=== PATIENT | male | born 1950 | race Caucasian/White ===

== ENCOUNTER 2016-11-26 15:20 | Emergency (ER) | payer MEDICARE, OTHER | END 2016-11-26 16:08 | disposition home or self-care (01) | DX: R59.0 Localized enlarged lymph nodes (principal); S29.011A Strain of muscle and tendon of front wall of thorax, initial encounter; X50.9XXA Other and unspecified overexertion or strenuous movements or postures, initial encounter; I10 Essential (primary) hypertension; I25.10 Atherosclerotic heart disease of native coronary artery without angina pectoris; I25.2 Old myocardial infarction; E11.9 Type 2 diabetes mellitus without complications; Z79.4 Long term (current) use of insulin; E78.00 Pure hypercholesterolemia, unspecified; G47.30 Sleep apnea, unspecified; K21.9 Gastro-esophageal reflux disease without esophagitis; N40.0 Benign prostatic hyperplasia without lower urinary tract symptoms; F17.200 Nicotine dependence, unspecified, uncomplicated ==

== ENCOUNTER 2016-12-23 08:33 | Day surgery (SDC) | payer MEDICARE, OTHER ==
[2016-12-23] MEDS ORDERED: LACTATED RINGERS 1,000 ML IV ONE ×2 (09:28→11:16)
[2016-12-23] MEDS ORDERED: fentaNYL 100 MCG/2 ML VIAL IVP ONE (10:37)
[2016-12-23] MEDS ORDERED: MIDAZOLAM 2 MG/2 ML VIAL IVP ONE (10:37)
== END 2016-12-23 08:34 | disposition home or self-care (01) ==
PROC: 0DJD8ZZ Inspection of Lower Intestinal Tract, Via Natural or Artificial Opening Endoscopic (ICD-10-PCS; principal; 2016-12-23 10:00)
DX: Z12.11 Encounter for screening for malignant neoplasm of colon (principal); Z86.010 Personal history of colon polyps; Z79.82 Long term (current) use of aspirin; E78.00 Pure hypercholesterolemia, unspecified; E11.9 Type 2 diabetes mellitus without complications; Z79.84 Long term (current) use of oral hypoglycemic drugs; I25.2 Old myocardial infarction; J45.909 Unspecified asthma, uncomplicated; G47.30 Sleep apnea, unspecified
CPT/HCPCS: G0105; J7120

== ENCOUNTER 2017-04-17 08:41 | Outpatient (CLI) | payer MEDICARE, OTHER ==
--- NOTE | 2017-04-17 19:55 | CT Report ---
EXAM CT LUNG SCREEN EXAM DATE: 04/17/2017 09:10 AM. HISTORY: 66-year-old patient with [id number] smoking history . Currently smoking: Yes. . COMPARISON: None. TECHNIQUE: CT examination of the entire thorax without contrast was performed using low-dose techniqu e. Thin section coronal, axial, sagittal and MIP axial images were obtained. In accordance with CT protocol optimization, one or more of the following dose reduction techniques w ere utilized for this exam: automated exposure control, adjustment of mA and/or KV based on patient s ize, or use of iterative reconstructive technique. FINDINGS: Nodules: Right upper lobe: None. Right middle lobe: None. Right lower lobe: None. Left upper lobe: None. Left lower lobe: None. Emphysema: None. Pleura: Unremarkable. Aorta: Mild atherosclerotic calcifications. Mediastinum: Unremarkable. Coronary Calcifications: Mild Other Findings: None. IMPRESSION: Negative Lung-RADS ASSESSMENT CATEGORY: 1 - negative RECOMMENDATION: Continue with annual screening with low-dose CT in 12 months. [facility] Referring Provider Line: [phone] SITE ID: [id number]
== END 2017-04-17 08:42 | disposition home or self-care (01) ==
LOC: DI 08:41
PROVIDERS: ATTEND Physician Assistant
DX: Z12.2 Encounter for screening for malignant neoplasm of respiratory organs (principal); F17.210 Nicotine dependence, cigarettes, uncomplicated

== ENCOUNTER 2017-05-25 10:40 | Outpatient (CLI) | payer MEDICARE, OTHER | END 2017-05-25 10:41 | disposition home or self-care (01) | LOC: SC 10:40 | PROVIDERS: ATTEND Nurse Practitioner Family | DX: G47.33 Obstructive sleep apnea (adult) (pediatric) (principal) | CPT/HCPCS: 99214; G0463; 99212 ==

== ENCOUNTER 2017-06-18 14:16 | Outpatient (CLI) | payer MEDICARE, OTHER ==
[2017-06-18 14:38] LABS: CALCIUM 9.4 mg/dL (8.5-10.3); POTASSIUM 4.2 mmol/L (3.5-5.0)
== END 2017-06-18 14:17 | disposition home or self-care (01) ==
LOC: LAB 14:16
PROVIDERS: ATTEND Physician Assistant
DX: I50.9 Heart failure, unspecified (principal)
CPT/HCPCS: 36415; 80048

== ENCOUNTER 2017-07-03 09:00 | Emergency (ER) | payer MEDICARE, OTHER ==
[2017-07-03 09:27] VITALS: BP 111/62
--- NOTE | 2017-07-03 10:20 | ED Physician Documentation ---
PD HPI URI - Stated complaint Stated Complaint: THROAT PX/CONGESTION - Chief complaint Chief Complaint: Resp - History obtained from History obtained from: Patient - History of Present Illness Timing - onset: How many days ago (3-4) Timing duration: Days Timing details: Gradual onset, Still present Associated symptoms: Fever, Chills, Productive cough, Dyspnea. No: Hemoptysis, Chest pain, NVD Contributing factors: COPD / asthma. No: Sick contact, Travel Similar symptoms before: Diagnosis (bronchitis and asthma exac.) Recently seen: Not recently seen Review of Systems Constitutional: reports: Fever, Chills, Myalgias Nose: reports: Congestion Throat: reports: Sore throat Cardiac: denies: Chest pain / pressure, Palpitations Respiratory: reports: Dyspnea, Cough, Wheezing GI: denies: Abdominal Pain, Nausea, Vomiting, Diarrhea PD PAST MEDICAL HISTORY - Past Medical History Past Medical History: Yes Cardiovascular: Hypertension, High cholesterol, Coronary artery disease, [place] Respiratory: Sleep apnea, CPAP use, Other Endocrine/Autoimmune: Type 2 diabetes GI: GERD : Benign prostate hypertrophy HEENT: Glaucoma Psych: Depression Musculoskeletal: Chronic back pain Derm: Other - Past Surgical History Past Surgical History: Yes General: Cholecystectomy, Appendectomy, Colonoscopy - Present Medications Home Medications: Ambulatory Orders Medication Instructions Recorded Confirmed Dorzolamide/Timolol/Pf [Cosopt Pf 1 each OP DAILY 02/01/14 12/23/16 Eye Drops] Fluticasone/Salmeterol [Advair 250 mcg INH BID 02/01/14 12/23/16 250-50 Diskus] Furosemide [Lasix] 40 mg PO DAILY PRN 02/01/14 12/23/16 Insulin Regular, Human [Humulin R] 16 unit SQ DAILY PM 02/01/14 12/23/16 Insulin Regular, Human [Humulin R] 26 unit SQ QDBREAKFAST 02/01/14 12/22/16 Ipratropium/Albuterol [Combivent 4 gm IH QID PRN 02/01/14 12/23/16 Respimat] Lisinopril 10 mg PO DAILY 02/01/14 12/23/16 Metformin HCl [Glucophage Xr] 1,000 mg PO QPM 02/01/14 12/23/16 Metoprolol Tartrate 100 mg PO DAILY 02/01/14 12/23/16 Terazosin [Hytrin] 10 mg PO DAILY 02/01/14 12/23/16 Insulin NPH Human Isophane 0 units SQ TID PRN 02/02/14 12/23/16 [Novolin N] Aspirin 325 mg PO DAILY 12/22/16 12/22/16 Empagliflozin/Metformin HCl 1,000 mg PO BID 12/22/16 12/23/16 [Synjardy 5-1,000 mg Tablet] Ibuprofen [Motrin] 800 mg PO DAILY 12/22/16 12/22/16 Rosuvastatin Calcium [Crestor] 20 mg PO DAILY 12/22/16 12/23/16 Azithromycin [Zithromax] 250 mg PO DAILY #6 tablet 07/03/17 Benzonatate [Tessalon] 100 mg PO TID PRN #25 capsule 07/03/17 guaiFENesin/CODEINE [Robitussin AC] 10 ml PO Q6H PRN #240 ml 07/03/17 - Allergies Allergies/Adverse Reactions: Allergies Allergy/AdvReac Type Severity Reaction Status Date / Time prednisone AdvReac Rash Verified 07/03/17 09:27 - Social History Does the pt smoke?: Yes Smoking Status: Current every day smoker Does the pt drink ETOH?: Yes ETOH Use: Wine, Beer, Liquor Does the pt have substance abuse?: No - Immunizations Immunizations are current?: Yes - POLST Patient has POLST: No PD ED PE NORMAL - Vitals Vital signs reviewed: Yes - General General: Alert and oriented X 3, No acute distress, Well developed/nourished - HEENT HEENT: Moist mucous membranes, Pharynx benign - Neck Neck: Supple, no meningeal sign, No adenopathy - Cardiac Cardiac: RRR, No murmur - Respiratory Respiratory: Clear bilaterally, Other - Abdomen Abdomen: Soft, Non tender - Derm Derm: Normal color, Warm and dry, No rash Results - Vitals Vitals: Vital Signs - 24 hr 07/03/17 09:22 Temperature 36.5 C Heart Rate 66 Respiratory 18 Rate Blood Pressure 111/62 O2 Saturation 98 Oxygen O2 Source Room air PD MEDICAL DECISION MAKING - ED course Complexity details: considered differential, d/w patient (he is quite convinced that antibiotics will be important to recovery. Will treat with Zpack and also / cough med. He does not like to take steroids of any sort. ) Departure - Departure Disposition: Home, Self Care Clinical Impression: Upper respiratory infection Qualifiers: URI type: unspecified URI Qualified Code(s): J06.9 - Acute upper respiratory infection, unspecified Condition: Stable Record reviewed to determine appropriate education?: Yes Instructions: ED Upper Resp Infec Abx Tx Follow-Up: Uriel Crystal MD [Primary Care Provider] - Prescriptions: Azithromycin [Zithromax] 250 mg PO DAILY #6 tablet Benzonatate [Tessalon] 100 mg PO TID PRN #25 capsule PRN Reason: Cough guaiFENesin/CODEINE [Robitussin AC] 10 ml PO Q6H PRN #240 ml PRN Reason: Cough Comments: Drink lots of fluids. Continue the guaifenesin for congestion. Tylenol or ibuprofen if needed for fevers and pains. This is most likely a viral illness though there is potential for bacterial sometimes. The Zithromax as you have taken in the past as directed for 5 days. Use Tessalon and cough medicine if needed for cough and congestion. Recheck if not improving over the next 3-5 days. Discharge Date/Time: 07/03/17 10:36
== END 2017-07-03 10:36 | disposition home or self-care (01) ==
LOC: ED 09:00
DX: J06.9 Acute upper respiratory infection, unspecified (principal); I10 Essential (primary) hypertension; I25.10 Atherosclerotic heart disease of native coronary artery without angina pectoris; I25.2 Old myocardial infarction; E11.9 Type 2 diabetes mellitus without complications; Z79.4 Long term (current) use of insulin; E78.00 Pure hypercholesterolemia, unspecified; K21.9 Gastro-esophageal reflux disease without esophagitis; N40.0 Benign prostatic hyperplasia without lower urinary tract symptoms; G47.30 Sleep apnea, unspecified; F17.200 Nicotine dependence, unspecified, uncomplicated
CPT/HCPCS: 99283

== ENCOUNTER 2017-07-06 09:39 | Outpatient (CLI) | payer MEDICARE, OTHER | END 2017-07-06 09:40 | disposition home or self-care (01) | LOC: SC 09:39 | PROVIDERS: ATTEND Nurse Practitioner Family | DX: G47.33 Obstructive sleep apnea (adult) (pediatric) (principal) | CPT/HCPCS: 99214; G0463; 99212 ==

== ENCOUNTER 2018-01-04 11:53 | Outpatient (CLI) | payer MEDICARE, OTHER ==
[2018-01-04 12:52] LABS: BASOPHILS # (AUTO) 0.1 10^3/uL (0.0-0.1); BASOPHILS % (AUTO) 0.6 %; EOSINOPHILS # (AUTO) 0.3 10^3/uL (0.0-0.7); EOSINOPHILS % (AUTO) 2.9 %; LYMPHOCYTES # (AUTO) 1.6 10^3/uL (1.5-3.5); LYMPHOCYTES % (AUTO) 14.6 %; MEAN CORPUSCULAR HEMOGLOBIN 28.9 pg (27.0-31.0); MEAN CORPUSCULAR HGB CONC 33.5 g/dL (32.0-36.0); MEAN CORPUSCULAR VOLUME 86.2 fL (80.0-94.0); MONOCYTES # (AUTO) 0.6 10^3/uL (0.0-1.0); MONOCYTES % (AUTO) 5.5 %; NEUTROPHILS # (AUTO) 8.5 10^3/uL (1.5-6.6); NEUTROPHILS % (AUTO) 76.4 %; PLT - PLATELET COUNT 163 10^3/uL (130-450); RED BLOOD COUNT 4.49 10^6/uL (4.70-6.10); RED CELL DISTRIBUTION WIDTH 15.3 % (12.0-15.0); WHITE BLOOD COUNT 11.1 x10^3/uL (4.8-10.8)
[2018-01-04 12:57] LABS: PT - PROTHROMBIN TIME 11.3 secs (9.9-12.6)
--- NOTE | 2018-01-04 13:03 | Ultrasound Report ---
COMPLETE ABDOMINAL ULTRASOUND: 01/04/2018 CLINICAL INDICATION: Right-sided pain. TECHNIQUE: Real-time scanning was performed with title insurance sales representative static images obtained. FINDINGS: The liver measures 18.6 cm. Hepatic echogenicity is diffusely increased, compatible with fatty infiltration. No focal parenchymal lesion or intrahepatic biliary dilatation is seen. The common bile duct measures 5 mm. The gallbladder is surgically absent. The pancreas is obscured by bowel gas. The spleen measures 10.8 cm, and appears unremarkable. The right kidney measures 12.4 cm, and the left kidney measures 13.6 cm. Incidental cysts are present. No hydronephrosis or solid renal mass is seen. The visualized abdominal aorta is normal in caliber. The inferior vena cava is unremarkable. No free fluid is present. IMPRESSION: FATTY INFILTRATION OF THE LIVER. CHANGES OF CHOLECYSTECTOMY. TD: 01/04/2018 12:44
[2018-01-04 13:32] LABS: ALBUMIN 4.3 g/dL (3.2-5.5); ALBUMIN/GLOBULIN RATIO 1.3 (1.0-2.2); ALKALINE PHOSPHATASE 74 IU/L (42-121); ALT ALANINE AMINOTRANSFERASE 29 IU/L (10-60); AMYLASE 175 U/L (28-100); AST ASPARTATE AMINOTRANSFERASE 22 IU/L (10-42); BILIRUBIN,TOTAL 0.6 mg/dL (0.2-1.0); BUN - BLOOD UREA NITROGEN 27 mg/dL (6-20); CALCIUM 9.6 mg/dL (8.5-10.3); CARBON DIOXIDE - CO2 27 mmol/L (21-32); CHLORIDE 103 mmol/L (101-111); CHOL/HDL RATIO 3.7 (<5.0); CHOLESTEROL 143 mg/dL; CREATININE 1.1 mg/dL (0.6-1.2); GFR - MDRD 66 (>89); GLUCOSE 119 mg/dL (70-100); HDL CHOLESTEROL 39 mg/dL; LDL CHOLESTEROL,CALCULATED 71 mg/dL; LDL/HDL RATIO 1.8 (<3.6); LIPASE 301 U/L (22-51); SODIUM 139 mmol/L (135-145); TOTAL PROTEIN 7.6 g/dL (6.7-8.2); VLDL CHOLESTEROL 33 mg/dL
== END 2018-01-04 11:54 | disposition home or self-care (01) ==
LOC: DI 11:53
PROVIDERS: ATTEND Specialist
DX: R10.11 Right upper quadrant pain (principal); E11.9 Type 2 diabetes mellitus without complications; C61 Malignant neoplasm of prostate; K76.0 Fatty (change of) liver, not elsewhere classified
CPT/HCPCS: 36415; 76700; 80053; 80061; 82150; 83690; 83721; 84153; 85025; 85610; 85730

== ENCOUNTER 2018-01-07 06:47 | Outpatient (CLI) | payer MEDICARE, OTHER ==
[2018-01-07] MEDS ORDERED: IOPAMIDOL-300 100 ML VIAL ONE (07:51)
[2018-01-07] MEDS ORDERED: IOPAMIDOL-300 100 ML VIAL IVP ONE (08:14)
--- NOTE | 2018-01-07 12:46 | CT Report ---
CT ABDOMEN WITH AND WITHOUT CONTRAST: 01/07/2018 INDICATION: Pancreatitis. COMPARISON: Ultrasound 01/04/2018. TECHNIQUE: Axial CT images of the abdomen were obtained prior to and following 100 mL Isovue 300 intravenously, with early arterial and portal venous phase images obtained. FINDINGS: Limited evaluation of the lung bases is unremarkable. The patient is status post cholecystectomy. The liver, spleen, and adrenal glands are unremarkable. The kidneys demonstrate cortical cysts bilaterally. The pancreas demonstrates homogeneous attenuation and enhancement. There is no evidence of pancreatic mass or inflammation. No bowel dilatation, free gas, or free fluid is present. No abdominal adenopathy is seen. Osseous structures demonstrate degenerative changes. IMPRESSION: NO EVIDENT COMPLICATIONS OF PANCREATITIS. CHANGES OF CHOLECYSTECTOMY. CT DOSE REDUCTION STATEMENT In accordance with CT protocol optimization, one or more of the following dose reduction techniques were utilized for this exam: automated exposure control, adjustment of mA and/or KV based on patient size, or use of iterative reconstructive technique. TD: 01/07/2018 10:54
== END 2018-01-07 06:48 | disposition home or self-care (01) ==
LOC: DI 06:47
PROVIDERS: ATTEND Specialist
DX: R74.8 Abnormal levels of other serum enzymes (principal); K85.90 Acute pancreatitis without necrosis or infection, unspecified
CPT/HCPCS: 74170; Q9967

== ENCOUNTER 2018-03-07 14:42 | Outpatient (CLI) | payer MEDICARE, OTHER ==
--- NOTE | 2018-03-07 16:58 | XRAY Report ---
Procedure Date: 03/07/2018 Accession Number: [id number] / [id number] Procedure: XR - Wrist 4 View RT CPT Code: FULL RESULT: EXAM: RIGHT WRIST RADIOGRAPHY EXAM DATE: 03/07/2018 02:53 PM. CLINICAL HISTORY: Right dorsal wrist pain for one month, no known trauma. COMPARISON: None. TECHNIQUE: 4 views. FINDINGS: Bones: 2 x 3 mm well-corticated calcification dorsal to the distal carpal row, close to the base of central metacarpal on the lateral view. The rest of the trabecular and cortical patterns are unremarkable. Joints: Normal. No subluxations. Soft Tissues: Normal. No soft tissue swelling. IMPRESSION: Fragmentation of a small osteophyte dorsal aspect of a central metacarpal in the area of the carpal-metacarpal joint, of indeterminant age. Is this the area of clinical concern? [facility]
== END 2018-03-07 14:43 | disposition home or self-care (01) ==
LOC: DI 14:42
PROVIDERS: ATTEND Internal Medicine
DX: M25.731 Osteophyte, right wrist (principal); M24.031 Loose body in right wrist

== ENCOUNTER 2018-03-16 15:42 | Outpatient (CLI) | payer MEDICARE, OTHER | END 2018-03-16 15:43 | disposition home or self-care (01) | LOC: SC 15:42 | PROVIDERS: ATTEND Nurse Practitioner Family | DX: G47.33 Obstructive sleep apnea (adult) (pediatric) (principal) | CPT/HCPCS: 99214; G0463; 99212 ==

== ENCOUNTER 2019-03-21 14:46 | Outpatient (CLI) | payer MEDICARE, OTHER ==
[2019-03-21 16:04] VITALS: BP 132/60
--- NOTE | 2019-03-21 16:04 | SLEEP CARE CONSULTATION ---
Information from patient questionnaire entered by Tiffanie Nguyen. I have reviewed and concur with the information entered by Tiffanie Nguyen. This document represents the service I personally performed and the decisions made by me, Anny Merritt, RN, MSN, STRAIGHT EDGER. - History of Present Illness HPI: RUDY BENSON was diagnosed to have very severe, AHI 81.3, obstructive sleep apnea-hypopnea syndrome and returned today for BIPAP therapy annual follow-up. He has been having difficulty getting his mask style, the Fit for Life despite promises from [facility] staff. He has tried other mask styles but either leak or have a magnet that cannot be used since getting his pacemaker. His nasal congestion is better with starting Flonase. Changes in medical history is an aortic valve replacement and pacemaker resulting in much more energy especially since cardiac rehab. Equipment obtained from: [facility] Mask style: Full face Mask brand: Respironics (Fit for Life) Backup mask available: Yes Last cushion change: 3 months - Compliance Data Reviewed with Patient Average duration of nightly device use: 9.8 Compliance rate % (4+hrs/night over past 30 nights): 97.8 Current pressure setting (cmH2O): 23/ BiPAP Humidity settin Heated hose settin Average residual AHI: 5.4 Central apnea: 0.0 Obstructive apnea: 1.0 Hypopnea: 4.4 - Subjective Missed days of use due to: reports: illness Patient concerns: reports: mask leak noise, dry mouth, nose, throat. denies: aerophagia, mask discomfort, air blowing in eyes, condensation in mask/hose, nasal congestion, epistaxis, other Observed to snore while using device: No (single and lives alone) Current pressure setting perceived as: comfortable On therapy, patient reports: sleeping better, awakening more refreshed, being more awake and alert during the day, other (denies drowsy driving) Initial [place] Sleepiness Scale score: 12 Current [place] Sleepiness Scale score: 3 - Review of Systems Cardiovascular: reports: high blood pressure (controlled with medication), irregular heart rate or pulse (atrial fibrillation / flutter October 2018 with cardioversion with success), other (Patient had a replacement aortic valve and a pacemaker for bradycardia in October 2018.). denies: palpitations, chest pain, leg or foot swelling, have to sleep sitting up Respiratory: denies: shortness of breath, wheeze, sputum production, chronic cough, other Gastrointestinal: denies: heartburn, difficulty swallowing, nausea, vomitting, diarrhea, abdominal pain, other Urinary: denies: incontinence, frequency, urgency, impotence, other Neurological: denies: headaches, seizure, head trauma, disorientation, speech dysfunction, gait or balance problems, fainting or unconsciousness, other Psychiatric: denies: Attention Deficit Hyperactivity, anxiety, depression, mood disorder, claustrophobia, other Ear/Nose/Throat: reports: nasal congestion (better with Flonase), dry mouth/throat. denies: sinus problems, nose bleeds, hoarseness, injury to nose, tonsillectomy, wisdom teeth removed, other Endocrine: denies: thyroid disease, history of goiter, sluggishness, too hot or cold, excessive thirst, increased appetite, increased urination, unexplained weakness, other Musculoskeletal: reports: joint pain (Past injuries). denies: neck pain, back pain, joint swelling, muscle pain or cramping, mobility problems, other Immunologic: denies: sneezing, rash, itching, allergies to food or environment, other - Allergies/Medications Medication Name (generic/name brand) Strength & Dosage xeralto 20mg HS aspirin 81mg daily Humulin R 500units/ml Inject 0.26ml in the am 0.16ml in the pm Lasix (Furosemide) 40mg tab one-two daily Novolog 100units/ml Use as directed for sliding scale Combivent Respimat 100mcg-20mcg/inh One puff four times a day as needed Lisinopril 10mg tab one daily Fluticasone Propionate 50mcg/inh nasal One spray per nostril daily Crestor (Rosuvastatin Calcium) 20mg tab one daily Metoprolol Succinate ER 100g tab one daily Albuterol Sulfate 2.5mg/3ml 0.083% Inhale one vial q4-6hrs prn Advair Diskus 250-50mcg/dose powder One puff twice daily Synjardy (Empagliflozin-Metformin HCI) 5-100mg tab one twice daily Allergies and home medications reviewed: Yes - Physical Examination Blood Pressure: 132/60 Cuff size: long Heart Rate: 71 (regular rhythm) O2 Saturation: 98 Height: 5 ft 8 in Weight (kg): 124.829 kg Body Mass Index: 41.8 BMI Classification: Class 3 - Impression 1. Obstructive Sleep Apnea-Hypopnea Syndrome, very severe, with good treatment compliance and slightly elevated residual AHI that is probably due to increase in mask leaks. He is due for new mask but has been having difficulty obtaining from [facility]. Thus I wrote a mask specific prescription. He is advised to contact this office if still no mask in a week. His mask only can be replaced every 3 months and is best mask so far for fit with such a high BIPAP pressure. On BiPAP therapy, there is improved sleep quality and continues to feel more rested overall. He has been having increased energy and activity with recent heart surgery and pacemaker in addition to cardiac rehab. For dry mouth, he is a dvised to lower heated hose and raise humidity if needed. If no resolution with increase of humidity to maximum, he can try xylimelts. Since he has started to lose weight with the goal of losing 25 pounds more by end of year, I discussed how weight change affects his BiPAP pressure. Patient advised of symptoms to report for future pressure adjustment. Patient's apnea severity and rationale for treatment to reduce apnea, improve sleep quality and reduce cardiovascular and cerebrovascular events was reviewed. I also reviewed the benefit of consistent device use of BIPAP for hypertension, cardiac disease, arrhythmia, diabetes. - Plan Plan: Continue BiPAP pressure at 23/19 cm H2O. Prescription for specific mask Adjust heated hose and humidity Continue to lose weight. Notify me if snoring with the mask or feeling that the pressure is too much or too little. Return for follow-up in one year, or sooner if concerns arise. I spent 100% of this 40 minute visit face to face with the patient with greater than 50% of this was spent time counseling the patient and coordination of care.
== END 2019-03-21 14:47 | disposition home or self-care (01) ==
LOC: SC 14:46
PROVIDERS: ATTEND Nurse Practitioner Family
DX: G47.33 Obstructive sleep apnea (adult) (pediatric) (principal)
CPT/HCPCS: 99215; G0463; 99212

== ENCOUNTER 2019-09-23 11:31 | Outpatient (CLI) | payer MEDICARE, OTHER ==
[2019-09-23 12:05] LABS: ALBUMIN 4.6 g/dL (3.2-5.5); ALBUMIN/GLOBULIN RATIO 1.6 (1.0-2.2); ALKALINE PHOSPHATASE 82 IU/L (42-121); ALT ALANINE AMINOTRANSFERASE 29 IU/L (10-60); AST ASPARTATE AMINOTRANSFERASE 25 IU/L (10-42); BILIRUBIN,TOTAL 0.8 mg/dL (0.2-1.0); BUN - BLOOD UREA NITROGEN 31 mg/dL (6-20); CALCIUM 9.2 mg/dL (8.5-10.3); CARBON DIOXIDE - CO2 26 mmol/L (21-32); CHLORIDE 102 mmol/L (101-111); CHOL/HDL RATIO 3.9 (<5.0); CHOLESTEROL 131 mg/dL; CREATININE 1.1 mg/dL (0.6-1.2); GFR - MDRD 66 (>89); GLUCOSE 165 mg/dL (70-100); HDL CHOLESTEROL 34 mg/dL; LDL CHOLESTEROL,CALCULATED 66 mg/dL; LDL/HDL RATIO 1.9 (<3.6); SODIUM 140 mmol/L (135-145); TOTAL PROTEIN 7.5 g/dL (6.7-8.2); VLDL CHOLESTEROL 31 mg/dL
== END 2019-09-23 11:32 | disposition home or self-care (01) ==
LOC: LAB 11:31
PROVIDERS: ATTEND Internal Medicine Cardiovascular Disease
DX: I10 Essential (primary) hypertension (principal)
CPT/HCPCS: 36415; 80053; 80061; 83721

== ENCOUNTER 2020-05-23 12:59 | Outpatient (CLI) | payer MEDICARE, OTHER | END 2020-05-23 13:00 | disposition home or self-care (01) | LOC: COV 12:59 | PROVIDERS: ATTEND Family Medicine | DX: Z20.828 Contact with and (suspected) exposure to other viral communicable diseases (principal) ==

== ENCOUNTER 2020-06-03 12:58 | Outpatient (CLI) | payer MEDICARE, OTHER ==
--- NOTE | 2020-06-03 18:29 | CT Report ---
PROCEDURE: Abdomen/Pelvis WO INDICATIONS: LEFT SIDED FLANK PAIN-POSSIBLE STONE TECHNIQUE: Noncontrast 5 mm thick sections acquired from the diaphragms to the symphysis. 5 mm coronal and sagi ttal reformats were then performed. For radiation dose reduction, the following was used: automated exposure control, adjustment of mA and/or kV according to patient size. COMPARISON: CT abdomen and pelvis 01/07/2018. FINDINGS: Image quality: Excellent. ABDOMEN: Lung bases: Lung bases are clear. Heart size is normal. TAVR stent is in the expected position. Pac emaker leads. Solid organs: Liver and spleen are normal in size. Gallbladder is absent. Pancreas is normal in co ntours. No adrenal nodules. Kidneys are normal in size, without hydronephrosis or definite nephroli thiasis. Calcifications near the renal hilum are likely vascular in nature, similar the prior CT. Sim ple appearing bilateral renal cysts. Right renal peripelvic cysts. A few cysts are too small to furth er characterize. Peritoneum and bowel: Unenhanced bowel loops demonstrate normal wall thickness and caliber. No free fluid or air. Somewhat prominent stool in the left colon. Nodes and vessels: No retroperitoneal or mesenteric adenopathy by size criteria. Infrarenal abdomina l aortic aneurysm measuring 3.3 cm, (6/39), unchanged since 2018. Miscellaneous: No ventral hernias. Mild subcutaneous stranding in the right ventral abdominal wall. This could be due to injections. PELVIS: Genitourinary: Bladder is unremarkable.. Miscellaneous: Question of fat-containing inguinal hernias. No adenopathy. Bones: No suspicious bony lesions. No vertebral body compression fractures. IMPRESSION: 1. No definite kidney stones. No hydronephrosis. 2. No acute inflammatory process identified. No free fluid. 3. Stable infrarenal AAA measuring 3.3 cm. If symptoms persist and clinically indicated consider follow-up CT abdomen and pelvis with IV contras t. Reviewed by: Joe Aldana MD on 06/03/2020 6:27 PM PDT Approved by: Joe Aldana MD on 06/03/2020 6:27 PM PDT Station ID: [id number]
== END 2020-06-03 12:59 | disposition home or self-care (01) ==
LOC: DI 12:58
PROVIDERS: ATTEND Physician Assistant
DX: I71.4 Abdominal aortic aneurysm, without rupture (principal)
CPT/HCPCS: 74176

== ENCOUNTER 2020-10-30 09:16 | Emergency (ER) | payer MEDICARE, OTHER ==
--- NOTE | 2020-10-30 10:23 | ED Physician Documentation ---
PD HPI MALE - Stated complaint Stated Complaint: MALE - Chief complaint Chief Complaint: Wound - History obtained from History obtained from: Patient - History of Present Illness Timing - onset: How many days ago (few) Timing - duration: Days (few) Timing - details: Gradual onset, Still present Associated symptoms: Other (right inguinal lump that is tender and slightly draining.). No: Dysuria, Urinary frequency PD HPI MALE CONTRIB FACTORS: Not sexually active Similar symptoms before: Has not had sx before Recently seen: Not recently seen Review of Systems Constitutional: denies: Fever, Chills : denies: Dysuria, Frequency, Discharge Musculoskeletal: denies: Back pain PD PAST MEDICAL HISTORY - Past Medical History Cardiovascular: Hypertension, High cholesterol, Coronary artery disease, [place] Respiratory: Sleep apnea, CPAP use, Other Endocrine/Autoimmune: Type 2 diabetes GI: GERD : Benign prostate hypertrophy HEENT: Glaucoma Psych: Depression Musculoskeletal: Chronic back pain Derm: Other - Past Surgical History Past Surgical History: Yes General: Cholecystectomy, Appendectomy, Colonoscopy - Present Medications Home Medications: Ambulatory Orders Medication Instructions Recorded Confirmed Fluticasone/Salmeterol [Advair 250 mcg INH BID 02/01/14 10/30/20 250-50 Diskus] Furosemide [Lasix] 40 mg PO DAILY PRN 02/01/14 10/30/20 Insulin Regular, Human [Humulin R] 16 unit SQ DAILY PM 02/01/14 10/30/20 Insulin Regular, Human [Humulin R] 26 unit SQ QDBREAKFAST 02/01/14 10/30/20 Ipratropium/Albuterol [Combivent 4 gm IH QID PRN 02/01/14 10/30/20 Respimat] Lisinopril 10 mg PO DAILY 02/01/14 10/30/20 Metformin HCl [Glucophage Xr] 1,000 mg PO QPM 02/01/14 10/30/20 Metoprolol Tartrate 100 mg PO DAILY 02/01/14 10/30/20 Terazosin [Hytrin] 10 mg PO DAILY 02/01/14 10/30/20 Empagliflozin/Metformin HCl 1,000 mg PO BID 12/22/16 10/30/20 [Synjardy 5-1,000 mg Tablet] Ibuprofen [Motrin] 800 mg PO DAILY 12/22/16 10/30/20 Rosuvastatin Calcium [Crestor] 20 mg PO DAILY 12/22/16 10/30/20 Aspirin [[place] Aspirin] 1 tab DAILY 10/30/20 10/30/20 Rivaroxaban [Xarelto] 20 mg PO DAILY 10/30/20 10/30/20 Sulfamethox/Trimeth 800/160 1 each PO BID #14 tablet 10/30/20 [Bactrim Ds 800/160] Syringe,Insul U-500,Ndl,0.5ML 60 units QPM 10/30/20 10/30/20 [Insulin Syringe U-500] Syringe,Insul U-500,Ndl,0.5ML 130 units DAILY 10/30/20 10/30/20 [Insulin Syringe U-500] - Allergies Allergies/Adverse Reactions: Allergies Allergy/AdvReac Type Severity Reaction Status Date / Time prednisone AdvReac Rash Verified 10/30/20 09:21 - Social History Does the pt smoke?: Yes Smoking Status: Current every day smoker Does the pt drink ETOH?: Yes Does the pt have substance abuse?: No - Immunizations Immunizations are current?: Yes - POLST Patient has POLST: No PD ED PE NORMAL - Vitals Vital signs reviewed: Yes - General General: Alert and oriented X 3, No acute distress, Well developed/nourished - Male Male : Other (right inguinal 2 cm lump that is tender and red. Minimal pimple like lesion at apex. Bedside U/S showed fluid in the center and no connection to inguinal vessels (deeper and medial to the abscess). ) - Derm Derm: Normal color, Warm and dry - Neuro Neuro: Alert and oriented X 3, No motor deficit, No sensory deficit, Normal speech Results - Vitals Vitals: Vital Signs - 24 hr 10/30/20 10/30/20 09:18 12:08 Temperature 36.0 C L 37.1 C Heart Rate 75 72 Respiratory 20 17 Rate Blood Pressure 161/65 H 152/76 H O2 Saturation 95 100 Oxygen O2 Source Room air - Labs Labs: Microbiology 10/30/20 11:56 Wound Culture - Preliminary Abdomen Procedures - Abscess I&D (location) right inguinal Preparation: Confirmed with ultrasound, Lidocaine 2 %, With epi Incision: Incised with scalpel, Purulent drainage, Irrigated, Culture obtained. No: Packed Other: Pt tolerated well, Dressing applied, Antibiotic prescribed Departure - Departure Disposition: Home, Self Care Clinical Impression: Inguinal abscess Condition: Stable Record reviewed to determine appropriate education?: Yes Instructions: ED Abscess IandD Follow-Up: Matias Winston MD [Primary Care Provider] - Prescriptions: Sulfamethox/Trimeth 800/160 [Bactrim Ds 800/160] 1 each PO BID #14 tablet Comments: This should improve fairly readily with the incision and drainage in the removal of the pus pocket. However there is still some infection surrounding in the soft tissue so take Bactrim antibiotic twice daily for 5 days. Warm compresses or soaks for the area to promote drainage. Clean with soap and water. No ointment or such for the first couple of days to allow better drainage then routine wound care following that. Recheck if not improving well over the next several days and resolving. Tylenol if needed for pains. Discharge Date/Time: 10/30/20 12:13
[2020-10-30] MEDS ORDERED: LIDOCAINE MPF 1%-EPI 1:200000 10 ML VIAL SUBQ STA (10:39)
[2020-10-30] MEDS ORDERED: SULFAMETH/TRIMETH DS 800/160 MG TABLET PO STA (10:39)
[2020-10-30] MEDS ORDERED: LIDOCAINE 2%-EPI 1:100000 20 ML MDV SUBQ STA (11:30)
[2020-10-30 12:08] VITALS: BP 152/76
== END 2020-10-30 12:13 | disposition home or self-care (01) ==
LOC: ED 09:16
DX: L02.214 Cutaneous abscess of groin (principal); I10 Essential (primary) hypertension; E11.9 Type 2 diabetes mellitus without complications; Z79.4 Long term (current) use of insulin; Z79.82 Long term (current) use of aspirin; F17.200 Nicotine dependence, unspecified, uncomplicated
CPT/HCPCS: 10060; 87070; 87077; 87181; 87205; 99283; A9270

== ENCOUNTER 2020-12-31 14:37 | Outpatient (CLI) | payer MEDICARE, OTHER ==
[2020-12-31] MEDS ORDERED: IOPAMIDOL-300 100 ML VIAL ONE (14:48)
--- NOTE | 2020-12-31 17:16 | CT Report ---
PROCEDURE: IVP INDICATIONS: HEMATURIA CONTRAST: IV CONTRAST: Isovue 300 ml: 140 PO CONTRAST: *NO PO CONTRAST TECHNIQUE: After the administration of intravenous contrast, 5 mm thick sections acquired from the diaphragms to the symphysis. 5 mm thick coronal and sagittal reformats were acquired. For radiation dose reducti on, the following was used: automated exposure control, adjustment of mA and/or kV according to rashmi ent size. COMPARISON: CT abdomen and pelvis 08/03/2020 FINDINGS: Image quality: Excellent. Lung bases: Lung bases are clear. Heart size is normal. Urinary system: Kidneys demonstrate mild atrophy. Right parapelvic cyst is present. Exophytic cysts a re present bilaterally the largest on the left measuring 5.8 cm. Contrast-filled renal calyces are no rmal in morphology. Contrast filled portions of both ureters are normal in caliber. Bladder wall th ickness is normal. Solid organs: Liver and spleen are normal in size and enhancement. Gallbladder has been Biliary sy stem is non dilated. Pancreas enhances normally. No adrenal nodules. Peritoneum and bowel: Bowel loops demonstrate normal wall thickness and caliber. No free fluid or a ir. Nodes and vessels: No retroperitoneal or mesenteric adenopathy by size criteria. Aorta demonstrates mild prominence in the infrarenal portion measuring approximately 3.3 cm. Abdominal wall: No ventral hernias. Pelvis: No pathologic free pelvic fluid. Fat-containing hernias are present. Bones: No suspicious bony lesions. No vertebral body compression fractures. IMPRESSION: 1. No visualized cause of hematuria. 2. Bilateral renal cysts. Reviewed by: Kennedi Hackett MD on 12/31/2020 5:15 PM PDT Approved by: Kennedi Hackett MD on 12/31/2020 5:15 PM PDT Station ID: [id number]
[2020-12-31] MEDS ORDERED: IOPAMIDOL-300 100 ML VIAL IVP ONE (17:48)
== END 2020-12-31 14:38 | disposition home or self-care (01) ==
LOC: DI 14:37
PROVIDERS: ATTEND Internal Medicine
DX: N28.1 Cyst of kidney, acquired (principal)
CPT/HCPCS: 74178; Q9967

== ENCOUNTER 2021-03-21 09:29 | Outpatient (CLI) | payer MEDICARE, OTHER ==
--- NOTE | 2021-03-21 10:02 | SLEEP CARE CONSULTATION ---
Information from patient questionnaire entered by Mary Mckeon. I have reviewed and concur with the information entered by Mary Mckeon. This document represents the service I personally performed and the decisions made by , Evette Cutler ARNP. History of Present Illness Service Date and Time: 03/21/2021 09 Previous diagnosis: Very Severe, Obstructive Sleep Apnea-Hypopnea Syndrome AHI: 81.3 (in 2011) Reason for follow up: annual (last seen 02/2020) Equipment type: BiPAP Equipment obtained from: [employer] (getting supplies as needed) Mask style: Full face Mask brand: Respironics (extra large Fit for Life) Backup mask available: Yes (old mask) Prior sleep studies: Yes Year and Where: 2011 - [facility] Type of Sleep Study: Polysomnography HPI additional information: RUDY BENSON was diagnosed to have very severe, AHI 81.3, obstructive sleep apnea-hypopnea syndrome and returned today for BIPAP therapy annual follow-up. CPAP Compliance Data - Data Reviewed with Patient Average duration of nightly device use: 9 hr 20 min Compliance rate %: 99.4 (180 days) Current pressure setting (cmH2O): 23/23 Humidity settin Heated hose settin Average residual AHI: 5.8 Average large leak: 2 hrs 21 min Subjective Patient concerns: denies: aerophagia, mask discomfort, air blowing in eyes, mask leak noise, condensation in mask/hose, nasal congestion, dry mouth, nose, throat, epistaxis, other Observed to snore while using device: No Current pressure setting perceived as: comfortable On therapy, patient: reports: sleeping better, awakening more refreshed, being more awake and alert during the day, more rested overall. denies: drowsiness while driving Initial Heartwell Sleepiness Scale score: 14 (in 2012) Current Heartwell Sleepiness Scale score: 3 Allergies and Home Medications Home medication list reviewed: Yes (no changes) Review of Systems Review of systems same as previous: Yes (no changes) Physical Exam Heart Rate: 67 O2 Saturation: 96 Height: 5 ft 8 in Weight: 275 lb Body Mass Index: 41.8 BMI Classification: Morbidly Obese Impression and Plan 1. Obstructive Sleep Apnea-Hypopnea Syndrome, very severe, with excellent treatment compliance and fair apnea control with minimal elevation of residual AHI. On BIPAP therapy, the patient has better sleep quality and is more rested overall. His machine is showing the setting of 23/23 cmH2O in the last 6 months and patient has not had this adjusted since last year. He would like it to be put back to 23/19 cmH2O. I also discussed with patient that [employer] has a recall on several devices like the patients machine. Patient was encouraged to register their device online with [employer] for the recall to see if their device is affected. If their device is affected they should start a claim. Patient denies any black particles seen in machine or hoses, any unusual odors coming from device. Patient has not experienced any physical symptoms such as upper airway irritation, headache, skin or eye irritation, asthma, nausea/vomiting, difficulty breathing or chest pain. Patient informed that they may use an inline CPAP filter that they can obtain online to reduce chance of any particles being inhaled or ingested. We discussed thoroughly the health risks of not using the CPAP versus continuing use with the filter in place. If patient is not able to sleep due to waking up choking, gasping for air or other respiratory distress that they may decide to continue using it until it is either replaced or repaired. Since the patients current machine is at least 5 years old the patient is opting to update their device with a device that is not on the recall. The patients CPAP is over 5 years old and of reasonable use. A DWO prescription will be made. Compliance guidelines for new device and follow up discussed. Patient voiced understanding and agreement with plan. Patient's apnea severity and rationale for treatment to reduce apnea, improve sleep quality and reduce cardiovascular and cerebrovascular events was reviewed. I also reviewed the benefit of consistent device use of BIPAP for hypertension and cardiac disease. * Update auto BIPAP * Change auto BIPAP pressure back to 23/19 cmH2O * Notify me if snoring with mask or feeling that the pressure is too much or too little * Attempt to lose weight * Call this office if any problems using BIPAP * Return for follow up one month after obtaining new device, or sooner if concerns arise Counseling Topics: Spare mask, Weight loss health impact Visit Type: In Office Time Spent with Patient (minutes): 21 Provider Statement: I spent 100% of the Face to Face Visit with the patient with greater than 50% spent counseling the patient and coordination of care.
== END 2021-03-21 09:30 | disposition home or self-care (01) ==
LOC: SC 09:29
PROVIDERS: ATTEND Nurse Practitioner Family
DX: G47.33 Obstructive sleep apnea (adult) (pediatric) (principal); E66.01 Morbid (severe) obesity due to excess calories; Z68.41 Body mass index [BMI] 40.0-44.9, adult
CPT/HCPCS: 99213; G0463; 99212

== ENCOUNTER 2021-09-07 13:23 | Emergency (ER) | payer MEDICARE, OTHER ==
[2021-09-07 14:11] VITALS: BP 128/57
== END 2021-09-07 15:00 | disposition left against medical advice (07) ==
LOC: ED 13:23
DX: Z53.21 Procedure and treatment not carried out due to patient leaving prior to being seen by health care provider (principal)

== ENCOUNTER 2021-10-11 09:39 | Outpatient (CLI) | payer MEDICARE, OTHER ==
--- NOTE | 2021-10-11 13:32 | CT Report ---
PROCEDURE: Low Dose Lung Cancer Screen INDICATIONS: CURRENT SMOKER TECHNIQUE: Noncontrast low-dose images were acquired from the pulmonary apices to the posterior costophrenic ang les. Multiplanar MIP reformats were then acquired. For radiation dose reduction, the following was used: automated exposure control, adjustment of mA and/or kV according to patient size. COMPARISON: 04/17/2017 FINDINGS: Image quality: Within normal limits for low dose technique. Lungs and pleura: Along the right oblique fissure, there is focal thickening seen, as on series 4 im age 142 that measures 6 mm. This is unchanged in retrospect compared to 2017. There is a calcified granuloma seen within the left upper lobe, as on series 4 image 129. Mediastinum: Heart size is normal. A percutaneously placed aortic valve prosthesis can be seen. At least moderate coronary artery calcification is seen. No pericardial effusion. No mediastinal adenop athy by size criteria. Thoracic aorta and central pulmonary arteries are normal in size. Esophagus is normal in caliber. No hiatal hernia. Bones and chest wall: No suspicious bony lesions. No vertebral body compression fractures. Age-appr opriate degenerative changes are seen. No axillary or supraclavicular adenopathy by size criteria. The thyroid is normal in size and there are no incidental findings. A left-sided pacer device is see n. Abdomen: Cholecystectomy clips are seen. Visualized upper abdomen solid organs and bowel loops derik ear normal in the absence of contrast. IMPRESSION: No suspicious pulmonary nodules are seen. There is a 6 mm focus of narrowing along the left oblique fissure, which is unchanged compared to 201 7 and regarded to be benign. Lung RADS category: 2 Recommend annual low-dose CT chest screening examinations, as long as the patient meets the published screening criteria. Incidental note is made of: At least moderate coronary artery calcification Prior granulomatous exposure. Pacer device Aortic valve prosthesis Cholecystectomy Reviewed by: Poncho Andrews MD on 10/11/2021 12:30 PM [place] Approved by: Poncho Andrews MD on 10/11/2021 12:30 PM [place] Station ID: [id number]
== END 2021-10-11 09:40 | disposition home or self-care (01) ==
LOC: DI 09:39
PROVIDERS: ATTEND Physician Assistant
DX: Z12.2 Encounter for screening for malignant neoplasm of respiratory organs (principal); F17.210 Nicotine dependence, cigarettes, uncomplicated

== ENCOUNTER 2022-09-06 12:36 | Emergency (ER) | payer MEDICARE, OTHER ==
[2022-09-06 12:43] VITALS: BP 146/61
[2022-09-06] MEDS ORDERED: cephALEXin 250 MG CAPSULE PO STA (12:50)
--- NOTE | 2022-09-06 12:52 | ED Physician Documentation ---
PD HPI LOWER EXT INJURY - Stated complaint Stated Complaint: ANKLE SWELLING/HOT - Chief complaint Chief Complaint: Ext Problem - History obtained from History obtained from: Patient - Additional information Additional information: 3 days of right worse than left ankle pain swelling and redness. No increasing shortness of breath or fevers. He is chronically short of breath. He is a diabetic. He does have a scrape on the right medial ankle from using a shoehorn to get off his compression stockings. Review of Systems Constitutional: denies: Fever, Chills Eyes: reports: Reviewed and negative Ears: reports: Reviewed and negative PD PAST MEDICAL HISTORY - Past Medical History Cardiovascular: Hypertension, High cholesterol, Coronary artery disease, [place] Respiratory: Sleep apnea, CPAP use, Other Endocrine/Autoimmune: Type 2 diabetes GI: GERD : Benign prostate hypertrophy HEENT: Glaucoma Psych: Depression Musculoskeletal: Chronic back pain Derm: Other - Past Surgical History Past Surgical History: Yes General: Cholecystectomy, Appendectomy, Colonoscopy - Present Medications Home Medications: Ambulatory Orders Medication Instructions Recorded Confirmed Fluticasone/Salmeterol [Advair 250 mcg INH BID 02/01/14 10/30/20 250-50 Diskus] Furosemide [Lasix] 40 mg PO DAILY PRN 02/01/14 10/30/20 Insulin Regular, Human [Humulin R] 16 unit SQ DAILY PM 02/01/14 10/30/20 Insulin Regular, Human [Humulin R] 26 unit SQ QDBREAKFAST 02/01/14 10/30/20 Ipratropium/Albuterol [Combivent 4 gm IH QID PRN 02/01/14 10/30/20 Respimat] Lisinopril 10 mg PO DAILY 02/01/14 10/30/20 Metformin HCl [Glucophage Xr] 1,000 mg PO QPM 02/01/14 10/30/20 Metoprolol Tartrate 100 mg PO DAILY 02/01/14 10/30/20 Terazosin [Hytrin] 10 mg PO DAILY 02/01/14 10/30/20 Empagliflozin/Metformin HCl 1,000 mg PO BID 12/22/16 10/30/20 [Synjardy 5-1,000 mg Tablet] Ibuprofen [Motrin] 800 mg PO DAILY 12/22/16 10/30/20 Rosuvastatin Calcium [Crestor] 20 mg PO DAILY 12/22/16 10/30/20 Aspirin [Kinney Aspirin] 1 tab DAILY 10/30/20 10/30/20 Rivaroxaban [Xarelto] 20 mg PO DAILY 10/30/20 10/30/20 Sulfamethox/Trimeth 800/160 1 each PO BID #14 tablet 10/30/20 [Bactrim Ds 800/160] Syringe,Insul U-500,Ndl,0.5ML 60 units QPM 10/30/20 10/30/20 [Insulin Syringe U-500] Syringe,Insul U-500,Ndl,0.5ML 130 units DAILY 10/30/20 10/30/20 [Insulin Syringe U-500] cephALEXin [Keflex] 500 mg PO Q6H #28 cap 09/06/22 - Allergies Allergies/Adverse Reactions: Allergies Allergy/AdvReac Type Severity Reaction Status Date / Time prednisone AdvReac Rash Verified 09/06/22 12:40 - Social History Does the pt smoke?: Yes Smoking Status: Current every day smoker Does the pt drink ETOH?: Yes Does the pt have substance abuse?: No - Immunizations Immunizations are current?: Yes - POLST Patient has POLST: No PD ED PE NORMAL - Vitals Vital signs reviewed: Yes - General General: Alert and oriented X 3, No acute distress - Extremities Extremities: Other (He has venous stasis changes with good perfusion in both feet. There is some cellulitis surrounding a abrasion on the right medial ankle.) - Neuro Neuro: Alert and oriented X 3, Normal speech Results - Vitals Vitals: Vital Signs - 24 hr 09/06/22 12:40 Temperature 36.4 C L Heart Rate 77 Respiratory 18 Rate Blood Pressure 146/61 H O2 Saturation 95 Oxygen O2 Source Room air PD Medical Decision Making - ED course ED course: 72-year-old gentleman with cellulitis superimposed on probably some venous stasis changes. Follow-up and return precautions discussed. Departure - Departure Disposition: 01 Home, Self Care Clinical Impression: Cellulitis Qualifiers: Site of cellulitis: extremity Site of cellulitis of extremity: lower extremity Laterality: unspecified laterality Qualified Code(s): L03.119 - Cellulitis of unspecified part of limb Condition: Good Record reviewed to determine appropriate education?: Yes Instructions: ED Infec Skin Cellulitis Prescriptions: cephALEXin [Keflex] 500 mg PO Q6H #28 cap Comments: Follow-up with your primary care physician in about 3 days for recheck, return for new or worsening symptoms. Part of the issue may be venous stasis, your primary care physician may want to start treatment for that as well.
--- OUTSIDE RECORDS SUMMARY | 2022-09-06 12:59 | EXTERNAL MEDICAL SUMMARY RPT | Continuity of Care Document ---
:1950 Author Organization [facility] Address [address] [place] [address] Phone Allergies No information. Encounters No information. Functional Status No information. Immunizations No information. Medications No information. Problems date description facility 2022-07-10 11:21 Iron deficiency anemia, unspecified Is [facility] 2022-07-10 11:56 Iron deficiency anemia, unspecified Is [facility] Procedures No information. Results/Labs test date author facility value unit interpret ation Result panel 1 (unknown) (no (unknown) (unknown) (no value) (units (unk nown) date) unknown) (unknown) (no (unknown) (unknown) [id number] (units (unkn own) date) unknown) (unknown) (no (unknown) (unknown) 1. Markedly (units (un known) date) redundant colon unknown) with large fecal load. (unknown) (no (unknown) (unknown) 07/10/22 (units (unkno wn) date) unknown) (unknown) (no (unknown) (unknown) 11:11. (units (unkno wn) date) unknown) (unknown) (no (unknown) (unknown) [address] [place] [address] (units (unknown) date) unknown) (unknown) (no (unknown) (unknown) 2. Question (units (un known) date) cirrhotic change unknown) in the liver. This is not definite. (unknown) (no (unknown) (unknown) 3. No evidence of (units (unknown) date) metastatic disease unknown) in the abdomen and pelvis. (unknown) (no (unknown) (unknown) 4. No evidence of (units (unknown) date) acute abdominal unknown) process. (unknown) (no (unknown) (unknown) ABDOMEN: (units (unkno wn) date) unknown) (unknown) (no (unknown) (unknown) Abdominal Nodes: (units (unknown) date) No retroperitoneal unknown) or mesenteric adenopathy by size criteria. (unknown) (no (unknown) (unknown) Accession Number: (units (unknown) date) [id number] unknown) (unknown) (no (unknown) (unknown) Adrenal Glands: (units (unknown) date) Unremarkable. unknown) (unknown) (no (unknown) (unknown) After the (units (unkn own) date) administration of unknown) intravenous contrast, axial sections acquired from (unknown) (no (unknown) (unknown) Age/Sex: 71 / M (units (unknown) date) Date of Service: unknown) (unknown) (no (unknown) (unknown) [place], [place] (units ( unknown) date) [id number] unknown) (unknown) (no (unknown) (unknown) Approved by: (units (u nknown) date) sal Morales) Shaheen on 07/10/2022 at 18:26 (unknown) (no (unknown) (unknown) Biliary ducts: (units (unknown) date) Unremarkable. unknown) (unknown) (no (unknown) (unknown) Bladder: (units (unkno wn) date) Unremarkable. unknown) (unknown) (no (unknown) (unknown) Bones: Lumbar (units ( unknown) date) degenerative unknown) change. No lytic or blastic bony lesions. No (unknown) (no (unknown) (unknown) COMPARISON: (units (un known) date) [facility], unknown) CT, ABDOMEN/PELVIS WITH CONTRAST, 06/16/2017, (unknown) (no (unknown) (unknown) CT Scan Report (units (unknown) date) unknown) (unknown) (no (unknown) (unknown) : 1950 (units (unknown) date) Acct:[id number] unknown) (unknown) (no (unknown) (unknown) Dictated by: (units (u nknown) date) triston Morales M.D. on 07/10/2022 at 18:21 (unknown) (no (unknown) (unknown) FINDINGS: (units (unkn own) date) unknown) (unknown) (no (unknown) (unknown) For (units (unkno wn) date) unknown) (unknown) (no (unknown) (unknown) Gallbladder: (units (u nknown) date) Surgically absent unknown) (unknown) (no (unknown) (unknown) Heart: Pacemaker. (units (unknown) date) unknown) (unknown) (no (unknown) (unknown) IMPRESSION: (units (un known) date) unknown) (unknown) (no (unknown) (unknown) INDICATIONS: Iron (units (unknown) date) deficiency anemia, unknown) unspecified (unknown) (no (unknown) (unknown) Image quality: (units (unknown) date) Excellent. unknown) (unknown) (no (unknown) (unknown) [facility] (units (unknown) date) unknown) (unknown) (no (unknown) (unknown) Kidneys and (units (un known) date) ureters: Multiple unknown) renal cysts. No masses. No hydronephrosis. (unknown) (no (unknown) (unknown) Liver: (units (unkno wn) date) Hypertrophied left unknown) lobe in relatively small right lobe. Possible (unknown) (no (unknown) (unknown) Loc: CT (units (unkno wn) date) unknown) (unknown) (no (unknown) (unknown) Lung bases: (units (un known) date) Unremarkable. unknown) (unknown) (no (unknown) (unknown) Miscellaneous: (units (unknown) date) Bilateral fat unknown) containing inguinal hernias. (unknown) (no (unknown) (unknown) Ordering (units (unkno wn) date) Provider: unknown) Marion Hatfield D.O. (unknown) (no (unknown) (unknown) PELVIS: (units (unkno wn) date) unknown) (unknown) (no (unknown) (unknown) PROCEDURE: CT (units ( unknown) date) ABDOMEN PELVIS W unknown) CON (unknown) (no (unknown) (unknown) Pancreas: (units (unkn own) date) Unremarkable. unknown) (unknown) (no (unknown) (unknown) Patient: (units (unkno wn) date) Aristides Carlsonyl F unknown) MR#: [id number] (unknown) (no (unknown) (unknown) Pelvic Nodes: No (units (unknown) date) enlarged lymph unknown) nodes. (unknown) (no (unknown) (unknown) Pelvic Organs: (units (unknown) date) Unremarkable. unknown) (unknown) (no (unknown) (unknown) Peritoneum: No (units (unknown) date) abnormal unknown) intraperitoneal fluid. No free air. (unknown) (no (unknown) (unknown) Procedure: CT (units ( unknown) date) abdomen pelvis w unknown) con (unknown) (no (unknown) (unknown) Signed (units (unkno wn) date) unknown) (unknown) (no (unknown) (unknown) Spleen: (units (unkno wn) date) Unremarkable. unknown) (unknown) (no (unknown) (unknown) Stomach and (units (un known) date) Bowel: Markedly unknown) redundant colon. Large fecal load. No abnormal (unknown) (no (unknown) (unknown) TECHNIQUE: (units (unk nown) date) unknown) (unknown) (no (unknown) (unknown) Ventral Wall: No (units (unknown) date) hernias. unknown) (unknown) (no (unknown) (unknown) Vessels: Aorta (units (unknown) date) and inferior vena unknown) cava are normal in size. (unknown) (no (unknown) (unknown) adjustment (units (unk nown) date) unknown) (unknown) (no (unknown) (unknown) bases to the (units (u nknown) date) pubic symphysis. unknown) Coronal and sagittal reformats were performed. (unknown) (no (unknown) (unknown) change. This is (units (unknown) date) not definite.. unknown) (unknown) (no (unknown) (unknown) cirrhotic (units (unkn own) date) unknown) (unknown) (no (unknown) (unknown) compression (units (un known) date) unknown) (unknown) (no (unknown) (unknown) fractures. (units (unk nown) date) unknown) (unknown) (no (unknown) (unknown) identified. (units (un known) date) unknown) (unknown) (no (unknown) (unknown) loops (units (unkno wn) date) unknown) (unknown) (no (unknown) (unknown) of mA and/or kV (units (unknown) date) according to unknown) patient size. (unknown) (no (unknown) (unknown) radiation dose (units (unknown) date) reduction, the unknown) following was used: automated exposure control, (unknown) (no (unknown) (unknown) the lung (units (unkno wn) date) unknown) Result panel 2 (unknown) (no date) (unknown) (unknown) > 60 ml/min (unkn own) (unknown) (no date) (unknown) (unknown) > 60 ml/min (unkn own) (unknown) (no date) (unknown) (unknown) 1.04 mg/dl (unkn own) (unknown) (no date) (unknown) (unknown) 23.1 (units unknown) (unknown) (unknown) (no date) (unknown) (unknown) 24 mg/dl (unkn own) Social History No information. Vital Signs No information.
== END 2022-09-06 12:57 | disposition home or self-care (01) ==
LOC: ED 12:36
DX: L03.115 Cellulitis of right lower limb (principal); I10 Essential (primary) hypertension; E11.9 Type 2 diabetes mellitus without complications; Z79.4 Long term (current) use of insulin; F17.200 Nicotine dependence, unspecified, uncomplicated
CPT/HCPCS: 99282; 99283; A9270

== ENCOUNTER 2022-09-12 08:32 | Emergency (ER) | payer MEDICARE, OTHER ==
[2022-09-12 09:04] VITALS: BP 142/67
--- OUTSIDE RECORDS SUMMARY | 2022-09-12 09:18 | EXTERNAL MEDICAL SUMMARY RPT | Continuity of Care Document ---
:1950 Author Organization [facility] Address [address] [place] [address] Phone Allergies No information. Encounters No information. Functional Status No information. Immunizations No information. Medications No information. Problems date description facility 2022-07-10 11:21 Iron deficiency anemia, unspecified Is [facility] 2022-07-10 11:56 Iron deficiency anemia, unspecified Is [facility] Procedures No information. Results/Labs test date author facility value unit interpret ation Result panel 1 (unknown) (no (unknown) (unknown) (no value) (units (unk nown) date) unknown) (unknown) (no (unknown) (unknown) [id number] (units (unkn own) date) unknown) (unknown) (no (unknown) (unknown) 1. Markedly (units (un known) date) redundant colon unknown) with large fecal load. (unknown) (no (unknown) (unknown) 07/10/22 (units (unkno wn) date) unknown) (unknown) (no (unknown) (unknown) 11:11. (units (unkno wn) date) unknown) (unknown) (no (unknown) (unknown) [address] [place] [address] (units (unknown) date) unknown) (unknown) (no (unknown) [...] (unknown) (unknown) Accession Number: (units (unknown) date) [id number] unknown) (unknown) (no (unknown) (unknown) Adrenal Glands: (units (unknown) date) Unremarkable. unknown) (unknown) (no (unknown) (unknown) After the (units (unkn own) date) administration of unknown) intravenous contrast, axial sections acquired from (unknown) (no (unknown) (unknown) Age/Sex: 71 / M (units (unknown) date) Date of Service: unknown) (unknown) (no (unknown) (unknown) [place], [place] (units ( unknown) date) [id number] unknown) (unknown) (no (unknown) (unknown) Approved by: [...] (unknown) (unknown) COMPARISON: (units (un known) date) [facility], unknown) CT, ABDOMEN/PELVIS WITH CONTRAST, 06/16/2017, (unknown) (no (unknown) (unknown) CT Scan Report (units (unknown) date) unknown) (unknown) (no (unknown) (unknown) : 1950 (units (unknown) date) Acct:[id number] unknown) (unknown) (no (unknown) (unknown) Dictated by: [...] date) Excellent. unknown) (unknown) (no (unknown) (unknown) [facility] (units (unknown) date) unknown) (unknown) (no (unknown) [...]
--- NOTE | 2022-09-12 10:23 | ED Physician Documentation ---
History of Present Illness - Stated complaint Stated Complaint: B ANKLE PX - Chief complaint Chief Complaint: Ext Problem - History obtained from History obtained from: Patient - Additonal information Additional information: Patient is a 72-year-old with a history of diabetes and lower extremity swelling presenting for evaluation of redness and swelling to bilateral lower extremities. He was seen 1 week ago for this and started on Keflex. He reports that his redness has not improved and feels that it is slightly increased in area on the left leg. He is not able to get into his PCP until next week. He does have a wound to the right ankle from it using a shoehorn to get compression stockings on. He has not been using compression stockings since This redness has started.He denies chest pain. Reports chronic shortness of breath which is unchanged.Denies fevers. Review of Systems Constitutional: denies: Fever Cardiac: denies: Chest pain / pressure Respiratory: denies: Cough GI: denies: Abdominal Pain Skin: reports: Rash Musculoskeletal: reports: Extremity swelling Neurologic: denies: Headache PD PAST MEDICAL HISTORY - Past Medical History Cardiovascular: Hypertension, High cholesterol, Coronary artery disease, [place] Respiratory: Sleep apnea, CPAP use, Other Endocrine/Autoimmune: Type 2 diabetes GI: GERD : Benign prostate hypertrophy HEENT: Glaucoma Psych: Depression Musculoskeletal: Chronic back pain Derm: Other - Past Surgical History Past Surgical History: Yes General: Cholecystectomy, Appendectomy, Colonoscopy - Present Medications Home Medications: Ambulatory Orders Medication Instructions Recorded Confirmed Fluticasone/Salmeterol [Advair 250 mcg INH BID 02/01/14 10/30/20 250-50 Diskus] Furosemide [Lasix] 40 mg PO DAILY PRN 02/01/14 10/30/20 Insulin Regular, Human [Humulin R] 16 unit SQ DAILY PM 02/01/14 10/30/20 Insulin Regular, Human [Humulin R] 26 unit SQ QDBREAKFAST 02/01/14 10/30/20 Ipratropium/Albuterol [Combivent 4 gm IH QID PRN 02/01/14 10/30/20 Respimat] Lisinopril 10 mg PO DAILY 02/01/14 10/30/20 Metformin HCl [Glucophage Xr] 1,000 mg PO QPM 02/01/14 10/30/20 Metoprolol Tartrate 100 mg PO DAILY 02/01/14 10/30/20 Terazosin [Hytrin] 10 mg PO DAILY 02/01/14 10/30/20 Empagliflozin/Metformin HCl 1,000 mg PO BID 12/22/16 10/30/20 [Synjardy 5-1,000 mg Tablet] Ibuprofen [Motrin] 800 mg PO DAILY 12/22/16 10/30/20 Rosuvastatin Calcium [Crestor] 20 mg PO DAILY 12/22/16 10/30/20 Aspirin [[place] Aspirin] 1 tab DAILY 10/30/20 10/30/20 Rivaroxaban [Xarelto] 20 mg PO DAILY 10/30/20 10/30/20 Sulfamethox/Trimeth 800/160 1 each PO BID #14 tablet 10/30/20 [Bactrim Ds 800/160] Syringe,Insul U-500,Ndl,0.5ML 60 units QPM 10/30/20 10/30/20 [Insulin Syringe U-500] Syringe,Insul U-500,Ndl,0.5ML 130 units DAILY 10/30/20 10/30/20 [Insulin Syringe U-500] cephALEXin [Keflex] 500 mg PO Q6H #28 cap 09/06/22 Doxycycline Hyclate 100 mg PO BID #14 tab 09/12/22 - Allergies Allergies/Adverse Reactions: Allergies Allergy/AdvReac Type Severity Reaction Status Date / Time prednisone AdvReac Rash Verified 09/12/22 09:04 - Social History Does the pt smoke?: Yes Smoking Status: Current every day smoker Does the pt drink ETOH?: Yes Does the pt have substance abuse?: No - Immunizations Immunizations are current?: Yes - POLST Patient has POLST: No PD ED PE NORMAL - General General: Alert and oriented X 3, No acute distress, Well developed/nourished - HEENT HEENT: Atraumatic - Cardiac Cardiac: RRR - Respiratory Respiratory: No respiratory distress, Clear bilaterally - Derm Derm: Other (Venous stasis changes to bilateral lower extremities, Superficial wound to right medial ankle, mild surrounding erythema, there is also a patch of erythema to left anterior ankle,Able to plantar and dorsiflex at bilateral ankles.) - Extremities Extremities: No calf tenderness / cord, Other (Mild bilateral lower extremity pitting edema, distal pulses intact,) Results - Vitals Vitals: Vital Signs - 24 hr 09/12/22 09:00 Temperature 36 C L Heart Rate 77 Respiratory 16 Rate Blood Pressure 142/67 H O2 Saturation 96 Oxygen O2 Source Room air PD Medical Decision Making - ED course ED course: 72-year-old male with exam findings consistent with venous stasis changes and areas of cellulitis. I was able to express a small amount of serous fluid from right medial ankle wound, no signs of abscess. I sent the fluid off for culture. I will start the patient on doxycycline. Patient counseled on concerning symptoms to return for. Departure - Departure Disposition: Home, Self Care Clinical Impression: Bilateral lower leg cellulitis Condition: Stable Instructions: ED Infec Skin Cellulitis Prescriptions: Doxycycline Hyclate 100 mg PO BID #14 tab Comments: Your cellulitis has not significantly changed since last week so I will start you on a new antibiotic called doxycycline. I have Printed this prescription and given it to you per your request. Please start this today. I also taken a wound culture which may help us determine what antibiotic may be most helpful for you. I would keep your follow-up with your primary care provider. If you have any worsening symptoms such as fevers please return to the emergency department. Please also try and keep your legs elevated to help with any swelling. Discharge Date/Time: 09/12/22 10:34
== END 2022-09-12 10:34 | disposition home or self-care (01) ==
LOC: ED 08:32
DX: L03.116 Cellulitis of left lower limb (principal); L03.115 Cellulitis of right lower limb; F17.200 Nicotine dependence, unspecified, uncomplicated
CPT/HCPCS: 87070; 87205; 99283; 99284

== ENCOUNTER 2022-09-29 14:31 | Outpatient (CLI) | payer MEDICARE, OTHER ==
[2022-09-29 10:33] VITALS: BP 132/64
--- NOTE | 2022-09-29 10:33 | SLEEP CARE CONSULTATION ---
Information from patient questionnaire entered by Ирина Carbajal. I have reviewed and concur with the information entered by Ирина Carbajal. This document represents the service I personally performed and the decisions made by me, Evette Cutler ARNP. History of Present Illness Service Date and Time: 09/29/2022 1000 Previous diagnosis: Very Severe, Obstructive Sleep Apnea-Hypopnea Syndrome AHI: 81.3 (in 2011) Reason for follow up: first compliance after device update (SET UP 08/20/22) Equipment type: BiPAP (RESMED Aircurve 10 V/auto s/u 07/2022) Equipment obtained from: [facility] (getting supplies as needed) Mask style: Full face ([employer]life) Mask brand: Respironics Backup mask available: Yes (old mask) Last cushion change: 1.5 ago Prior sleep studies: Yes Year and Where: 2011 - [facility] Type of Sleep Study: Polysomnography HPI additional information: RUDY BENSON was diagnosed to have very severe, AHI 81.3, obstructive sleep apnea-hypopnea syndrome and returns via video telehealth visit today for BIPAP therapy first compliance after updating device follow-up. Sleep Study - Results Type of Sleep Study: Polysomnography Prior sleep studies: Yes Year and Where: 2011 - [facility] CPAP Compliance Data - Data Reviewed with Patient Average duration of nightly device use: 8 HRS 58 MIN Compliance rate %: 97 (08/29/22-09/27/22; 30/30 days used) Current pressure setting (cmH2O): Average residual AHI: 1.0 Central apnea: 0.0 Obstructive apnea: 0.1 Average large leak: 27.6 l/min Subjective Patient concerns: reports: mask leak noise, dry mouth, nose, throat (oral venting, not too bad; turned humidity up). denies: aerophagia, mask discomfort, air blowing in eyes, condensation in mask/hose, nasal congestion, epistaxis Observed to snore while using device: No Current pressure setting perceived as: comfortable On therapy, patient: reports: sleeping better, awakening more refreshed, being more awake and alert during the day, more rested overall. denies: drowsiness while driving Initial [place] Sleepiness Scale score: 14 (in 2011) Current [place] Sleepiness Scale score: 3 (09/29/22) Allergies and Home Medications Drug allergies reviewed: Yes (prednisone) Home medication list reviewed: Yes (Xarelto 2 mg) Review of Systems Review of systems same as previous: Yes (no changes) Physical Exam Vital signs obtained and entered by: VIA PHONE ИРИНА Brunson MA Blood Pressure: 132/64 (PER PT) Height: 5 ft 8 in (PER PT) Weight: 265 lb (PER T) Body Mass Index: 40.3 BMI Classification: Morbidly Obese Impression and Plan 1. Obstructive Sleep Apnea-Hypopnea Syndrome, very severe, with good treatment compliance and good apnea control. On BIPAP therapy, the patient has better sleep quality and is more rested overall. Patient has significant improvement of their sleep apnea and are satisfied with current CPAP therapy.Patient is happy with new BiPAP. He has no significant issues today. Patient's apnea severity and rationale for treatment to reduce apnea, improve sleep quality and reduce cardiovascular and cerebrovascular events was reviewed. I also reviewed the benefit of consistent device use of BIPAP for hypertension and cardiac disease. 2. Obesity, unspecified. Currently patients BMI is 40.3. Obesity increases the risk of apnea, BIPAP pressure requirements and overall health risks especially cardiovascular and diabetes. Thus patient is advised to lose weight. * Continue BIPAP pressure at 23/19 cmH2O * Notify me if snoring with mask or feeling that the pressure is too much or too little * Attempt to lose weight * Call this office if any problems using BIPAP * Return for follow up in 1 year, or sooner if concerns arise Counseling Topics: Spare mask, Weight loss health impact Visit Type: Telehealth Video Video Type: [facility] Patient Location: Home Location of Provider: Office Patient agrees and consents to this telehealth visit type: Yes Patient agrees to have their insurance billed: Yes Time Spent with Patient (minutes): 12 Provider Statement: I spent 100% of the Telehealth Video Call with the patient with greater than 50% spent counseling the patient and coordination of care.
== END 2022-09-29 14:32 | disposition home or self-care (01) ==
LOC: SC 14:31
PROVIDERS: ATTEND Nurse Practitioner Family
DX: G47.33 Obstructive sleep apnea (adult) (pediatric) (principal); E66.01 Morbid (severe) obesity due to excess calories; Z68.41 Body mass index [BMI] 40.0-44.9, adult

== ENCOUNTER 2023-01-04 12:24 | Outpatient (CLI) | payer MEDICARE, OTHER ==
--- NOTE | 2023-01-04 14:09 | XRAY Report ---
PROCEDURE: Hip w/Pelvis 2-3V LT INDICATIONS: Left hip pain Patient states chronic pain with loss of range of motion. TECHNIQUE: AP pelvis with lateral view(s) of the left hip(s). COMPARISON: None. FINDINGS: Bones: No fractures or dislocations. No suspicious bony lesions. Definite osteophytes and possibl e narrowing of joint space. Soft tissues: No suspicious soft tissue calcifications or masses. IMPRESSION: No acute bony abnormality. Kellgren-Ismael scale of osteoarthritis: Grade 2: mild osteoarthritis. Reviewed by: Alex Ortega on 01/04/2023 2:08 PM PDT Approved by: Alex Ortega on 01/04/2023 2:08 PM PDT Station ID: [id number]
== END 2023-01-04 12:25 | disposition home or self-care (01) ==
LOC: DI 12:24
PROVIDERS: ATTEND Student in an Organized Health Care Education/Training Program
DX: M16.11 Unilateral primary osteoarthritis, right hip (principal)

== ENCOUNTER 2023-03-30 09:22 | Emergency (ER) | payer MEDICARE, OTHER ==
--- NOTE | 2023-03-30 09:43 | ED Physician Documentation ---
History of Present Illness - Stated complaint Stated Complaint: DIZZY - Chief complaint Chief Complaint: Neuro - Additonal information Additional information: Patient is 72-year-old male with past medical significant for diabetes, atrial fibrillation on Eliquis, TAVR, pacer placement presenting to the emergency department with chief complaint dizziness. Reports 5 days ago became acutely dizzy to the point where he felt he was near to passing out. Since that time has had persistent episodes of dizziness and balance problems. Describes the dizziness as a lightheaded sensation. He denies any vertiginous sensation, chest pain, heart palpitations, shortness of breath associated with his symptoms. Denies any fever but does report recent hospitalization at [facility] for positive blood cultures. He denies any changes in medications and reports that he discontinued his prescribed Lasix 2 days ago due to his persistent dizziness. Denies any facial droop, speech difficulties, weakness, numbness or tingling lateralizing to one side of the body more than another. Review of Systems Constitutional: denies: Fever Eyes: denies: Loss of vision Ears: denies: Loss of hearing Nose: denies: Rhinorrhea / runny nose Throat: denies: Dental pain / toothache Cardiac: denies: Chest pain / pressure Respiratory: denies: Dyspnea GI: denies: Abdominal Pain : denies: Dysuria Skin: denies: Rash Musculoskeletal: denies: Neck pain Neurologic: reports: Near syncope, Other (Dizziness and balance problems.). denies: Generalized weakness, Focal weakness, Numbness, Difficulty speaking, Syncope, Seizure, Confused, Altered mental status, Unresponsive, Headache, Head injury Psychiatric: denies: Depressed Endocrine: denies: Polydypsia Immunocompromised: denies: Immunocompromised PD PAST MEDICAL HISTORY - Past Medical History Cardiovascular: Hypertension, High cholesterol, Coronary artery disease, [place] Respiratory: Sleep apnea, CPAP use, Other Endocrine/Autoimmune: Type 2 diabetes GI: GERD : Benign prostate hypertrophy HEENT: Glaucoma Psych: Depression Musculoskeletal: Chronic back pain Derm: Other - Past Surgical History Past Surgical History: Yes General: Cholecystectomy, Appendectomy, Colonoscopy - Present Medications Home Medications: Ambulatory Orders Medication Instructions Recorded Confirmed Fluticasone/Salmeterol [Advair 250 mcg INH BID 02/01/14 09/29/22 250-50 Diskus] Furosemide [Lasix] 40 mg PO DAILY PRN 02/01/14 09/29/22 Insulin Regular, Human [Humulin R] 16 unit SQ DAILY PM 02/01/14 09/29/22 Insulin Regular, Human [Humulin R] 26 unit SQ QDBREAKFAST 02/01/14 09/29/22 Ipratropium/Albuterol [Combivent 4 gm IH QID PRN 02/01/14 09/29/22 Respimat] Lisinopril 10 mg PO DAILY 02/01/14 09/29/22 Metformin HCl [Glucophage Xr] 1,000 mg PO QPM 02/01/14 09/29/22 Metoprolol Tartrate 100 mg PO DAILY 02/01/14 09/29/22 Terazosin [Hytrin] 10 mg PO DAILY 02/01/14 09/29/22 Empagliflozin/Metformin HCl 1,000 mg PO BID 12/22/16 09/29/22 [Synjardy 5-1,000 mg Tablet] Ibuprofen [Motrin] 800 mg PO DAILY 12/22/16 09/29/22 Rosuvastatin Calcium [Crestor] 20 mg PO DAILY 12/22/16 09/29/22 Aspirin [[place] Aspirin] 1 tab DAILY 10/30/20 09/29/22 Rivaroxaban [Xarelto] 20 mg PO DAILY 10/30/20 09/29/22 Sulfamethox/Trimeth 800/160 1 each PO BID #14 tablet 10/30/20 09/29/22 [Bactrim Ds 800/160] Syringe,Insul U-500,Ndl,0.5ML 60 units QPM 10/30/20 09/29/22 [Insulin Syringe U-500] Syringe,Insul U-500,Ndl,0.5ML 130 units DAILY 10/30/20 09/29/22 [Insulin Syringe U-500] cephALEXin [Keflex] 500 mg PO Q6H #28 cap 09/06/22 09/29/22 Doxycycline Hyclate 100 mg PO BID #14 tab 09/12/22 09/29/22 Rivaroxaban [Xarelto] See Rx Instructions .ROUTE .COMPLEX 09/29/22 09/29/22 - Allergies Allergies/Adverse Reactions: Allergies Allergy/AdvReac Type Severity Reaction Status Date / Time prednisone AdvReac Rash Verified 03/30/23 09:32 - Social History Does the pt smoke?: Yes Smoking Status: Current every day smoker Does the pt drink ETOH?: Yes Does the pt have substance abuse?: No - Immunizations Immunizations are current?: Yes - POLST Patient has POLST: No PD ED PE NORMAL - Vitals Vital signs reviewed: Yes - General General: Alert and oriented X 3, No acute distress, Well developed/nourished - HEENT HEENT: Atraumatic, PERRL, EOMI, Ears normal, Moist mucous membranes, Pharynx benign - Neck Neck: Supple, no meningeal sign, No bony TTP, No adenopathy, Thyroid normal, No JVD - Cardiac Cardiac: RRR, No murmur, No gallop, No rub, Strong equal pulses - Abdomen Abdomen: Normal bowel sounds - Male Male : Deferred - Rectal Rectal: Deferred - Back Back: No CVA TTP - Derm Derm: Normal color - Extremities Extremities: No deformity - Neuro Neuro: Alert and oriented X 3, solar tech 2-12 intact, No motor deficit, No sensory deficit, Normal speech, Other (Patient subjectively dizzy with standing.) Results - Vitals Vitals: Vital Signs - 24 hr 03/30/23 03/30/23 03/30/23 09:28 11:32 12:04 Temperature 36.7 C Heart Rate 70 70 Heart Rate [ 70 Sitting] Heart Rate [ 70 Standing] Heart Rate [ 70 Supine] Respiratory 14 21 Rate Blood Pressure 124/59 L 118/58 L Blood Pressure 118/55 L [Sitting] Blood Pressure 119/50 L [Standing] Blood Pressure 114/62 [Supine] O2 Saturation 98 100 03/30/23 03/30/23 13:32 16:35 Temperature Heart Rate 70 75 Heart Rate [ Sitting] Heart Rate [ Standing] Heart Rate [ Supine] Respiratory 15 16 Rate Blood Pressure 143/67 H 140/65 H Blood Pressure [Sitting] Blood Pressure [Standing] Blood Pressure [Supine] O2 Saturation 100 98 Oxygen O2 Source Room air - EKG (time done) 0970 EKG releavant findings:: EKG personally interpreted by author of this note. Relevant findings are: Paced rhythm with rate 70 bpm. Left axis deviation. Left bundle branch block morphology. No concordant ST segment elevations, concordant ST segment depressions or excessive discordance in any lead. No previous EKG available for comparison. - Labs Labs: Laboratory Tests 03/30/23 03/30/23 03/30/23 10:15 10:15 10:15 WBC 11.5 H RBC 4.57 L Hgb 9.9 L Hct 34.0 L MCV 74.4 L MCH 21.7 L MCHC 29.1 L RDW 18.1 H Plt Count 241 MPV 9.1 Neut # (Auto) 9.7 H Lymph # (Auto) 1.1 L [place] # (Auto) 0.5 Eos # (Auto) 0.1 Baso # (Auto) 0.1 Absolute Nucleated RBC 0.00 Nucleated RBC % 0.0 PT 18.3 H INR 1.7 H Sodium 137 Potassium 3.8 Chloride 105 Carbon Dioxide 28 Anion Gap 4.0 L BUN 12 Creatinine 0.8 Estimated GFR (MDRD) 94 Glucose 86 Calcium 9.6 Magnesium 1.7 Total Bilirubin 0.5 AST 26 ALT 33 Alkaline Phosphatase 129 H Total Creatine Kinase 26 L Total Protein 6.9 Albumin 3.9 Globulin 3.0 Albumin/Globulin Ratio 1.3 Lipase 16 Urine Color Urine Clarity Urine pH Ur Specific [place] Urine Protein Urine Glucose (UA) Urine Ketones Urine Occult Blood Urine Nitrite Urine Bilirubin Urine Urobilinogen Ur Leukocyte Esterase Ur Microscopic Review Urine Culture Comments Urine Opiates Screen Ur Oxycodone Screen Urine Methadone Screen Ur Propoxyphene Screen Ur Barbiturates Screen Ur Tricyclics Screen Ur Phencyclidine Scrn Ur Amphetamine Screen U Methamphetamines Scrn U Benzodiazepines Scrn Urine Cocaine Screen U Cannabinoids Screen Ethyl Alcohol < 10.0 03/30/23 11:10 WBC RBC Hgb Hct MCV MCH MCHC RDW Plt Count MPV Neut # (Auto) Lymph # (Auto) [place] # (Auto) Eos # (Auto) Baso # (Auto) Absolute Nucleated RBC Nucleated RBC % PT INR Sodium Potassium Chloride Carbon Dioxide Anion Gap BUN Creatinine Estimated GFR (MDRD) Glucose Calcium Magnesium Total Bilirubin AST ALT Alkaline Phosphatase Total Creatine Kinase Total Protein Albumin Globulin Albumin/Globulin Ratio Lipase Urine Color YELLOW Urine Clarity CLEAR Urine pH 6.0 Ur Specific [place] <=1.005 Urine Protein NEGATIVE Urine Glucose (UA) >=1000 H Urine Ketones NEGATIVE Urine Occult Blood NEGATIVE Urine Nitrite NEGATIVE Urine Bilirubin NEGATIVE Urine Urobilinogen 0.2 (NORMAL) Ur Leukocyte Esterase NEGATIVE Ur Microscopic Review NOT INDICATED Urine Culture Comments NOT INDICATED Urine Opiates Screen NEGATIVE Ur Oxycodone Screen NEGATIVE Urine Methadone Screen NEGATIVE Ur Propoxyphene Screen NEGATIVE Ur Barbiturates Screen NEGATIVE Ur Tricyclics Screen NEGATIVE Ur Phencyclidine Scrn NEGATIVE Ur Amphetamine Screen NEGATIVE U Methamphetamines Scrn NEGATIVE U Benzodiazepines Scrn NEGATIVE Urine Cocaine Screen NEGATIVE U Cannabinoids Screen NEGATIVE Ethyl Alcohol PD Medical Decision Making - ED course Complexity details: reviewed old records, reviewed results, re-evaluated patient, considered differential, d/w patient, d/w family, d/w property consultant ED course: Patient 72-year-old male presenting to the emergency department with 5-day history of dizziness. Afebrile, hemodynamically stable on arrival to the emergency department. Known history TAVR, pacer placement in 2019, recent hospitalization at [facility] for bacteremia of uncertain etiology. On arrival to the emergency department he demonstrates some subjective difficulties with dizziness but no other focal or lateralizing neurologic deficits. EKG shows paced rhythm. Labs generally within normal limits or nonactionable. He does have a mild anemia with hemoglobin 9.9 down from 13 from greater than 10 years ago. No history of melanotic or bloody stools or other indications of acute GI blood loss. CT head and CTA are performed. 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 Pacer was interrogated here in the emergency departmentWith infrequent episodes of nonsustained ventricular tachycardia noted. Consulted with the hospitalist service who graciously evaluated the patient's medical record and pointed out the pertinent CT findings and reviewed his pacer results. Recommendation was for transfer to a facility where he would be able to receive MRI compatible with his pacer. All results were discussed directly with the patient. He reported that he was not interested in hospital stay at this time. We discussed the risks and benefits of this including the risk for recurrent stroke, ventricular tachycardia or other life-threatening cardiac dysrhythmia, permanent disability and . He verbalized understanding of these things. He did elect to leave the emergency department AGAINST MEDICAL ADVICE. He was strongly encouraged to return or follow-up with his primary care doctor at the soonest opportunity. Departure - Departure Disposition: 07 Against Medical Advice Clinical Impression: Dizziness, Cerebellar infarct, Nonsustained ventricular tachycardia Comments: Thank you for allowing us the opportunity to care for you today at [facility]. You have decided to leave the emergency department AGAINST MEDICAL ADVICE. In the emergency department today you were diagnosed as having findings consistent with a old cerebellar infarct or cerebellar stroke which could explain the dizziness that you been having. Your pacemaker interrogation also showed nonsustained episodes of ventricular tachycardia which is dangerous and should be followed up promptly with a medical reception. I do understand your decision to leave the emergency department and your decision will be respected by our staff however I do need you to understand that these are both life-threatening and quite dangerous medical conditions. I would like to strongly encourage you to follow-up with your primary care doctor or return to a emergency room as soon as possible. If it anytime you have new or worsening symptoms please return. You are always welcome to return to the emergency department at any time. Forms: PCP List Discharge Date/Time: 03/30/23 16:36
--- OUTSIDE RECORDS SUMMARY | 2023-03-30 10:08 | EXTERNAL MEDICAL SUMMARY RPT | Continuity of Care Document ---
Author Name Unknown Address [address] [place] [address] Phone Organization [facility] Address [address] [place] [address] Phone Problems date description facility 2023-02-25 14:55 [facility] 2023-03-04 16:49 [facility] Results/Labs test date facility value unit notes
[2023-03-30 10:25] LABS: BASOPHILS # (AUTO) 0.1 10^3/uL (0.0-0.1); BASOPHILS % (AUTO) 0.6 %; EOSINOPHILS # (AUTO) 0.1 10^3/uL (0.0-0.7); HGB - HEMOGLOBIN 9.9 g/dL (14.0-18.0); LYMPHOCYTES # (AUTO) 1.1 10^3/uL (1.5-3.5); LYMPHOCYTES % (AUTO) 9.2 %; MEAN CORPUSCULAR HEMOGLOBIN 21.7 pg (27.0-31.0); MEAN CORPUSCULAR HGB CONC 29.1 g/dL (32.0-36.0); MEAN CORPUSCULAR VOLUME 74.4 fL (80.0-94.0); MEAN PLATELET VOLUME 9.1 fL (7.4-11.4); MONOCYTES # (AUTO) 0.5 10^3/uL (0.0-1.0); MONOCYTES % (AUTO) 4.4 %; NEUTROPHILS # (AUTO) 9.7 10^3/uL (1.5-6.6); NEUTROPHILS % (AUTO) 84.5 %; PLT - PLATELET COUNT 241 10^3/uL (130-450); RED BLOOD COUNT 4.57 10^6/uL (4.70-6.10); RED CELL DISTRIBUTION WIDTH 18.1 % (12.0-15.0); WHITE BLOOD COUNT 11.5 x10^3/uL (4.8-10.8)
[2023-03-30 10:32] LABS: INR 1.7 (0.8-1.2); PT - PROTHROMBIN TIME 18.3 secs (9.9-12.6)
[2023-03-30 10:40] LABS: ALBUMIN 3.9 g/dL (3.2-5.5); ALBUMIN/GLOBULIN RATIO 1.3 (1.0-2.2); ALKALINE PHOSPHATASE 129 IU/L (42-121); ALT ALANINE AMINOTRANSFERASE 33 IU/L (10-60); AST ASPARTATE AMINOTRANSFERASE 26 IU/L (10-42); BILIRUBIN,TOTAL 0.5 mg/dL (0.2-1.0); BUN - BLOOD UREA NITROGEN 12 mg/dL (6-20); CALCIUM 9.6 mg/dL (8.5-10.3); CARBON DIOXIDE - CO2 28 mmol/L (21-32); CHLORIDE 105 mmol/L (101-111); CK- CREATINE KINASE 26 IU/L (30-223); CREATININE 0.8 mg/dL (0.6-1.3); ETOH - ETHANOL < 10.0 mg/dL; GFR - MDRD 94 (>89); GLUCOSE 86 mg/dL (74-104); LIPASE 16 U/L (11-82); MAGNESIUM 1.7 mg/dL (1.7-2.3); POTASSIUM 3.8 mmol/L (3.5-4.5); SODIUM 137 mmol/L (135-145); TOTAL PROTEIN 6.9 g/dL (6.4-8.9)
[2023-03-30 11:18] LABS: MUDS CUTOFF CONCENTRATIONS CUTOFF CONC BELOW:
[2023-03-30 11:21] LABS: BILIRUBIN,URINE NEGATIVE (NEGATIVE); GLUCOSE, URINE (UA) >=1000 mg/dL (NEGATIVE); KETONES,URINE (UA) NEGATIVE (NEGATIVE); LEUKOCYTE ESTERASE, URINE NEGATIVE (NEGATIVE); NITRITE,URINE NEGATIVE (NEGATIVE); OCCULT BLOOD,URINE NEGATIVE (NEGATIVE); PROTEIN,URINE NEGATIVE (NEGATIVE); UROBILINOGEN,URINE 0.2 (NORMAL) E.U./dL (NORMAL)
[2023-03-30 11:22] LABS: CLARITY,URINE CLEAR (CLEAR)
[2023-03-30 11:31] LABS: AMPHETAMINE SCREEN,URINE NEGATIVE (NEGATIVE); BARBITURATE SCREEN,UR NEGATIVE (NEGATIVE); BENZODIAZEPINES SCREEN, URINE NEGATIVE (NEGATIVE); COCAINE SCREEN URINE NEGATIVE (NEGATIVE); METHADONE SCREEN, URINE NEGATIVE (NEGATIVE); METHAMPHETAMINES SCREEN, URINE NEGATIVE (NEGATIVE); OPIATE SCREEN, URINE NEGATIVE (NEGATIVE); OXYCODONE SCREEN, URINE NEGATIVE (NEGATIVE); PROPOXYPHENE SCREEN, URINE NEGATIVE (NEGATIVE); THC CANNABINOID SCREEN, URINE NEGATIVE (NEGATIVE); TRICYCLIC ANTIDEPRESSANT,URINE NEGATIVE (NEGATIVE)
[2023-03-30] MEDS: iohexoL-300 100 ML VIAL IVP ONE (12:03)
--- NOTE | 2023-03-30 12:23 | CT Report ---
PROCEDURE: HEAD WO INDICATIONS: Left side facial droop TECHNIQUE: Noncontrast 4.5 mm thick angled axial sections acquired from the foramen magnum to the vertex. For r adiation dose reduction, the following was used: automated exposure control, adjustment of mA and/or kV according to patient size. COMPARISON: None. FINDINGS: Image quality: Excellent. CSF spaces: Basal cisterns are patent. No extra-axial fluid collections. Ventricles are normal in size and shape. Brain: No midline shift. No intracranial masses or hemorrhage. Nevarez-white matter interface is norm al. Age-related global volume loss. Areas of hypoattenuation within the deep and periventricular whi te matter, nonspecific and likely representing chronic microvascular ischemic change. Old right cereb ellar hemisphere small infarct. Calcification within the right frontal lobe, nonspecific. Atheroscler otic vascular calcifications. Skull and face: Calvarium and visualized facial bones are intact, without suspicious lesions. Sinuses: Scattered paranasal sinus mucosal disease. Small mucous retention cyst within the right maxi llary sinus. Small fluid within the right mastoid air cells. The left mastoid air cells are clear. IMPRESSION: No acute intracranial pathology. Reviewed by: Jeronimo Yap MD on 03/30/2023 12:22 PM PDT Approved by: Jeronimo Yap MD on 03/30/2023 12:22 PM PDT Station ID: [id number]
--- NOTE | 2023-03-30 12:37 | CT Report ---
PROCEDURE: CT Angio Head/Neck INDICATIONS: L sided facial droop TECHNIQUE: After the administration of intravenous contrast, 1 mm thick sections acquired from the aortic arch t hrough the [place]. Post-contrast 4.5 mm thick sections then re-acquired from the foramen m agnum to the vertex. 3-dimensional xdwavay-tftvuxyru-refrhhjodi (MIP) and/or volume rendering reform ats were acquired of the central intracranial vasculature and neck separately. For radiation dose re duction, the following was used: automated exposure control, adjustment of mA and/or kV according to patient size. CONTRAST: 70 cc [id number] COMPARISON: None FINDINGS: Image quality: Poor opacification of the vasculature, limiting evaluation. HEAD CT ANGIOGRAPHY: Anterior circulation: Coarse atherosclerotic vascular calcifications of the bilateral ICAs with at l east moderate stenosis distally. The flow within the paired anterior cerebral arteries is normal and symmetric. The flow within the middle cerebral arteries is normal and symmetric. The anterior commu nicating artery is seen. Posterior circulation: Visualized portions of the vertebral arteries demonstrate normal caliber, and join to form a normal appearing basilar artery. Flow within the posterior cerebral arteries is norm al and symmetric. NECK CT ANGIOGRAPHY: Carotid system: The great vessels demonstrate a conventional anatomy as they arise from the aortic a rch. Mild atherosclerotic vascular calcifications. The origins of the common carotid arteries appear patent. The common carotid arteries demonstrate normal caliber and courses. Atherosclerotic calcifie d plaques at the bilateral carotid bulbs without significant stenosis. The internal carotid arteries demonstrate normal calibers. Posterior circulation: The origins of the vertebral arteries are not well seen secondary to poor con trast opacification and streak artifact from pacemaker. The more superior extracranial portions of brynn th vertebral arteries demonstrate normal courses and calibers. They join to form a normal appearing basilar artery. Soft tissues: Visualized neck soft tissues demonstrate no suspicious abnormalities. Left chest wall pacemaker with partial versus bleeds. Bones: No suspicious bony lesions. Degenerative changes of the cervical spine. Degenerative changes of the cervical spine. Visualized cervical spine appears normally aligned. IMPRESSION: 1.Limited exam secondary to poor contrast opacification. 2.Within these limitations, no large vessel occlusion is seen. 3.Coarse calcifications within the bilateral intracranial ICAs with at least moderate stenosis of the distal ICAs bilaterally. There is normal opacification of the distal arteries. The estimate of stenosis included in the report of the imaging study was calculated using the NASCET method Reviewed by: Jeronimo Yap MD on 03/30/2023 12:36 PM PDT Approved by: Jeronimo Yap MD on 03/30/2023 12:36 PM PDT Station ID: [id number]
[2023-03-30 16:36] VITALS: BP 140/65; O2SAT 98
== END 2023-03-30 16:36 | disposition left against medical advice (07) ==
LOC: ED 09:22
DX: I63.9 Cerebral infarction, unspecified (principal); I47.20 Ventricular tachycardia, unspecified; R42 Dizziness and giddiness; I10 Essential (primary) hypertension; E78.00 Pure hypercholesterolemia, unspecified; I25.10 Atherosclerotic heart disease of native coronary artery without angina pectoris; E11.9 Type 2 diabetes mellitus without complications; I25.2 Old myocardial infarction; F17.200 Nicotine dependence, unspecified, uncomplicated; Z79.51 Long term (current) use of inhaled steroids; Z79.899 Other long term (current) drug therapy; Z79.4 Long term (current) use of insulin; Z79.84 Long term (current) use of oral hypoglycemic drugs; Z79.82 Long term (current) use of aspirin; Z79.01 Long term (current) use of anticoagulants; Z53.29 Procedure and treatment not carried out because of patient's decision for other reasons
CPT/HCPCS: 36415; 80053; 80306; 80320; 81001; 81003; 82550; 83690; 83735; 85025; 85610; 87086; 93005; 99284

== ENCOUNTER 2023-09-29 08:54 | Outpatient (CLI) | payer MEDICARE, OTHER ==
--- NOTE | 2023-09-29 09:23 | Sleep Patient Instructions ---
Sleep Center Visit Summary - Patient Visit Information Reason for Visit: Annual visit - Patient Instructions Additional Instructions: You will continue with BiPAP therapy with pressure set at 23-19 cmH2O. A supply prescription will be updated with your DME. We encourage you to continue to try to lose weight. Please follow up with the sleep care office in 1 year. - Clinic Information Contact: [facility] [address] [place] [address] [email or web address] T: [phone]
--- NOTE | 2023-09-29 09:27 | SLEEP CARE CONSULTATION ---
Information from patient questionnaire entered by Ирина Carbajal. I have reviewed and concur with the information entered by Ирина Carbajal. This document represents the service I personally performed and the decisions made by me, Evette Cutler ARNP. History of Present Illness Service Date and Time: 09/29/2023 0854 Previous diagnosis: Very Severe, Obstructive Sleep Apnea-Hypopnea Syndrome AHI: 81.3 (in 2011) Reason for follow up: annual (LAST SEEN 09/2022) Equipment type: BiPAP (RESMED Aircurve 10 V/auto s/u 07/2022) Equipment obtained from: [facility] (getting supplies as needed) Mask style: Full face ([employer]) Backup mask available: Yes Last cushion change: 1 week Prior sleep studies: Yes Year and Where: 2011 - [facility] Type of Sleep Study: Polysomnography HPI additional information: RUDY BENSON was diagnosed to have very severe, AHI 81.3, obstructive sleep apnea-hypopnea syndrome and returned today for BIPAP therapy annual follow-up. Sleep Study - Results Type of Sleep Study: Polysomnography Prior sleep studies: Yes Year and Where: 2011 - [facility] CPAP Compliance Data - Data Reviewed with Patient Average duration of nightly device use: 10 HRS 25 MINS Compliance rate %: 98 (09/27/22-09/26/23; 361/365 days used) Current pressure setting (cmH2O): Average residual AHI: 0.9 Subjective Missed days of use due to: reports: illness (in hospital) Patient concerns: reports: dry mouth, nose, throat (increased humidity, resolved), epistaxis (increased humidity, resolved). denies: aerophagia, mask discomfort, air blowing in eyes, mask leak noise, condensation in mask/hose, nasal congestion Observed to snore while using device: No Current pressure setting perceived as: comfortable On therapy, patient: reports: sleeping better, awakening more refreshed, being more awake and alert during the day, more rested overall. denies: drowsiness while driving Initial [place] Sleepiness Scale score: 14 (in 2011) Current [place] Sleepiness Scale score: 5 (09/29/23) Allergies and Home Medications Known drug allergies: Yes (as listed) Drug allergies reviewed: Yes Home medication list reviewed: Yes (Ozempic added) Allergy and home medication list: Allergies prednisone Adverse Reaction (Verified 09/27/23 09:43) Rash itching,paranoia,"dark thoughts per pt Home Medications Medication Instructions Recorded Confirmed Last Taken Type Fluticasone/Salmeterol [Advair 250 mcg INH BID 02/01/14 09/29/23 12/23/16 History 250-50 Diskus] Furosemide [Lasix] 40 mg PO DAILY PRN 02/01/14 09/29/23 12/21/16 History Insulin Regular, Human [Humulin R] 16 unit SQ DAILY PM 02/01/14 09/29/23 12/21/16 History Ipratropium/Albuterol [Combivent 4 gm IH QID PRN 02/01/14 09/29/23 12/21/16 History Respimat] Lisinopril 10 mg PO DAILY 02/01/14 09/29/23 12/23/16 History Metformin HCl [Glucophage Xr] 1,000 mg PO QPM 02/01/14 09/29/23 12/21/16 History Metoprolol Tartrate 100 mg PO DAILY 02/01/14 09/29/23 12/23/16 History Terazosin [Hytrin] 10 mg PO DAILY 02/01/14 09/29/23 12/21/16 History Empagliflozin/Metformin HCl 1,000 mg PO BID 12/22/16 09/29/23 12/21/16 History [Synjardy 5-1,000 mg Tablet] Ibuprofen [Motrin] 800 mg PO DAILY 12/22/16 09/29/23 12/20/16 History Aspirin [[place] Aspirin] 1 tab DAILY 10/30/20 09/29/23 Unknown History Sulfamethox/Trimeth 800/160 1 each PO BID #14 tablet 10/30/20 09/29/23 Unknown Rx [Bactrim Ds 800/160] Syringe,Insul U-500,Ndl,0.5ML 130 units DAILY 10/30/20 09/29/23 Unknown History [Insulin Syringe U-500] Doxycycline Hyclate 100 mg PO BID #14 tab 09/12/22 09/29/23 Unknown Rx Rivaroxaban [Xarelto] See Rx Instructions .ROUTE .COMPLEX 09/29/22 09/29/23 Unknown History Review of Systems Review of systems same as previous: No (in hosp: septicemia, CHF exacerbation, stroke) Physical Exam Vital signs obtained and entered by: ИРИНА Brunson MA Blood Pressure: 101/55 (LEFT ARM) Cuff size: regular Heart Rate: 70 O2 Saturation: 99 Height: 5 ft 8 in Weight: 232 lb 6.4 oz Weight change since last visit: 33 lbs loss Body Mass Index: 35.3 BMI Classification: Obese Impression and Plan 1. Obstructive Sleep Apnea-Hypopnea Syndrome, very severe, with good treatment compliance and good apnea control. On BIPAP therapy, the patient has better sleep quality and is more rested overall. Patient has significant improvement of their sleep apnea and is satisfied with current CPAP therapy. Patient was having some increased mouth dryness and a few bloody noses. He states he turned up his humidifier setting on the BiPAP and these resolved. Patient's apnea severity and rationale for treatment to reduce apnea, improve sleep quality and reduce cardiovascular and cerebrovascular events was reviewed. I also reviewed the benefit of consistent device use of BIPAP for hypertension, cerebrovascular disease (stroke) and cardiac disease. 2. Obesity, unspecified. Currently patients BMI is 35.3. Obesity increases the risk of apnea, BIPAP pressure requirements and overall health risks especially cardiovascular and diabetes. Thus patient is advised to continue to try to lose weight. * Continue BiPAP pressure at 23/19 cmH2O * Update supply prescription * Notify me if snoring with mask or feeling that the pressure is too much or too little * Attempt to lose weight * Call this office if any problems using BIPAP * Return for follow up in 12 months, or sooner if concerns arise Counseling Topics: Spare mask, Weight loss health impact Prescriptions: Device supplies Follow up with Sleep Care in: 1 year Visit Type: In Office Time Spent with Patient (minutes): 21 Provider Statement: I spent 100% of the Face to Face Visit with the patient with greater than 50% spent counseling the patient and coordination of care.
[2023-09-29 09:34] VITALS: BP 101/55; O2SAT 99
== END 2023-09-29 08:55 | disposition home or self-care (01) ==
LOC: SC 08:54
PROVIDERS: ATTEND Nurse Practitioner Family
DX: G47.33 Obstructive sleep apnea (adult) (pediatric) (principal); E11.9 Type 2 diabetes mellitus without complications; Z79.84 Long term (current) use of oral hypoglycemic drugs; Z79.4 Long term (current) use of insulin; E66.9 Obesity, unspecified; Z68.35 Body mass index [BMI] 35.0-35.9, adult
CPT/HCPCS: 99213; G0463; 99212

== ENCOUNTER 2023-11-30 10:25 | Outpatient (CLI) | payer MEDICARE, OTHER ==
[2023-11-30 10:38] LABS: BASOPHILS # (AUTO) 0.1 10^3/uL (0.0-0.1); BASOPHILS % (AUTO) 0.5 %; EOSINOPHILS % (AUTO) 0.4 %; HCT - HEMATOCRIT 28.6 % (42.0-52.0); HGB - HEMOGLOBIN 7.8 g/dL (14.0-18.0); LYMPHOCYTES # (AUTO) 0.8 10^3/uL (1.5-3.5); LYMPHOCYTES % (AUTO) 7.1 %; MEAN CORPUSCULAR HEMOGLOBIN 20.6 pg (27.0-31.0); MEAN CORPUSCULAR HGB CONC 27.3 g/dL (32.0-36.0); MEAN CORPUSCULAR VOLUME 75.5 fL (80.0-94.0); MONOCYTES # (AUTO) 0.7 10^3/uL (0.0-1.0); NEUTROPHILS # (AUTO) 9.6 10^3/uL (1.5-6.6); NEUTROPHILS % (AUTO) 85.6 %; PLT - PLATELET COUNT 215 10^3/uL (130-450); RED BLOOD COUNT 3.79 10^6/uL (4.70-6.10); RED CELL DISTRIBUTION WIDTH 21.2 % (12.0-15.0); WHITE BLOOD COUNT 11.3 x10^3/uL (4.8-10.8)
[2023-11-30 10:50] LABS: SLIDE REVIEW? Indicated
[2023-11-30 11:26] LABS: PLATELET ESTIMATE, MANUAL NORMAL (130-450,000) (NORMAL); PLATELET MORPHOLOGY NORMAL APPEARANCE (NORMAL)
== END 2023-11-30 10:26 | disposition home or self-care (01) ==
LOC: LAB 10:25
PROVIDERS: ATTEND Internal Medicine
DX: D62 Acute posthemorrhagic anemia (principal)
CPT/HCPCS: 36415; 85025

== ENCOUNTER 2023-12-07 13:18 | Outpatient (CLI) | payer MEDICARE, OTHER ==
[2023-12-07 13:45] LABS: BASOPHILS # (AUTO) 0.1 10^3/uL (0.0-0.1); BASOPHILS % (AUTO) 0.7 %; EOSINOPHILS # (AUTO) 0.1 10^3/uL (0.0-0.7); EOSINOPHILS % (AUTO) 1.2 %; HCT - HEMATOCRIT 29.8 % (42.0-52.0); LYMPHOCYTES # (AUTO) 1.2 10^3/uL (1.5-3.5); MEAN CORPUSCULAR HEMOGLOBIN 20.4 pg (27.0-31.0); MEAN CORPUSCULAR HGB CONC 26.8 g/dL (32.0-36.0); MEAN PLATELET VOLUME 10.3 fL (7.4-11.4); MONOCYTES # (AUTO) 0.7 10^3/uL (0.0-1.0); MONOCYTES % (AUTO) 6.4 %; NEUTROPHILS # (AUTO) 8.6 10^3/uL (1.5-6.6); NEUTROPHILS % (AUTO) 80.4 %; PLT - PLATELET COUNT 199 10^3/uL (130-450); RED BLOOD COUNT 3.92 10^6/uL (4.70-6.10); RED CELL DISTRIBUTION WIDTH 22.5 % (12.0-15.0); WHITE BLOOD COUNT 10.6 x10^3/uL (4.8-10.8)
== END 2023-12-07 13:19 | disposition home or self-care (01) ==
LOC: LAB 13:18
PROVIDERS: ATTEND Nurse Practitioner Family
DX: D50.9 Iron deficiency anemia, unspecified (principal)
CPT/HCPCS: 36415; 85025

== ENCOUNTER 2023-12-08 09:07 | Emergency (ER) | payer MEDICARE, OTHER ==
--- NOTE | 2023-12-08 10:13 | ED Physician Documentation ---
PD HPI DYSPNEA - Stated complaint Stated Complaint: SOA/FATIGUE - Chief complaint Chief Complaint: Resp - History obtained from History obtained from: Patient - History of Present Illness Timing - onset: How many days ago (has ongoing dyspnea and fatigue. Has anemia and he states several transfusions in past few months for it. He is wondering if blood count is low again to need "a unit of blood and kick me out of here", is his eval/suspicion of it.) Timing - onset during: Light activity Timing - duration: Days (increased over baseline the past few days, but is chronic underlying dyspnea.) Timing - details: Gradual onset, Still present, Waxing and waning Inciting event(s): No: URI Improved by: Rest. No: Sitting up Worsened by: Exertion. No: Laying flat Associated symptoms: Wheezing. No: Fever, Cough, Chest pain / discomfort Similar symptoms before: Diagnosis (COPD, anemia, chronic illness.) Review of Systems Constitutional: denies: Fever, Chills Nose: denies: Rhinorrhea / runny nose, Congestion Throat: denies: Sore throat Respiratory: denies: Cough GI: denies: Vomiting, Diarrhea, Bloody / black stool : denies: Dysuria PD PAST MEDICAL HISTORY - Past Medical History Past Medical History: Yes Cardiovascular: Hypertension, High cholesterol, Coronary artery disease, [place] Respiratory: Sleep apnea, CPAP use, Other Endocrine/Autoimmune: Type 2 diabetes GI: GERD : Benign prostate hypertrophy HEENT: Glaucoma Psych: Depression Musculoskeletal: Chronic back pain Derm: Other - Past Surgical History Past Surgical History: Yes General: Cholecystectomy, Appendectomy, Colonoscopy - Present Medications Home Medications: Ambulatory Orders Medication Instructions Recorded Confirmed Fluticasone/Salmeterol [Advair 250 mcg INH BID 02/01/14 12/08/23 250-50 Diskus] Furosemide [Lasix] 40 mg PO DAILY PRN 02/01/14 12/08/23 Insulin Regular, Human [Humulin R] 16 unit SQ DAILY PM 02/01/14 12/08/23 Ipratropium/Albuterol [Combivent 4 gm IH QID PRN 02/01/14 12/08/23 Respimat] Metformin HCl [Glucophage Xr] 1,000 mg PO QPM 02/01/14 12/08/23 Metoprolol Tartrate 100 mg PO DAILY 02/01/14 12/08/23 Terazosin [Hytrin] 10 mg PO DAILY 02/01/14 12/08/23 Empagliflozin/Metformin HCl 1,000 mg PO BID 12/22/16 12/08/23 [Synjardy 5-1,000 mg Tablet] Ibuprofen [Motrin] 800 mg PO DAILY 12/22/16 12/08/23 Sulfamethox/Trimeth 800/160 1 each PO BID #14 tablet 10/30/20 12/08/23 [Bactrim Ds 800/160] Semaglutide [Ozempic] See Rx Instructions .ROUTE .COMPLEX 09/29/23 12/08/23 Ferrous Gluconate 324 mg PO DAILY #30 tablet 12/08/23 Warfarin [Coumadin] 5 mg PO DAILY 12/08/23 12/08/23 - Allergies Allergies/Adverse Reactions: Allergies Allergy/AdvReac Type Severity Reaction Status Date / Time prednisone AdvReac Rash Verified 12/08/23 09:38 - Social History Does the pt smoke?: Yes Smoking Status: Current every day smoker Does the pt drink ETOH?: Yes Does the pt have substance abuse?: No - Immunizations Immunizations are current?: Yes - POLST Patient has POLST: No PD ED PE NORMAL - Vitals Vital signs reviewed: Yes - General General: Alert and oriented X 3, No acute distress, Well developed/nourished - Neck Neck: Supple, no meningeal sign, No adenopathy - Cardiac Cardiac: RRR, No murmur - Respiratory Respiratory: No respiratory distress, Clear bilaterally - Abdomen Abdomen: Soft, Non tender - Derm Derm: No: Normal color (mild pallor) - Extremities Extremities: No edema, No calf tenderness / cord - Neuro Neuro: Alert and oriented X 3, No motor deficit, Normal speech Eye Opening: Spontaneous Motor: Obeys Commands Verbal: Oriented GCS Score: 15 Results - Vitals Vitals: Vital Signs - 24 hr 12/08/23 12/08/23 11:25 12:32 Temperature 37.0 C Heart Rate 71 70 Respiratory 18 16 Rate Blood Pressure 126/62 O2 Saturation 98 Oxygen O2 Source Room air - Labs Labs: Laboratory Tests 12/08/23 12/08/23 12/08/23 10:25 10:25 10:25 WBC 10.0 RBC 4.05 L Hgb 8.4 L Hct 31.3 L MCV 77.3 L MCH 20.7 L MCHC 26.8 L RDW 22.6 H Plt Count 199 MPV 9.5 Neut # (Auto) 8.4 H Lymph # (Auto) 0.8 L [place] # (Auto) 0.6 Eos # (Auto) 0.2 Baso # (Auto) 0.1 Absolute Nucleated RBC 0.00 Nucleated RBC % 0.0 Sodium 139 Potassium 4.3 Chloride 104 Carbon Dioxide 28 Anion Gap 7.0 BUN 23 H Creatinine 0.9 Estimated GFR (MDRD) 82 L Glucose 129 H Calcium 10.0 Magnesium 2.1 Total Bilirubin 1.1 H AST 31 ALT 33 Alkaline Phosphatase 126 H B-Natriuretic Peptide 378 H Total Protein 6.7 Albumin 3.9 Globulin 2.8 Albumin/Globulin Ratio 1.4 Lipase 25 - Rads (name of study) chest xray Relevant Findings:: Prelim report reviewed, EMP independent interpretation of test (small effusions. No innfiltrates and does not appear as failure. ) PD Medical Decision Making - ED course Complexity details: reviewed old records (prior lab testing from Jun 2023 shows iron deficiency. Current CBC indices are low suggestiong persistent iron deficiency. Can add supplement as he does not believe he has been on one. Eval has been for blood loss, which can be complementary to iron supplement. ), reviewed results (Hgb 8.4, which is around his recent test levels. Not low enough for transfusion. Normal BNP only in 300s. CXR does not show failure nor infiltrates; small bilateral effusions and some atelectasis. He does have MDIs at home and encouraged him to use QID. ), considered differential (his main focus today was to evaluate for severe anemia. He has had transfusions several times recently for low blood count with dyspnea. Has had positive guiac test once but negative EGD/lower scope. Getting "virtual scope" next week. He is not on iron supplements. Otherwise no recent URI symptoms. ), d/w patient Departure - Departure Disposition: 01 Home, Self Care Clinical Impression: Dyspnea, COPD (chronic obstructive pulmonary disease), CHF exacerbation Anemia Qualifiers: Anemia type: iron deficiency Iron deficiency anemia type: unspecified iron deficiency Qualified Code(s): D50.9 - Iron deficiency anemia, unspecified Condition: Stable Record reviewed to determine appropriate education?: Yes Follow-Up: Uriel Crystal MD [Primary Care Provider] - Prescriptions: Ferrous Gluconate 324 mg PO DAILY #30 tablet Comments: You do have the chronic anemia. Your hemoglobin today was 8.4 so not low enough for transfusion. Your chest x-ray and blood test are suggestive of some fluid overload so increasing your diuretic for several days. I would also suggest you doing your inhaler/nebulizer 4 times daily regularly if you do not already for the next several days to week. By your previous blood testing, you do look to be iron deficient. If you are not currently on an iron supplement, that would be a good suggestion. Follow-up with your primary care and combat systems engineer later this week as scheduled. Forms: PCP List Discharge Date/Time: 12/08/23 12:32
[2023-12-08 10:33] LABS: BASOPHILS # (AUTO) 0.1 10^3/uL (0.0-0.1); BASOPHILS % (AUTO) 0.6 %; EOSINOPHILS # (AUTO) 0.2 10^3/uL (0.0-0.7); EOSINOPHILS % (AUTO) 1.5 %; HCT - HEMATOCRIT 31.3 % (42.0-52.0); HGB - HEMOGLOBIN 8.4 g/dL (14.0-18.0); LYMPHOCYTES # (AUTO) 0.8 10^3/uL (1.5-3.5); LYMPHOCYTES % (AUTO) 7.8 %; MEAN CORPUSCULAR HEMOGLOBIN 20.7 pg (27.0-31.0); MEAN CORPUSCULAR HGB CONC 26.8 g/dL (32.0-36.0); MEAN CORPUSCULAR VOLUME 77.3 fL (80.0-94.0); MEAN PLATELET VOLUME 9.5 fL (7.4-11.4); MONOCYTES # (AUTO) 0.6 10^3/uL (0.0-1.0); MONOCYTES % (AUTO) 5.9 %; NEUTROPHILS # (AUTO) 8.4 10^3/uL (1.5-6.6); NEUTROPHILS % (AUTO) 83.9 %; PLT - PLATELET COUNT 199 10^3/uL (130-450); RED BLOOD COUNT 4.05 10^6/uL (4.70-6.10); RED CELL DISTRIBUTION WIDTH 22.6 % (12.0-15.0)
[2023-12-08 10:46] LABS: ALBUMIN 3.9 g/dL (3.2-5.5); ALBUMIN/GLOBULIN RATIO 1.4 (1.0-2.2); BILIRUBIN,TOTAL 1.1 mg/dL (0.2-1.0); CREATININE 0.9 mg/dL (0.6-1.3); MAGNESIUM 2.1 mg/dL (1.7-2.3); POTASSIUM 4.3 mmol/L (3.5-4.5); TOTAL PROTEIN 6.7 g/dL (6.4-8.9)
[2023-12-08] MEDS: IPRATROPIUM/ALBUTEROL 3 ML NEB INH STA (11:24)
--- NOTE | 2023-12-08 11:36 | XRAY Report ---
PROCEDURE: Chest 1V INDICATIONS: SOA TECHNIQUE: One view of the chest was acquired. COMPARISON: None. FINDINGS: Surgical changes and devices: Left chest wall AICD device. Lungs and pleura: No pneumothorax. Bilateral pleural effusions and subadjacent opacities. Mediastinum: Mediastinal contours appear normal. Heart border is obscured. Bones and chest wall: No suspicious bony lesions. Overlying soft tissues appear unremarkable. IMPRESSION: Bilateral pleural effusions with subjacent opacities likely atelectasis. Reviewed by: Kayleen Hill MD, PhD on 12/08/2023 11:35 AM PDT Approved by: Kayleen Hill MD, PhD on 12/08/2023 11:35 AM PDT Station ID: [id number]
[2023-12-08 12:36] VITALS: BP 126/62; O2SAT 98
== END 2023-12-08 12:32 | disposition home or self-care (01) ==
LOC: ED 09:07
DX: I11.0 Hypertensive heart disease with heart failure (principal); I50.9 Heart failure, unspecified; J44.9 Chronic obstructive pulmonary disease, unspecified; D50.9 Iron deficiency anemia, unspecified; E78.00 Pure hypercholesterolemia, unspecified; I25.10 Atherosclerotic heart disease of native coronary artery without angina pectoris; I25.2 Old myocardial infarction; G47.30 Sleep apnea, unspecified; E11.9 Type 2 diabetes mellitus without complications; N40.0 Benign prostatic hyperplasia without lower urinary tract symptoms; Z79.4 Long term (current) use of insulin; Z79.84 Long term (current) use of oral hypoglycemic drugs; Z79.01 Long term (current) use of anticoagulants; Z79.899 Other long term (current) drug therapy; F17.200 Nicotine dependence, unspecified, uncomplicated
CPT/HCPCS: 36415; 80053; 83690; 83735; 83880; 85025; 94640; 99284

== ENCOUNTER 2023-12-13 12:49 | Outpatient (CLI) | payer MEDICARE, OTHER ==
[2023-12-13 13:03] LABS: BASOPHILS # (AUTO) 0.1 10^3/uL (0.0-0.1); BASOPHILS % (AUTO) 0.8 %; EOSINOPHILS # (AUTO) 0.1 10^3/uL (0.0-0.7); EOSINOPHILS % (AUTO) 1.3 %; HGB - HEMOGLOBIN 7.9 g/dL (14.0-18.0); LYMPHOCYTES % (AUTO) 10.7 %; MEAN CORPUSCULAR HEMOGLOBIN 19.8 pg (27.0-31.0); MEAN CORPUSCULAR HGB CONC 26.3 g/dL (32.0-36.0); MEAN CORPUSCULAR VOLUME 75.4 fL (80.0-94.0); MEAN PLATELET VOLUME 9.1 fL (7.4-11.4); MONOCYTES # (AUTO) 0.7 10^3/uL (0.0-1.0); MONOCYTES % (AUTO) 7.1 %; NEUTROPHILS # (AUTO) 7.8 10^3/uL (1.5-6.6); NEUTROPHILS % (AUTO) 79.6 %; NRBC ABSOLUTE COUNT (AUTO) 0.03 x10^3/uL; NUCLEATED RED BLOOD CELLS AUTO 0.3 /100WBC; PLT - PLATELET COUNT 243 10^3/uL (130-450); RED BLOOD COUNT 3.98 10^6/uL (4.70-6.10); RED CELL DISTRIBUTION WIDTH 22.4 % (12.0-15.0); WHITE BLOOD COUNT 9.7 x10^3/uL (4.8-10.8)
[2023-12-13 13:06] LABS: SLIDE REVIEW? Indicated
[2023-12-13 14:01] LABS: PLATELET ESTIMATE, MANUAL NORMAL (130-450,000) (NORMAL); PLATELET MORPHOLOGY NORMAL APPEARANCE (NORMAL)
== END 2023-12-13 12:50 | disposition home or self-care (01) ==
LOC: LAB 12:49
PROVIDERS: ATTEND Internal Medicine
DX: D50.9 Iron deficiency anemia, unspecified (principal)
CPT/HCPCS: 36415; 85025

== ENCOUNTER 2024-01-20 18:35 | Emergency (ER) | payer MEDICARE, OTHER ==
[2024-01-20 19:24] LABS: BASOPHILS # (AUTO) 0.1 10^3/uL (0.0-0.1); BASOPHILS % (AUTO) 0.9 %; EOSINOPHILS # (AUTO) 0.1 10^3/uL (0.0-0.7); EOSINOPHILS % (AUTO) 1.3 %; HCT - HEMATOCRIT 26.6 % (42.0-52.0); LYMPHOCYTES # (AUTO) 1.3 10^3/uL (1.5-3.5); LYMPHOCYTES % (AUTO) 15.6 %; MEAN CORPUSCULAR HEMOGLOBIN 17.2 pg (27.0-31.0); MEAN CORPUSCULAR HGB CONC 24.4 g/dL (32.0-36.0); MEAN CORPUSCULAR VOLUME 70.4 fL (80.0-94.0); MEAN PLATELET VOLUME 10.2 fL (7.4-11.4); MONOCYTES # (AUTO) 0.5 10^3/uL (0.0-1.0); NEUTROPHILS # (AUTO) 6.5 10^3/uL (1.5-6.6); NEUTROPHILS % (AUTO) 75.8 %; NRBC ABSOLUTE COUNT (AUTO) 0.05 x10^3/uL; NUCLEATED RED BLOOD CELLS AUTO 0.6 /100WBC; PLT - PLATELET COUNT 196 10^3/uL (130-450); RED BLOOD COUNT 3.78 10^6/uL (4.70-6.10); RED CELL DISTRIBUTION WIDTH 21.6 % (12.0-15.0); WHITE BLOOD COUNT 8.5 x10^3/uL (4.8-10.8)
[2024-01-20 19:28] LABS: HGB - HEMOGLOBIN 6.5 g/dL (14.0-18.0)
[2024-01-20 19:33] LABS: ALBUMIN 4.2 g/dL (3.2-5.5); BILIRUBIN,TOTAL 1.2 mg/dL (0.2-1.0); CALCIUM 9.7 mg/dL (8.5-10.3); CREATININE 1.2 mg/dL (0.6-1.3); POTASSIUM 3.7 mmol/L (3.5-4.5); SLIDE REVIEW? Indicated; TOTAL PROTEIN 6.3 g/dL (6.4-8.9)
[2024-01-20 19:46] LABS: PLATELET ESTIMATE, MANUAL NORMAL (130-450,000) (NORMAL); PLATELET MORPHOLOGY NORMAL APPEARANCE (NORMAL)
[2024-01-20 20:08] LABS: INR 2.9 (0.8-1.2); PT - PROTHROMBIN TIME 29.4 secs (9.9-12.6)
--- NOTE | 2024-01-20 20:10 | XRAY Report ---
PROCEDURE: Chest 1V INDICATIONS: SOA TECHNIQUE: One view of the chest was acquired. COMPARISON: CXR 12/08/2023. FINDINGS: Surgical changes and devices: Left pacemaker. Lungs and pleura: No pleural effusions or pneumothorax. Somewhat prominent pulmonary markings. No co nsolidation. Mediastinum: Mediastinal contours appear normal. Heart size is prominent. Bones and chest wall: No suspicious bony lesions. Overlying soft tissues appear unremarkable. IMPRESSION: Question pulmonary vasculature engorgement. Reviewed by: Joe Aldana MD on 01/20/2024 8:09 PM PDT Approved by: Joe Aldana MD on 01/20/2024 8:09 PM PDT Station ID: [id number]
--- NOTE | 2024-01-20 20:46 | ED Physician Documentation ---
History of Present Illness - Stated complaint Stated Complaint: SOA,DIZZY - Chief complaint Chief Complaint: Resp - History obtained from History obtained from: Patient - Additonal information Additional information: Patient is a 73-year-old male with a history of A-fib and chronic anemia presenting for evaluation of feeling short of air, lightheaded for the past 4 to 5 days. Patient states he has had these episodes in the past and is usually related to him being anemic and requiring a blood transfusion. Patient had outpatient labs done yesterday which were ordered by his band bias machine operator and this morning he checked his labs and saw that his hemoglobin was 7. He reports he is never seen a pants presser before but does believe that the PA with his band bias machine operator office has sent a referral for him to see 1 here locally. Denies chest pain. Denies abdominal symptoms. Does have chronic lower extremity swelling. Does take warfarin for history of A-fib. Denies black or bloody stools.Reports that he has been evaluated for his anemia in the past and they are unsure as to why he is always so anemic.He does report having had prior endoscopies. Review of Systems Constitutional: denies: Fever Cardiac: denies: Chest pain / pressure Respiratory: reports: Dyspnea GI: denies: Abdominal Pain, Vomiting PD PAST MEDICAL HISTORY - Past Medical History Cardiovascular: Congestive heart failure, Hypertension, High cholesterol, Coronary artery disease, [place] Respiratory: COPD, Sleep apnea, CPAP use, Other Endocrine/Autoimmune: Type 2 diabetes GI: GERD : Benign prostate hypertrophy HEENT: Glaucoma Psych: Depression Musculoskeletal: Chronic back pain Derm: Other - Past Surgical History Past Surgical History: Yes General: Cholecystectomy, Appendectomy, Colonoscopy - Present Medications Home Medications: Ambulatory Orders Medication Instructions Recorded Confirmed Fluticasone/Salmeterol [Advair 250 mcg INH BID 02/01/14 12/08/23 250-50 Diskus] Furosemide [Lasix] 40 mg PO DAILY PRN 02/01/14 12/08/23 Insulin Regular, Human [Humulin R] 16 unit SQ DAILY PM 02/01/14 12/08/23 Ipratropium/Albuterol [Combivent 4 gm IH QID PRN 02/01/14 12/08/23 Respimat] Metformin HCl [Glucophage Xr] 1,000 mg PO QPM 02/01/14 12/08/23 Metoprolol Tartrate 100 mg PO DAILY 02/01/14 12/08/23 Terazosin [Hytrin] 10 mg PO DAILY 02/01/14 12/08/23 Empagliflozin/Metformin HCl 1,000 mg PO BID 12/22/16 12/08/23 [Synjardy 5-1,000 mg Tablet] Ibuprofen [Motrin] 800 mg PO DAILY 12/22/16 12/08/23 Sulfamethox/Trimeth 800/160 1 each PO BID #14 tablet 10/30/20 12/08/23 [Bactrim Ds 800/160] Semaglutide [Ozempic] See Rx Instructions .ROUTE .COMPLEX 09/29/23 12/08/23 Ferrous Gluconate 324 mg PO DAILY #30 tablet 12/08/23 Warfarin [Coumadin] 5 mg PO DAILY 12/08/23 12/08/23 - Allergies Allergies/Adverse Reactions: Allergies Allergy/AdvReac Type Severity Reaction Status Date / Time prednisone AdvReac Anxiety Verified 01/20/24 18:49 - Social History Does the pt smoke?: Yes Smoking Status: Current every day smoker Does the pt drink ETOH?: Yes Does the pt have substance abuse?: No - Immunizations Immunizations are current?: Yes - POLST Patient has POLST: No PD ED PE NORMAL - General General: Alert and oriented X 3, No acute distress, Well developed/nourished - HEENT HEENT: Atraumatic, Moist mucous membranes, Pharynx benign - Neck Neck: Supple, no meningeal sign - Cardiac Cardiac: Strong equal pulses, Other (Irregularly irregular) - Respiratory Respiratory: No respiratory distress, Clear bilaterally - Abdomen Abdomen: Soft, Non tender, Non distended - Derm Derm: Warm and dry - Extremities Extremities: Other (Bilateral lower extremity edema) Results - Vitals Vitals: Vital Signs - 24 hr 01/20/24 01/20/24 01/20/24 18:42 20:00 21:01 Temperature 36.3 C L 98.1 C H Heart Rate 71 70 Heart Rate [ 70 Monitoring electrodes] Respiratory 18 28 H 15 Rate Blood Pressure 123/45 L 123/69 Blood Pressure 108/45 L [Right Brachial artery] O2 Saturation 100 97 99 If not protocol : Oxygen Flow, liters/minute 01/20/24 01/20/24 01/20/24 21:15 21:19 22:00 Temperature 3.6 C L 36.9 C Heart Rate Heart Rate [ 74 70 70 Monitoring electrodes] Respiratory 16 16 17 Rate Blood Pressure Blood Pressure 112/53 L 119/60 117/58 L [Right Brachial artery] O2 Saturation 99 99 96 If not protocol : Oxygen Flow, liters/minute 01/20/24 01/20/24 01/20/24 22:30 23:14 23:34 Temperature 36.8 C 36.9 C Heart Rate Heart Rate [ 72 78 72 Monitoring electrodes] Respiratory 17 18 16 Rate Blood Pressure Blood Pressure 128/63 122/64 122/56 L [Right Brachial artery] O2 Saturation 98 96 94 If not protocol : Oxygen Flow, liters/minute 01/20/24 01/20/24 01/21/24 23:50 23:51 00:00 Temperature 36.8 C 36.8 C Heart Rate 76 Heart Rate [ 79 79 Monitoring electrodes] Respiratory 18 18 22 Rate Blood Pressure 115/54 L Blood Pressure 124/51 L 124/51 L [Right Brachial artery] O2 Saturation 99 99 99 If not protocol : Oxygen Flow, liters/minute 01/21/24 01/21/24 01/21/24 00:20 01:26 01:41 Temperature 37.0 C 37 C 37.1 C Heart Rate Heart Rate [ 75 83 59 L Monitoring electrodes] Respiratory 17 18 18 Rate Blood Pressure Blood Pressure 115/54 L 133/108 H 125/51 L [Right Brachial artery] O2 Saturation 97 96 95 If not protocol 0 : Oxygen Flow, liters/minute 01/21/24 01:42 Temperature 37.1 C Heart Rate 59 L Heart Rate [ Monitoring electrodes] Respiratory 18 Rate Blood Pressure 125/50 L Blood Pressure [Right Brachial artery] O2 Saturation 95 If not protocol : Oxygen Flow, liters/minute Oxygen O2 Source Room air - EKG (time done) 1930 EKG releavant findings:: EKG personally interpreted by author of this note. Relevant findings are: Rate 72, atrial fibrillation, left bundle branch block, no STEMI - Labs Labs: Laboratory Tests 01/20/24 01/20/24 01/20/24 19:12 19:12 19:12 WBC 8.5 RBC 3.78 L Hgb 6.5 L* Hct 26.6 L MCV 70.4 L MCH 17.2 L MCHC 24.4 L RDW 21.6 H Plt Count 196 MPV 10.2 Neut # (Auto) 6.5 Lymph # (Auto) 1.[address] [place] # (Auto) 0.5 Eos # (Auto) 0.1 Baso # (Auto) 0.1 Absolute Nucleated RBC 0.05 Nucleated RBC % 0.6 Manual Slide Review Indicated Platelet Estimate NORMAL (130-450,000) Platelet Morphology NORMAL APPEARANCE RBC Morph Micro Appear 1+ TARGET CELLS PT INR Sodium 139 Potassium 3.7 Chloride 102 Carbon Dioxide 25 Anion Gap 12.0 BUN 29 H Creatinine 1.2 Estimated GFR (MDRD) 59 L Glucose 160 H Calcium 9.7 Total Bilirubin 1.2 H AST 24 ALT 20 Alkaline Phosphatase 103 B-Natriuretic Peptide 413 H Total Protein 6.3 L Albumin 4.2 Globulin 2.1 Albumin/Globulin Ratio 2.0 Lipase 44 Blood Type Antibody Screen Crossmatch IS Only 01/20/24 01/20/24 19:12 19:42 WBC RBC Hgb Hct MCV MCH MCHC RDW Plt Count MPV Neut # (Auto) Lymph # (Auto) [place] # (Auto) Eos # (Auto) Baso # (Auto) Absolute Nucleated RBC Nucleated RBC % Manual Slide Review Platelet Estimate Platelet Morphology RBC Morph Micro Appear PT 29.4 H INR 2.9 H Sodium Potassium Chloride Carbon Dioxide Anion Gap BUN Creatinine Estimated GFR (MDRD) Glucose Calcium Total Bilirubin AST ALT Alkaline Phosphatase B-Natriuretic Peptide Total Protein Albumin Globulin Albumin/Globulin Ratio Lipase Blood Type A POSITIVE Antibody Screen NEGATIVE Crossmatch IS Only See Detail PD Medical Decision Making - ED course Complexity details: reviewed results, re-evaluated patient, d/w patient ED course: Patient is a 73-year-old male presenting for evaluation of weakness, lightheadedness, feeling short of air in the setting of known chronic anemia with recent worsening. Patient had outpatient labs done yesterday showing a hemoglobin of 7. Here vital signs are stable. No chest pain.Chest x-ray without signs of pneumonia. EKG is reviewed. Hemoglobin is 6.5. No signs of acute GI bleed. Patient is on warfarin and INR is therapeutic at 2.9. 2 units of blood were ordered and transfused which patient tolerated well. He was given a dose of Lasix in between. He is feeling better and is awaiting a referral to hematology. He is counseled on concerning symptoms to return for. Departure - Departure Disposition: 01 Home, Self Care Clinical Impression: Acute on chronic anemia Condition: Stable Instructions: ED Anemia Type Not Specified Comments: You were found to have worsening anemia today with hemoglobin of 6.5. You are given 2 units of blood transfused. You do need close follow-up with your primary care provider and likely would benefit from a referral to a pants presser which is a specialist and anemia. Continue with taking her usual medications. Return to the ER if you develop any worsening symptoms. Forms: PCP List Discharge Date/Time: 01/21/24 01:42
[2024-01-20] MEDS: FUROSEMIDE 20 MG/2 ML VIAL IVP STA (23:15)
[2024-01-21 01:43] VITALS: O2SAT 95
[2024-01-21 01:53] VITALS: BP 125/50
== END 2024-01-21 01:42 | disposition home or self-care (01) ==
LOC: ED 18:35
DX: D64.9 Anemia, unspecified (principal); I48.91 Unspecified atrial fibrillation; Z79.01 Long term (current) use of anticoagulants; F17.200 Nicotine dependence, unspecified, uncomplicated
CPT/HCPCS: 36415; 71045; 80053; 83690; 83880; 85025; 85610; 86850; 86900; 86901; 86920; 92977; 93005; 96374; 99284; 99285; P9016

== ENCOUNTER 2024-01-29 02:36 | Emergency (ER) | payer MEDICARE, OTHER ==
--- NOTE | 2024-01-29 03:07 | ED Physician Documentation ---
History of Present Illness - Stated complaint Stated Complaint: SOA, FATIGUE,DIZZINESS - Chief complaint Chief Complaint: Resp - History obtained from History obtained from: Patient - Additonal information Additional information: HPI from patient. Patient c/o dyspnea a rest and worse with exertion, dizziness with exertion, and generalized fatigue. He says these symptoms are all chronic, but worse over past 5-7 days. He says that when these symptoms worsen, it is often due to low h/h and that he then is given transfusion and symptoms improve. He says he has iron deficiency anemia but extensive w/u has not revealed any other etiologies (upper GI, colonoscopies). He was T+R from this ED 01/19 for 6.5 hgb, transfused 2 units PRBC. His medications include warfarin for atrial fibrillation (he also says this is taken for his AVR). He is not sure of his target INR, but thinks 2.5- 3.5. Review of Systems Constitutional: reports: Fatigue. denies: Fever, Chills, Myalgias, Sweats Cardiac: reports: Pedal edema. denies: Chest pain / pressure, Palpitations Respiratory: reports: Dyspnea. denies: Cough, Hemoptysis, Wheezing GI: reports: Reviewed and negative PD PAST MEDICAL HISTORY - Past Medical History Cardiovascular: Hypertension, High cholesterol, Coronary artery disease, [place] Respiratory: Sleep apnea, CPAP use, Other Endocrine/Autoimmune: Type 2 diabetes GI: GERD : Benign prostate hypertrophy HEENT: Glaucoma Psych: Depression Musculoskeletal: Chronic back pain Derm: Other - Past Surgical History Past Surgical History: Yes General: Cholecystectomy, Appendectomy, Colonoscopy - Present Medications Home Medications: Ambulatory Orders Medication Instructions Recorded Confirmed Fluticasone Propion/Salmeterol 250 mcg INH BID 02/01/14 12/08/23 [Advair 250-50 Diskus] Furosemide [Lasix] 40 mg PO DAILY PRN 02/01/14 12/08/23 Insulin Regular, Human [Humulin R] 16 unit SQ DAILY PM 02/01/14 12/08/23 Ipratropium/Albuterol [Combivent 4 gm IH QID PRN 02/01/14 12/08/23 Respimat] Metformin HCl [Glucophage Xr] 1,000 mg PO QPM 02/01/14 12/08/23 Metoprolol Tartrate 100 mg PO DAILY 02/01/14 12/08/23 Terazosin [Hytrin] 10 mg PO DAILY 02/01/14 12/08/23 Empagliflozin/Metformin HCl 1,000 mg PO BID 12/22/16 12/08/23 [Synjardy 5-1,000 mg Tablet] Ibuprofen [Motrin] 800 mg PO DAILY 12/22/16 12/08/23 Sulfamethox/Trimeth 800/160 1 each PO BID #14 tablet 10/30/20 12/08/23 [Bactrim Ds 800/160] Semaglutide [Ozempic] See Rx Instructions .ROUTE .COMPLEX 09/29/23 12/08/23 Ferrous Gluconate 324 mg PO DAILY #30 tablet 12/08/23 Warfarin [Coumadin] 5 mg PO DAILY 12/08/23 12/08/23 - Allergies Allergies/Adverse Reactions: Allergies Allergy/AdvReac Type Severity Reaction Status Date / Time prednisone AdvReac Anxiety Verified 01/29/24 02:42 - Social History Does the pt smoke?: Yes Smoking Status: Current every day smoker Does the pt drink ETOH?: Yes Does the pt have substance abuse?: No - Immunizations Immunizations are current?: Yes - POLST Patient has POLST: No PD ED PE NORMAL - Vitals Vital signs reviewed: Yes - General General: Alert and oriented X 3, No acute distress, Well developed/nourished - Neck Neck: Supple, no meningeal sign - Cardiac Cardiac: No murmur - Respiratory Respiratory: No respiratory distress, Clear bilaterally PD ED PE EXPANDED - Cardiac Cardiac: Regular Rate, Irregularly irregular Results - Vitals Vitals: Oxygen O2 Source Room air - Labs Labs: Laboratory Tests 01/29/24 01/29/24 01/29/24 03:00 03:00 03:00 WBC 9.4 RBC 4.24 L Hgb 7.9 L Hct 30.8 L MCV 72.6 L MCH 18.6 L MCHC 25.6 L RDW 22.7 H Plt Count 189 MPV 10.2 Neut # (Auto) 7.2 H Lymph # (Auto) 1.4 L [place] # (Auto) 0.5 Eos # (Auto) 0.1 Baso # (Auto) 0.1 Absolute Nucleated RBC 0.00 Nucleated RBC % 0.0 PT INR APTT Sodium 140 Potassium 3.6 Chloride 105 Carbon Dioxide 26 Anion Gap 9.0 BUN 23 H Creatinine 1.1 Estimated GFR (MDRD) 65 L Glucose 174 H Calcium 9.7 Total Bilirubin 1.3 H AST 28 ALT 23 Alkaline Phosphatase 109 B-Natriuretic Peptide 357 H Total Protein 6.4 Albumin 4.0 Globulin 2.4 Albumin/Globulin Ratio 1.7 Lipase 24 01/29/24 03:50 WBC RBC Hgb Hct MCV MCH MCHC RDW Plt Count MPV Neut # (Auto) Lymph # (Auto) [place] # (Auto) Eos # (Auto) Baso # (Auto) Absolute Nucleated RBC Nucleated RBC % PT 45.4 H INR 4.6 H* APTT 44.8 H Sodium Potassium Chloride Carbon Dioxide Anion Gap BUN Creatinine Estimated GFR (MDRD) Glucose Calcium Total Bilirubin AST ALT Alkaline Phosphatase B-Natriuretic Peptide Total Protein Albumin Globulin Albumin/Globulin Ratio Lipase PD Medical Decision Making - ED course Complexity details: reviewed results, re-evaluated patient, considered differential, d/w patient ED course: NAD, lungs are CTA bilaterally, and he has 97-98% pulse ox on room air. Speaks in full sentences, no respiratory difficulty during H+P. Hgb is 7.9, up from 6.5 on 01/19. Unremarkable BMP with 23 BUN, 1.1 creatinine. INR slightly above target range (4.6). I discussed results with patient and explained that transfusion of PRBC is typically reserved for below 7.0 hgb unless other factors are involved (such as active bleeding). BNP is 357, but this is lower than previous two results in [facility] (November, December 2023). At this time, no further emergent testing nor treatment is indicated, particularly in light of his symptoms being chronic, albeit somewhat worse than usual (per patient). Return precautions reviewed, advised to seek follow up with PCP next available appointment, for reevaluation. Departure - Departure Disposition: 01 Home, Self Care Clinical Impression: Dyspnea Qualifiers: Dyspnea type: shortness of breath Qualified Code(s): R06.02 - Shortness of breath Anemia Qualifiers: Anemia type: unspecified type Qualified Code(s): D64.9 - Anemia, unspecified Condition: Good Instructions: ED Anemia Type Not Specified, ED Dyspnea Shortness of Breath Comments: Your hemoglobin was 7.9 tonight; this is improved from your previous visit when it was 6.5. As we discussed, without other factors (such as active bleeding, low blood pressure and/or low oxygen level), blood transfusions are usually given when the hemoglobin drops below 7.0. By no means is a 7.9 hemoglobin normal, but, at this point, you are safe and appropriate for discharge home and outpatient follow-up with your primary care provider. Certainly, you should return to the emergency department if your symptoms worsen, or if you develop new/concerning signs/symptoms (such as blood in the stool, dark black tarry stool, abdominal pain, fever). Your INR ("Coumadin level") was slightly above a target range (tonight's result was 4.6). As we discussed, I recommend skipping today's dose of warfarin and resuming tomorrow (resume on Wednesday) at your usual dose. Discharge Date/Time: 01/29/24 04:45
[2024-01-29 03:47] LABS: BASOPHILS # (AUTO) 0.1 10^3/uL (0.0-0.1); EOSINOPHILS # (AUTO) 0.1 10^3/uL (0.0-0.7); EOSINOPHILS % (AUTO) 1.5 %; HCT - HEMATOCRIT 30.8 % (42.0-52.0); HGB - HEMOGLOBIN 7.9 g/dL (14.0-18.0); LYMPHOCYTES # (AUTO) 1.4 10^3/uL (1.5-3.5); LYMPHOCYTES % (AUTO) 15.2 %; MEAN CORPUSCULAR HEMOGLOBIN 18.6 pg (27.0-31.0); MEAN CORPUSCULAR HGB CONC 25.6 g/dL (32.0-36.0); MEAN CORPUSCULAR VOLUME 72.6 fL (80.0-94.0); MEAN PLATELET VOLUME 10.2 fL (7.4-11.4); MONOCYTES # (AUTO) 0.5 10^3/uL (0.0-1.0); MONOCYTES % (AUTO) 5.6 %; NEUTROPHILS # (AUTO) 7.2 10^3/uL (1.5-6.6); NEUTROPHILS % (AUTO) 76.4 %; PLT - PLATELET COUNT 189 10^3/uL (130-450); RED BLOOD COUNT 4.24 10^6/uL (4.70-6.10); RED CELL DISTRIBUTION WIDTH 22.7 % (12.0-15.0); WHITE BLOOD COUNT 9.4 x10^3/uL (4.8-10.8)
[2024-01-29 03:58] LABS: ALBUMIN/GLOBULIN RATIO 1.7 (1.0-2.2); BILIRUBIN,TOTAL 1.3 mg/dL (0.2-1.0); CALCIUM 9.7 mg/dL (8.5-10.3); CREATININE 1.1 mg/dL (0.6-1.3); POTASSIUM 3.6 mmol/L (3.5-4.5); TOTAL PROTEIN 6.4 g/dL (6.4-8.9)
[2024-01-29 04:06] LABS: PARTIAL THROMBOPLASTIN TIME 44.8 secs (24.9-33.3)
[2024-01-29 04:11] LABS: PT - PROTHROMBIN TIME 45.4 secs (9.9-12.6)
[2024-01-29 04:16] LABS: INR 4.6 (0.8-1.2)
[2024-01-29 05:17] VITALS: BP 111/59; O2SAT 97
== END 2024-01-29 04:45 | disposition home or self-care (01) ==
LOC: ED 02:36
DX: D64.9 Anemia, unspecified (principal); R79.1 Abnormal coagulation profile; F17.200 Nicotine dependence, unspecified, uncomplicated
CPT/HCPCS: 36415; 80053; 83690; 83880; 85025; 85610; 85730; 99283; 99284

== ENCOUNTER 2025-01-23 19:46 | Observation (INO) ==
--- OUTSIDE RECORDS SUMMARY | 2025-01-23 19:59 | EXTERNAL MEDICAL SUMMARY RPT | Continuity of Care Document ---
Author Organization [place] Address [address] [address] Phone Care Team Providers Care Vp Human Resources Name Role Phone Unavailable Unavailable Unavailable Uriel Crystal Unavailable Unavailable Medications date description facility 2024-11-23 00:00 Docusate Sodium [facility] 2024-11-23 00:00 Ipratropium-Albuterol [facility] 2024-11-23 00:00 Doxycycline Hyclate [facility] 2024-11-23 00:00 Tiotropium-Olodaterol [facility] 2024-11-23 00:00 Empagliflozin-Metformin [facility] 2024-11-23 00:00 Abiraterone [facility] 2024-11-23 00:00 Nitroglycerin [facility] 2024-11-23 00:00 Albuterol Sulfate [facility] 2024-11-23 00:00 Semaglutide [facility] 2024-11-23 00:00 Insulin Regular Hum U-500 Conc [facility] 2024-11-23 00:00 Leuprolide (3 Month) [facility] 2024-11-23 00:00 Folic Acid [facility] 2024-11-23 00:00 Gabapentin [facility] 2024-11-23 00:00 Prednisone [facility] 2024-11-23 00:00 Omeprazole [facility] 2024-11-23 00:00 Albuterol Sulfate [facility] 2024-11-23 00:00 Cyclobenzaprine [facility] 2024-11-23 00:00 Enoxaparin [facility] 2024-11-23 00:00 Warfarin [facility] 2024-11-23 00:00 Rosuvastatin [facility] 2024-11-23 00:00 Tamsulosin [facility] 2024-11-23 00:00 Metoprolol Succinate [facility] 2024-11-23 00:00 Losartan [facility] Problems date description facility 2024-10-26 16:10 Malignant neoplasm of prostate [facility] 2024-10-26 16:10 Solitary pulmonary nodule [facility] 2024-10-26 16:15 Malignant neoplasm of prostate [facility] 2024-10-26 16:15 Solitary pulmonary nodule [facility] 2024-11-09 09:42 Malignant neoplasm of prostate [facility] 2024-11-09 09:42 Solitary pulmonary nodule [facility] 2024-11-10 00:01 Malignant neoplasm of prostate [facility] 2024-11-10 00:01 Solitary pulmonary nodule [facility] 2024-11-13 12:55 Malignant neoplasm of prostate [facility] 2024-11-14 00:04 Malignant neoplasm of prostate [facility] 2024-11-15 10:10 Malignant neoplasm of prostate [facility] 2024-11-15 10:10 Iron deficiency anemia, unspeci fied [facility] 2024-11-15 10:10 Anemia, unspecified [facility] 2024-11-15 13:11 Malignant neoplasm of prostate [facility] 2024-11-20 14:17 Malignant neoplasm of prostate [facility] 2024-11-20 14:17 Other specified counseling [facility] 2024-11-20 14:17 Counseling, unspecified [facility] 2024-11-22 11:27 Anemia, unspecified [facility] 2024-11-22 11:28 Malignant neoplasm of prostate [facility] 2024-11-22 11:28 Anemia, unspecified [facility] 2024-11-22 11:28 Encounter for [facility] adult medical examination without abnormal findings [facility] 2024-11-28 08:19 Unilateral primary osteoarthrit is, [facility] 2024-11-28 09:08 Unilateral primary osteoarthrit is, [facility] 2024-11-28 12:25 Unilateral primary osteoarthrit is, [facility] 2024-11-29 07:46 Unilateral primary osteoarthrit is, [facility] 2024-11-29 11:50 Unilateral primary osteoarthrit is, [facility] 2024-11-29 11:57 Unilateral primary osteoarthrit is, [facility] 2024-11-29 12:28 Unilateral primary osteoarthrit is, [facility] 2024-12-13 10:11 Malignant neoplasm of prostate [facility] 2024-12-14 00:04 Malignant neoplasm of prostate [facility] 2024-12-14 09:55 Malignant neoplasm of prostate [facility] 2024-12-14 09:55 Iron deficiency anemia, unspeci fied [facility] 2024-12-14 09:55 Anemia, unspecified [facility] 2024-12-14 09:56 Malignant neoplasm of prostate [facility] 2024-12-14 09:56 Iron deficiency anemia, unspeci fied [facility] 2024-12-14 09:56 Anemia, unspecified [facility] 2024-12-14 10:10 Malignant neoplasm of prostate [facility] 2024-12-14 10:10 Iron deficiency anemia, unspeci fied [facility] 2024-12-14 10:10 Anemia, unspecified [facility] 2024-12-14 10:54 Malignant neoplasm of prostate [facility] 2024-12-14 10:54 Other specified soft tissue dis orders [facility] 2024-12-14 10:55 Other specified soft tissue dis orders [facility] 2024-12-14 11:34 Malignant neoplasm of prostate [facility] 2024-12-14 11:34 [facility] deficiency [facility] 2024-12-14 11:34 Anemia, unspecified [facility] 2024-12-15 08:16 Other specified soft tissue dis orders [facility] 2024-12-15 08:19 Other specified soft tissue dis orders [facility] 2024-12-17 07:47 Other specified soft tissue dis orders [facility] 2024-12-19 14:54 Abnormal findings on diagnostic imaging of liver and biliary tract [facility] 2024-12-28 10:00 Other specified soft tissue dis orders [facility] 2025-01-10 00:03 Malignant neoplasm of prostate [facility] 2025-01-10 10:31 Malignant neoplasm of prostate [facility] 2025-01-10 10:31 Iron deficiency anemia, unspeci fied [facility] 2025-01-10 10:31 Anemia, unspecified [facility] 2025-01-10 10:57 Urgency of urination [facility] 2025-01-11 11:05 Malignant neoplasm of prostate [facility] 2025-01-11 11:05 Iron deficiency anemia, unspeci fied [facility] 2025-01-11 11:05 Anemia, unspecified [facility] 2025-01-11 11:05 Urgency of urination [facility] 2025-01-12 07:21 Other urogenital candidiasis [facility] 2025-01-12 07:21 Malignant neoplasm of prostate [facility] 2025-01-12 07:21 Iron deficiency anemia, unspeci fied [facility] 2025-01-12 07:21 Urgency of urination [facility] 2025-01-12 07:21 Encounter for [facility] adult medical examination without abnormal findings [facility] 2025-01-12 07:21 Other specified counseling [facility] 2025-01-12 09:00 Malignant neoplasm of prostate [facility] 2025-01-12 09:00 Iron deficiency anemia, unspeci fied [facility] 2025-01-12 09:00 Anemia, unspecified [facility] 2025-01-12 09:00 Urgency of urination [facility] 2025-01-19 13:11 Malignant neoplasm of prostate [facility] 2025-01-19 13:11 Iron deficiency anemia, unspeci fied [facility] 2025-01-19 13:11 Urgency of urination [facility] Procedures date description facility 2024-11-28 00:00 XR pelvis, 1-2 views [facility] 2024-11-28 00:00 Unilateral x-ray of hip, two views, with x-ray of pelvis [facility] 2024-11-28 00:00 Total Hip Arthroplasty (Left) [facility] Results/Labs test date facility value unit notes Result panel 1 NUCLEATED RED BLOOD CELLS AUTO 2024-11-13 13:06 [facility] 0.0 /100wbc (missing) NRBC ABSOLUTE COUNT (AUTO) 2024-11-13 13:06 [facility] 0.00 x10 3/ul (missing) BASOPHILS # (AUTO) 2024-11-13 13:06 [facility] 0.1 10 3/ul (missing) EOSINOPHILS # (AUTO) 2024-11-13 13:06 [facility] 0.2 10 3/ul (missing) BILIRUBIN,TOTAL 2024-11-13 13:06 [facility] 0.5 mg/dl As of February 2023 testing method has changed, this may include reference ranges. MONOCYTES # (AUTO) 2024-11-13 13:06 [facility] 0.6 10 3/ul (missing) CREATININE 2024-11-13 13:06 [facility] 1.2 mg/dl As of February 2023 testing method has changed, this may include reference ranges. ALBUMIN/GLOBULIN RATIO 2024-11-13 13:06 [facility] 1.6 (missing) (missing) CALCIUM 2024-11-13 13:06 [facility] 10.0 mg/dl As of February 2023 testing method has changed, this may include reference ranges. CHLORIDE 2024-11-13 13:06 [facility] 102 mmol/l As of February 2023 testing method has changed, this may include reference ranges. ALKALINE PHOSPHATASE 2024-11-13 13:06 [facility] 107 iu/l As of February 2023 testing method has changed, this may include reference ranges. PLT - PLATELET COUNT 2024-11-13 13:06 [facility] 123 10 3/ul (missing) HGB - HEMOGLOBIN 2024-11-13 13:06 [facility] 13.0 g/dl (missing) SODIUM 2024-11-13 13:06 [facility] 138 mmol/l As of February 2023 testing method has changed, this may include reference ranges. RED CELL DISTRIBUTION WIDTH 2024-11-13 13:06 [facility] 16.5 % (missing) LYMPHOCYTES # (AUTO) 2024-11-13 13:06 [facility] 2.5 10 3/ul (missing) PSA TOTAL 2024-11-13 13:06 [facility] 2.838 ng/ml [facility] uses a WHO cutoff value of 2.0 ng/mL. GLOBULIN 2024-11-13 13:06 [facility] 2.9 g/dl (missing) BUN - BLOOD UREA NITROGEN 2024-11-13 13:06 [facility] 23 mg/dl As of February 2023 testing method has changed, this may include reference ranges. AST ASPARTATE AMINOTRANSFERASE 2024-11-13 13:06 [facility] 26 iu/l As of February 2023 testing method has changed, this may include reference ranges. MEAN CORPUSCULAR HEMOGLOBIN 2024-11-13 13:06 [facility] 26.3 pg (missing) CARBON DIOXIDE - CO2 2024-11-13 13:06 [facility] 30 mmol/l As of February 2023 testing method has changed, this may include reference ranges. MEAN CORPUSCULAR HGB CONC 2024-11-13 13:06 [facility] 30.3 g/dl (missing) POTASSIUM 2024-11-13 13:06 [facility] 4.0 mmol/l As of February 2023 testing method has changed, this may include reference ranges. ALBUMIN 2024-11-13 13:06 [facility] 4.5 g/dl As of February 2023 testing method has changed, this may include reference ranges. RED BLOOD COUNT 2024-11-13 13:06 [facility] 4.95 10 6/ul (missing) ALT ALANINE AMINOTRANSFERASE 2024-11-13 13:06 [facility] 42 iu/l As of February 2023 testing method has changed, this may include reference ranges. HCT - HEMATOCRIT 2024-11-13 13:06 [facility] 42.9 % (missing) GFR - MDRD 2024-11-13 13:06 [facility] 59 (missing) Social History date description facility 2024-11-28 00:00 Smokes tobacco daily ([facility] Vital Signs date measurement value units 2024-11-28 00:00 BMI 32.6 kg/m2 2024-11-28 00:00 height_metric 170.18 cm 2024-11-28 00:00 height_standard 67 in 2024-11-28 00:00 weight_metric 94.5 kg 2024-11-28 00:00 weight_standard 208.34 lb 2024-11-29 00:00 BP_diastolic 83 mmHg 2024-11-29 00:00 BP_systolic 139 mmHg 2024-11-29 00:00 heart_rate 70 /min 2024-11-29 00:00 o2_saturation 96 % 2024-11-29 00:00 respiration_rate 18 /min 2024-11-29 00:00 temperature_metric 36.94 C 2024-11-29 00:00 temperature_standard 98.5 F
[2025-01-23 20:39] LABS: BASOPHILS % (AUTO) 0.2 %; EOSINOPHILS % (AUTO) 0.2 %; HCT - HEMATOCRIT 21.3 % (42.0-52.0); LYMPHOCYTES # (AUTO) 2.6 10^3/uL (1.5-3.5); LYMPHOCYTES % (AUTO) 19.7 %; MEAN CORPUSCULAR HEMOGLOBIN 29.2 pg (27.0-31.0); MEAN CORPUSCULAR HGB CONC 28.6 g/dL (32.0-36.0); MEAN CORPUSCULAR VOLUME 101.9 fL (80.0-94.0); MEAN PLATELET VOLUME 10.6 fL (7.4-11.4); MONOCYTES # (AUTO) 0.6 10^3/uL (0.0-1.0); MONOCYTES % (AUTO) 4.3 %; NEUTROPHILS # (AUTO) 9.7 10^3/uL (1.5-6.6); NEUTROPHILS % (AUTO) 74.2 %; NRBC ABSOLUTE COUNT (AUTO) 0.05 x10^3/uL; NUCLEATED RED BLOOD CELLS AUTO 0.4 /100WBC; PLT - PLATELET COUNT 112 10^3/uL (130-450); RED BLOOD COUNT 2.09 10^6/uL (4.70-6.10); RED CELL DISTRIBUTION WIDTH 20.1 % (12.0-15.0)
[2025-01-23 20:40] LABS: VBG BASE EXCESS -1.4 mmol/L (-2 - +2); VBG PH 7.406 (7.31-7.41); VBG PO2 41.6 mmHg (25-47); VBG TOTAL CO2 24.6 mmol/L (24-29)
--- NOTE | 2025-01-23 20:45 | XRAY Report ---
PROCEDURE: XR Chest 1V INDICATIONS: SOB TECHNIQUE: One view of the chest was acquired. COMPARISON: 01/20/2024, 11/09/2024 FINDINGS AND IMPRESSION: On this single view study, no dense airspace disease is seen. No pleural effusions. Borderline cardiomegaly. Cardiac electrode leads. Aortic valve replacement. Partially seen gas under the hemidiaphragms, favored to represent prominent colonic and stomach gas. However, dedicated upright abdominal imaging could be obtained if there are any focal symptoms. Degenerative osseous changes Reviewed by: Hilton Griffin MD on 01/23/2025 8:44 PM PDT Approved by: Hilton Griffin MD on 01/23/2025 8:44 PM PDT Station ID: [id number]
[2025-01-23 20:47] LABS: ALBUMIN 3.7 g/dL (3.2-5.5); ALBUMIN/GLOBULIN RATIO 1.9 (1.0-2.2); BILIRUBIN,TOTAL 0.4 mg/dL (0.2-1.0); CREATININE 0.9 mg/dL (0.6-1.3); POTASSIUM 4.9 mmol/L (3.5-4.5); TOTAL PROTEIN 5.7 g/dL (6.4-8.9)
[2025-01-23 20:50] LABS: HGB - HEMOGLOBIN 6.1 g/dL (14.0-18.0)
[2025-01-23] MEDS: PHYTONADIONE INJ (ADULT) 10 MG in SODIUM CHLORIDE 0.9% 50 ML IV ONE (21:00)
[2025-01-23 21:45] LABS: PT - PROTHROMBIN TIME 100.3 secs (9.9-12.6)
--- NOTE | 2025-01-23 21:49 | ED Physician Documentation ---
History of Present Illness Stated complaint Stated Complaint: SOA Chief complaint Chief Complaint: Resp History obtained from History obtained from: Patient Additonal information Additional information: 74yM with pmh chronic iron deficiency anemia, afib on coumadin with recent supratherapeutic inr, p/w weakness over past couple days. denies other symptoms or concerns. no rectal bleeding or black stools. recent colonoscopy / endoscopy in november 2023 was normal. Meds/Allgy Home Medications Ambulatory Orders Medication Instructions Recorded Confirmed Omeprazole 20 mg PO DAILY 02/09/2411/14 Tiotropium Br/Olodaterol Hcl 4 g IH UD 02/09/24 [Stiolto Respimat Inhaler (10)] albuterol sulfate 90 mcg/actuation 2 puff IH Q6HR 01/2101/23/25 breath activated powder inhaler (ProAir RespiClick) ascorbic acid (vitamin C) 1,000 mg 1,000 mg PO DAILY 0 02/09/24 01/23/25 tablet cyclobenzaprine 10 mg tablet 10 mg PO PRN PRN Spasms 0 02/09/24 01/23/25 docusate sodium 100 mg capsule 100 mg PO UD 02/09/24 0 01/23/25 (Stool Softener) empagliflozin 5 mg-metformin 1,000 1 ea PO BID 4 01/23/25 mg tablet (Synjardy) furosemide 40 mg tablet 80 mg PO UD 02/09/24 5 insulin regular human 100 unit/mL 10 unit subcut BID 0 02/09/24 01/23/25 injection solution (Humulin R Regular U-100 Insulin) metoprolol succinate 200 mg 50 mg PO BID 02/09/2411/14 tablet,extended release 24 hr (Toprol XL) nitroglycerin 0.4 mg sublingual 0.4 mg sublingual Q5MI N PRN 02/09/24 01/23/25 tablet Moderate Pain (Level 4-6) rosuvastatin 40 mg tablet (Crestor) 40 mg PO DAILY 01/23/25 semaglutide (weight loss) 0.5 1 mg SQ UD 02/09/2411/14 mg/0.5 mL subcutaneous pen injector (Wegovy) spironolactone 25 mg tablet 12.5 mg PO DAILY 02/09/24 01/23/25 (Aldactone) tamsulosin 0.4 mg capsule 2 cap PO DAILY PM 02/09/24 0 01/23/25 warfarin 2.5 mg tablet 5 mg PO UD 04/05/24 01/23/25 folic acid 1 mg tablet 1 mg PO QDAY #30 tabs 01/23/25 gabapentin 100 mg capsule 300 mg PO BID 09/22/2401/23 mupirocin 2 % topical ointment 1 applic topical BID 7 days #22 09/22/24 01/23/25 (Centany) grams abiraterone 250 mg tablet 1,000 mg (4 x 250 mg) PO QAM #120 10/19/24 01/23/25 tabs fluconazole 200 mg tablet 200 mg PO QDAY #14 tabs 12/2201/23/25 Allergies Allergies Allergy/AdvReac Type Severity Reaction Status Date / Time No Known Drug Allergies Allergy Verified 01/23/25 19:53 PFSH Active Problems All Active Problems (Updated 01/23/25 @ 21:49 by Tonia Tolentino MD) Anemia (Acute) Urinary urgency (Acute) Left leg swelling (Acute) Pulmonary nodule, right (Acute) Wound of right lower extremity (Acute) Thrombocytopenia (Acute) Iron deficiency anemia (Acute) Anemia (Acute) Healthcare maintenance (Acute) Recurrent prostate cancer (Acute) Upper respiratory infection (Acute) Strain of chest wall (Acute) Lymphadenopathy (Acute) Prostatitis (Acute) Urethritis (Acute) Dysuria (Acute) Cellulitis (Acute) Left foot pain (Acute) Plantar fasciitis of left foot (Acute) Surgical History Surgical History (Updated 07/13/24 @ 09:17 by Regi Fields, IZAIAH, BSN) H/O aortic valve replacement Social History Social History (Updated 07/13/24 @ 09:17 by Regi Fields, RN, BSN) Smoking Status: Current every day smoker Number of Years Smoked: 66 How many cigarettes a day do you smoke? (20 cigarettes=1 Pk): 20 Do you dip or chew tobacco?: No Marital Status: Support Person: No Relationship: Do you feel safe in your home environment?: Yes Suffered physical, verbal, emotional, or financial abuse?: No History of Abuse: No ETOH Use: Frequency: Occasional Substance Use: denies use Service: Yes POLST Patient has POLST: No Exam Exam Vital Signs: Vital Signs x48h Temp Pulse Resp BP Pulse Ox 01/23/25 21:20 65 17 109/56 L 98 01/23/25 21:13 17 01/23/25 19:50 36.5 C 71 24 122/53 L 100 Constitutional normal general appearance, no apparent distress and average body habitus HENMT normocephalic and head/scalp atraumatic Eyes PERRL and EOMs intact bilaterally Neck/C-Spine visual inspection normal Chest inspection of chest normal Respiratory breath sounds equal bilaterally, normal respiratory effort and clear to auscultation bilaterally Cardiovascular normal heart rate noted and regular rhythm noted Results Vitals Vitals: Vital Signs - 24 hr 01/23/25 19:50 01/23/25 21:13 01/23/25 21:20 Temperature 36.5 C Temperature Source Tympanic Pulse Rate 71 65 Respiratory Rate 24 17 17 Blood Pressure 122/53 L 109/56 L O2 Saturation 100 98 O2 Source Room air Room air Room air Pain Intensity 0 0 0 Oxygen O2 Source Room air Labs Labs: Laboratory Tests 01/23/25 20:28 WBC 13.0 H RBC 2.09 L Hgb 6.1 L* Hct 21.3 L MCV 101.9 H MCH 29.2 MCHC 28.6 L RDW 20.1 H Plt Count 112 L MPV 10.6 Neut # (Auto) 9.7 H Lymph # (Auto) 2.6 [place] # (Auto) 0.6 Eos # (Auto) 0.0 Baso # (Auto) 0.0 Absolute Nucleated RBC 0.05 Nucleated RBC % 0.4 VBG pH 7.406 VBG pCO2 37.0 L VBG pO2 41.6 VBG HCO3 23.5 VBG Total CO2 24.6 VBG O2 Saturation 73.0 VBG Base Excess -1.4 Sodium 136 Potassium 4.9 H Chloride 105 Carbon Dioxide 23 Anion Gap 8.0 BUN 48 H Creatinine 0.9 Estimated GFR (MDRD) 82 L Glucose 116 H Calcium 9.0 Total Bilirubin 0.4 AST 19 ALT 19 Alkaline Phosphatase 60 Total Protein 5.7 L Albumin 3.7 Globulin 2.0 L Albumin/Globulin Ratio 1.9 PD Medical Decision Making ED course ED course: 74yM presents with anemia requiring blood transfusion. patient admitted to telehealth pending transfusion, with INR pending. plan for trending of INR and h and h. Discharge Plan Discharge Patient Disposition: ED Place in Observation Clinical Impression: Anemia Qualifiers: Anemia type: unspecified type Qualified Code(s): D64.9 - Anemia, unspecified Prescriptions: No Action folic acid 1 mg tablet 1 mg PO QDAY Qty: 30 2RF ProAir RespiClick 90 MCG aerosol powdr breath activated 2 puff IH Q6HR cyclobenzaprine 10 MG tablet 10 mg PO PRN PRN (Reason: Spasms) furosemide 40 MG tablet 80 mg PO UD ascorbic acid (vitamin C) 1,000 MG tablet 1,000 mg PO DAILY metoprolol succinate [Toprol XL] 200 MG tablet extended release 24 hr 50 mg PO BID Rx Instructions: 50 mg AM/25 mg PM spironolactone [Aldactone] 25 MG tablet 12.5 mg PO DAILY tamsulosin 0.4 MG capsule 2 cap PO DAILY PM Humulin R Regular U-100 Insuln 100 UNIT/ML solution 10 unit subcut BID nitroglycerin 0.4 MG tablet, sublingual 0.4 mg sublingual Q5MIN PRN (Reason: Moderate Pain (Level 4-6)) docusate sodium [Stool Softener] 100 MG capsule 100 mg PO UD rosuvastatin [Crestor] 40 MG tablet 40 mg PO DAILY Synjardy 1 EACH tablet 1 ea PO BID Wegovy 0.5 MG/0.5 ML pen injector 1 mg SQ UD Omeprazole 20 MG Tablet.Dr 20 mg PO DAILY Tiotropium Br/Olodaterol Hcl [Stiolto Respimat Inhaler (10)] 4 GM Mist.Inhal 4 g IH UD gabapentin 100 mg capsule 300 mg PO BID warfarin 2.5 MG tablet 5 mg PO UD Rx Instructions: 4 times/week mupirocin [Centany] 2 % ointment 1 applic topical BID 7 Days Qty: 22 0RF abiraterone 250 mg tablet 1,000 mg PO QAM Qty: 120 2RF Rx Instructions: must be taken on empty stomach, at least 1 hr before or 2 hrs after a meal/food fluconazole 200 mg tablet 200 mg PO QDAY Qty: 14 0RF Print Language: Fijian Stand Alone Forms: PCP List
[2025-01-23 21:52] LABS: INR 9.6 (0.8-1.2)
[2025-01-23] MEDS ORDERED: SODIUM CHLORIDE FLUSH 0.9% 10 ML SYRINGE IVP PRN (21:55)
[2025-01-23] MEDS ORDERED: ONDANSETRON ODT 4 MG TABLET TL PRN (21:55)
[2025-01-23] MEDS ORDERED: oxyCODONE 5 MG TABLET PO PRN (21:55)
[2025-01-23] MEDS ORDERED: MORPHINE 2 MG/ML CARPUJECT IVP PRN (21:55)
[2025-01-23] MEDS ORDERED: ACETAMINOPHEN 325 MG TABLET PO PRN (21:55)
[2025-01-23] MEDS ORDERED: CYCLOBENZAPRINE 10 MG TABLET PO PRN (21:58)
[2025-01-23] MEDS ORDERED: PHYTONADIONE 10 MG/ML AMP ONE (22:05)
[2025-01-23] MEDS: PHYTONADIONE INJ (ADULT) 5 MG in SODIUM CHLORIDE 0.9% 50 ML IV ONE (22:11)
[2025-01-23] MEDS: SODIUM CHLORIDE 0.9% 1,000 ML IV SCH (22:20)
--- NOTE | 2025-01-23 22:28 | HISTORY & PHYSICAL EXAMINATION ---
Chief Complaint Chief Complaint Chief Complaint: sob History of Present Illness History of Present Illness HPI Comment/Other: This is a 74 yo male with pmhx of htn, hld, cad, T2dm, afib on coumadin who presented with sob and fatigue and weakness. Pt states started antifungal about 2 weeks ago and had INR checked and was told to hold his coumadin for a day and then pt states began taking coumadin again per instructions. Pt noted INR was 5.1 and was told to hold for 2 doses and states day of presentation INR was unreadable and therefore pt presented to ER given this and symptoms. Pt denies any melena, brbr, no chest pain, no hematemesis. No hematochezia, no fevers or chills. Review of Systems per hpi PFS Active Problems All Active Problems (Updated 01/23/25 @ 22:27 by Sampson Joaquin DO) Supratherapeutic INR (Acute) Anemia (Acute) Urinary urgency (Acute) Left leg swelling (Acute) Pulmonary nodule, right (Acute) Wound of right lower extremity (Acute) Thrombocytopenia (Acute) Iron deficiency anemia (Acute) Anemia (Acute) Healthcare maintenance (Acute) Recurrent prostate cancer (Acute) Upper respiratory infection (Acute) Strain of chest wall (Acute) Lymphadenopathy (Acute) Prostatitis (Acute) Urethritis (Acute) Dysuria (Acute) Cellulitis (Acute) Left foot pain (Acute) Plantar fasciitis of left foot (Acute) Surgical History Surgical History H/O aortic valve replacement Social History Social History Smoking Status: Current every day smoker Number of Years Smoked: 66 How many cigarettes a day do you smoke? (20 cigarettes=1 Pk): 20 Do you dip or chew tobacco?: No Marital Status: Support Person: No Relationship: Do you feel safe in your home environment?: Yes Suffered physical, verbal, emotional, or financial abuse?: No History of Abuse: No ETOH Use: Frequency: Occasional Substance Use: denies use Service: Yes POLST Patient has POLST: No Meds/Allgy Home Medications Ambulatory Orders Medication Instructions Recorded Confirmed Omeprazole 20 mg PO DAILY 02/09/2411/14 Tiotropium Br/Olodaterol Hcl 4 g IH UD 02/09/24 [Stiolto Respimat Inhaler (10)] albuterol sulfate 90 mcg/actuation 2 puff IH Q6HR 01/2101/23/25 breath activated powder inhaler (ProAir RespiClick) ascorbic acid (vitamin C) 1,000 mg 1,000 mg PO DAILY 0 02/09/24 01/23/25 tablet cyclobenzaprine 10 mg tablet 10 mg PO PRN PRN Spasms 0 02/09/24 01/23/25 docusate sodium 100 mg capsule 100 mg PO UD 02/09/24 0 01/23/25 (Stool Softener) empagliflozin 5 mg-metformin 1,000 1 ea PO BID 4 01/23/25 mg tablet (Synjardy) furosemide 40 mg tablet 80 mg PO UD 02/09/24 5 insulin regular human 100 unit/mL 10 unit subcut BID 0 02/09/24 01/23/25 injection solution (Humulin R Regular U-100 Insulin) metoprolol succinate 200 mg 50 mg PO BID 02/09/2411/14 tablet,extended release 24 hr (Toprol XL) nitroglycerin 0.4 mg sublingual 0.4 mg sublingual Q5MI N PRN 02/09/24 01/23/25 tablet Moderate Pain (Level 4-6) rosuvastatin 40 mg tablet (Crestor) 40 mg PO DAILY 01/23/25 semaglutide (weight loss) 0.5 1 mg SQ UD 02/09/2411/14 mg/0.5 mL subcutaneous pen injector (Wegovy) spironolactone 25 mg tablet 12.5 mg PO DAILY 02/09/24 01/23/25 (Aldactone) tamsulosin 0.4 mg capsule 2 cap PO DAILY PM 02/09/24 0 01/23/25 warfarin 2.5 mg tablet 5 mg PO UD 04/05/24 01/23/25 folic acid 1 mg tablet 1 mg PO QDAY #30 tabs 01/23/25 gabapentin 100 mg capsule 300 mg PO BID 09/22/2401/23 mupirocin 2 % topical ointment 1 applic topical BID 7 days #22 09/22/24 01/23/25 (Centany) grams abiraterone 250 mg tablet 1,000 mg (4 x 250 mg) PO QAM #120 10/19/24 01/23/25 tabs fluconazole 200 mg tablet 200 mg PO QDAY #14 tabs 05/2 09/1601/23/25 Allergies Allergies Allergy/AdvReac Type Severity Reaction Status Date / Time No Known Drug Allergies Allergy Verified 01/23/25 19:53 Exam Exam Vital Signs: Vital Signs x48h Temp Pulse Resp BP Pulse Ox 01/23/25 21:20 65 17 109/56 L 98 01/23/25 21:13 17 01/23/25 19:50 36.5 C 71 24 122/53 L 100 GEN: Alert and cooperative, no distress HEENT: atraumatic, normocephalic, MMM PULM: CTABL, reg rate and pattern, no distress CV: RRR, no edema GI: soft, nontender, nondistended, normoactive bowel sounds MSK: trace LE edema, MAEW SKIN: c/d/I NEURO: AOx4, no focal deficits Conclusion/Plan Problem List (1) Anemia: Qualifiers: Anemia type: unspecified type Qualified Code(s): D64.9 - Anemia, unspecified (2) Supratherapeutic INR: Plan #acute on chronic iron deficiency with #supratherapeutic INR -hold INR -trend INR -vitamin k po x1 -follow I&Os -CLD -transfuse to keep hgb >7 #htn #hld #cad #afib on coumadin -hold coumadin -trend labs -cont home meds otherwise -follow I&Os #T2DM -insulin orderset -accucheks The patient gave verbal consent to receive this telemedicine service, which I performed via live two-way audio/visual equipment. The patient is at [facility], and I am physically in [place]. Other participants include bedside nurse Lab Results Lab results reviewed: Yes 01/23/25 20:28 01/23/25 20:28
[2025-01-23 22:34] LABS: CALCIUM 8.8 mg/dL (8.5-10.3); CREATININE 0.9 mg/dL (0.6-1.3); POTASSIUM 5.1 mmol/L (3.5-4.5)
[2025-01-23] MEDS: PHYTONADIONE INJ (ADULT) 5 MG in SODIUM CHLORIDE 0.9% 50 ML SUBQ ONE (23:02)
[2025-01-23] MEDS: PHYTONADIONE 10 MG/ML AMP IVP STA (23:03)
[2025-01-23] MEDS: FLUCONAZOLE 100 MG TABLET PO SCH (23:25)
[2025-01-23] MEDS: FOLIC ACID 1 MG TABLET PO SCH (23:33)
[2025-01-23] MEDS: TAMSULOSIN 0.4 MG CAPSULE PO SCH (23:34)
[2025-01-24] MEDS: SODIUM CHLORIDE FLUSH 0.9% 10 ML SYRINGE IVP SCH (01:00)
[2025-01-24 06:16] LABS: BASOPHILS % (AUTO) 0.3 %; EOSINOPHILS # (AUTO) 0.1 10^3/uL (0.0-0.7); EOSINOPHILS % (AUTO) 0.8 %; LYMPHOCYTES # (AUTO) 2.3 10^3/uL (1.5-3.5); LYMPHOCYTES % (AUTO) 18.9 %; MEAN CORPUSCULAR HEMOGLOBIN 29.6 pg (27.0-31.0); MEAN CORPUSCULAR HGB CONC 30.7 g/dL (32.0-36.0); MEAN CORPUSCULAR VOLUME 96.6 fL (80.0-94.0); MEAN PLATELET VOLUME 9.8 fL (7.4-11.4); MONOCYTES # (AUTO) 0.6 10^3/uL (0.0-1.0); MONOCYTES % (AUTO) 4.9 %; NEUTROPHILS # (AUTO) 9.1 10^3/uL (1.5-6.6); NEUTROPHILS % (AUTO) 74.4 %; NRBC ABSOLUTE COUNT (AUTO) 0.04 x10^3/uL; NUCLEATED RED BLOOD CELLS AUTO 0.3 /100WBC; PLT - PLATELET COUNT 75 10^3/uL (130-450); RED BLOOD COUNT 2.06 10^6/uL (4.70-6.10); RED CELL DISTRIBUTION WIDTH 19.9 % (12.0-15.0); WHITE BLOOD COUNT 12.2 x10^3/uL (4.8-10.8)
[2025-01-24 06:24] LABS: HCT - HEMATOCRIT 19.9 % (42.0-52.0); HGB - HEMOGLOBIN 6.1 g/dL (14.0-18.0)
[2025-01-24 06:37] LABS: CALCIUM 8.5 mg/dL (8.5-10.3); CREATININE 0.9 mg/dL (0.6-1.3)
[2025-01-24] MEDS: PANTOPRAZOLE 40 MG TABLET PO SCH (07:00)
[2025-01-24 08:11] LABS: INR 2.9 (0.8-1.2); PT - PROTHROMBIN TIME 31.7 secs (9.9-12.6)
[2025-01-24] MEDS: ALBUTEROL NEB 2.5 MG/3 ML INH PRN (08:41)
[2025-01-24] MEDS ORDERED: NON FORMULARY MED (Rosuvastatin [Crestor] 40 MG tablet) PO SCH (09:00)
[2025-01-24] MEDS ORDERED: OMEPRAZOLE 20 MG PO SCH (09:00)
[2025-01-24] MEDS: METOPROLOL SUCCINATE 50 MG TABLET PO SCH (09:09)
[2025-01-24] MEDS: GABAPENTIN 300 MG CAPSULE PO SCH (09:09)
[2025-01-24] MEDS: SPIRONOLACTONE 25 MG TABLET PO SCH (09:09)
[2025-01-24] MEDS: ATORVASTATIN 40 MG TABLET PO SCH (09:09)
[2025-01-24] MEDS: ASCORBIC ACID 500 MG TABLET PO SCH (09:10)
[2025-01-24] MEDS: INSULIN LISPRO 300 UNIT/3 ML PEN SUBQ SCH (09:10)
[2025-01-24 12:03] VITALS: O2SAT 100
[2025-01-24 13:13] LABS: CALCIUM 8.7 mg/dL (8.5-10.3); CREATININE 0.9 mg/dL (0.6-1.3); POTASSIUM 4.6 mmol/L (3.5-4.5)
[2025-01-24 13:17] VITALS: BP 117/51; TEMP 98.6
--- NOTE | 2025-01-24 13:17 | Discharge Summary ---
Discharge Summary Admit Date: 01/23/25 Discharge Date: 01/24/25 Discharging Provider: Charlene Blake PA-C Primary Care Provider: Uriel Crystal MD Code Status: Attempt Resuscitation DIAGNOSES Discharge Diagnoses with Status of Each Condition: Severe anemia, requring blood transfusion, 2 u PRBCs Supratherapeutic INR Hypertension Hyperlipidemia Coronary artery disease status post aortic valve replacement, mechanical valve, on warfarin Type 2 diabetes mellitus HPI History of Present Illness: This is a 74 yo male with pmhx of htn, hld, cad, T2dm, afib on coumadin who presented with sob and fatigue and weakness. Pt states started antifungal about 2 weeks ago and had INR checked and was told to hold his coumadin for a day and then pt states began taking coumadin again per instructions. Pt noted INR was 5.1 and was told to hold for 2 doses and states day of presentation INR was unreadable and therefore pt presented to ER given this and symptoms. Pt denies any melena, brbr, no chest pain, no hematemesis. No hematochezia, no fevers or chills. HOSPITAL COURSE Hospital Course: 74-year-old male with mechanical aortic valve on Coumadin with supratherapeutic INR presented to the emergency department feeling weak and dizzy with a hemoglobin of 6.1. hx of anemia, seen at the [facility] and does get iron infusions. He had been recently placed on fluconazole for a fungal urinary tract infection. He was warned that he should keep an eye on his INR on this medication. He did have 1 bowel movement while he was here which was dark in nature. his hemoglogin responded appropriately to the 2 units of blood he was transfused. Colonscopy neg 11/2023, but 3 year repeat advised. He has esophageal varices on EGD 11/2023 h/o prostate cancer on Lupron. He was given Vit K on admit and his INR was 2.9 on dc. he was instructed to resume his normal dose of coumadin, and to stop fluconazole. His K was elevated at 5.0, stef 6 hours later was 4.6 without treatment. He takes spironolactone. I advised him to hold this for 3 days. also takes PRN lasix, advised him to use this should he feel the need to take a diuretic. He was counseled on smoking cessation, and he states that he has no interest in quitting. When I asked patient about his code status, and what would he want done if his heart were to stop, he told me that I should "sit down, have a cup of coffee and think about it". He does state that he would like to have CPR and is OK with intubation. He does not have a POLST, his oldest brother Boone would make his medical decisions if he were unable to do so. I would have preferred to keep this patient in house one additional night, but he was insistent upon discharge. recommended PCP followup in 7-10 d, heme onc followup as planned. Although I was able to complete his dc paperwork, it was rushed, and he was standing in his room fully dressed, walking out when I stopped him to licensed professional counselor him verbally regarding the things I had written down for him. I had seen the pt earlier in the day as he was getting his 2nd unit of blood, and had been able to discuss code status and start to licensed professional counselor him on medication management for dc. ALLERGIES Allergies Allergy/AdvReac Type Severity Reaction Status Date / Time fluconazole AdvReac Mild Unknown Verified 01/25/25 11:32 MEDICATIONS Ambulatory Orders Medication Instructions Recorded Confirmed albuterol sulfate 90 mcg/actuation 2 puff IH Q6HR PRN shortness of 02/09/24 01/24/25 breath activated powder inhaler breath or wheezing (ProAir RespiClick) ascorbic acid (vitamin C) 1,000 mg 1,000 mg PO DAILY 0 02/09/24 01/23/25 tablet docusate sodium 100 mg capsule 100 mg PO UD PRN consti pation 02/09/24 01/24/25 (Stool Softener) empagliflozin 5 mg-metformin 1,000 1 ea PO BID 4 01/23/25 mg tablet (Synjardy) furosemide 40 mg tablet 80 mg PO UD 02/09/24 5 metoprolol succinate 200 mg 50 mg PO BID 02/09/2411/14 tablet,extended release 24 hr (Toprol XL) nitroglycerin 0.4 mg sublingual 0.4 mg sublingual Q5MI N PRN 02/09/24 01/23/25 tablet Moderate Pain (Level 4-6) rosuvastatin 40 mg tablet (Crestor) 40 mg PO DAILY 01/23/25 semaglutide (weight loss) 0.5 1 mg SQ UD 02/09/24 06/25 mg/0.5 mL subcutaneous pen injector (Wegovy) spironolactone 25 mg tablet 12.5 mg PO DAILY 02/09/24 01/23/25 (Aldactone) Held on 01/24/25. Instructions: Resume on 01/27/25. hold for 3 days due to elevated potassium tamsulosin 0.4 mg capsule 0.4 mg PO DAILY PM 02/09/24 01/24/25 warfarin 2.5 mg tablet 5 mg PO UD 04/05/24 01/24/25 folic acid 1 mg tablet 1 mg PO QDAY #30 tabs 01/23/25 abiraterone 500 mg tablet 1,000 mg PO DAILY 01/24/25 0 01/24/25 gabapentin 300 mg capsule 300 mg PO BID 01/24/2501/24 insulin regular hum U-500 conc 500 45 unit subcut BID 01/24/25 01/24/25 unit/mL(3 mL) subcut pen (Humulin R U-500 (Conc) Insulin Kwikpen) losartan 25 mg tablet 12.5 mg PO DAILY 01/24/25 mupirocin 2 % topical ointment 1 applic topical BID W[place] N wound care 01/24/25 01/24/25 (Centany) omeprazole 20 mg capsule,delayed 20 mg PO DAILY 01/24/25 release prednisone 5 mg tablet 5 mg PO DAILY 01/24/2501/24 tiotropium 2.5 mcg-olodaterol 2.5 2 puff inhalation DA GODWIN 01/24/25 01/24/25 mcg/actuation mist for inhalation (Stiolto Respimat) PHYSICAL EXAM AT DISCHARGE Vital Signs: Vital Signs x48h Temp Pulse Resp BP Pulse Ox 01/24/25 13:00 37.0 C 72 16 117/51 L 100 01/24/25 12:02 37.1 C 18 106/57 L 100 General Appearance: positive No acute distress and Alert Eyes Bilateral: positive Normal inspection ENT: positive ENT inspection nml Neck: positive Nml inspection Respiratory: positive No respiratory distress and Breath sounds nml Cardiovascular: positive Regular rate & rhythm Abdomen: positive Non-tender and No distention Skin: positive Color nml Extremities: positive No pedal edema Neurologic/Psychiatric: positive Oriented x3 LABS 01/24/25 12:34 01/24/25 12:34 FOLLOW UP Follow Up: PCP Uriel Crystal, 7-10 d oncology as planned. TIME SPENT Time Spent in Discharge (Minutes): 45 Discharge Plan Discharge Patient Disposition: Home, Self Care Prescriptions: Continued folic acid 1 mg tablet 1 mg PO QDAY Qty: 30 2RF ProAir RespiClick 90 MCG aerosol powdr breath activated 2 puff IH Q6HR PRN (Reason: shortness of breath or wheezing) furosemide 40 MG tablet 80 mg PO UD Patient Comments: Taking 80 mg every other day ascorbic acid (vitamin C) 1,000 MG tablet 1,000 mg PO DAILY metoprolol succinate [Toprol XL] 200 MG tablet extended release 24 hr 50 mg PO BID Rx Instructions: 50 mg AM/25 mg PM tamsulosin 0.4 MG capsule 0.4 mg PO DAILY PM Patient Comments: Patient states only taking 1 cap (0.4mg) every night nitroglycerin 0.4 MG tablet, sublingual 0.4 mg sublingual Q5MIN PRN (Reason: Moderate Pain (Level 4-6)) docusate sodium [Stool Softener] 100 MG capsule 100 mg PO UD PRN (Reason: constipation) rosuvastatin [Crestor] 40 MG tablet 40 mg PO DAILY Synjardy 1 EACH tablet 1 ea PO BID Wegovy 0.5 MG/0.5 ML pen injector 1 mg SQ UD Patient Comments: Wednesday warfarin 2.5 MG tablet 5 mg PO UD Rx Instructions: 4 times/week prednisone 5 mg tablet 5 mg PO DAILY losartan 25 mg tablet 12.5 mg PO DAILY Patient Comments: TAKE 1/2 TABLET BY MOUTH DAILY abiraterone 500 mg tablet 1,000 mg PO DAILY gabapentin 300 mg capsule 300 mg PO BID omeprazole 20 mg capsule,delayed release(DR/EC) 20 mg PO DAILY Stiolto Respimat 2.5-2.5 mcg/actuation mist 2 puff inhalation DAILY mupirocin [Centany] 2 % ointment 1 applic topical BID PRN (Reason: wound care) Held spironolactone [Aldactone] 25 MG tablet 12.5 mg PO DAILY Hold Instructions: Resume on 06/07/25. hold for 3 days due to elevated potassium No Action Humulin R U-500 (Conc) Kwikpen 500 unit/mL (3 mL) insulin pen 45 unit subcut BID Interventions: Belongings Inventory Last Done: 01/24/25 09:24 Discharge Last Done: 01/24/25 13:37 Discharge Checklist - Nursing Last Done: 01/24/25 13:37 Health Concerns: You came into the hospital because you were feeling weak and dizzy. Your blood count was very low at 6.1. You have gotten 2 units of blood and your blood count is up to 7.6. You will still feel tired but this may help you feel a little bit better. You had a dark bowel movement. This could be because you are bleeding from your GI tract. We could probably attribute this to the fact that your INR was also quite elevated due to the fluconazole medication. Your INR is back down within a reasonable range. 2.9 this morning. I think that you will probably be fine but you need to look out for dark black tarry sticky stools. Of course we would prefer that you stay in the hospital for another few hours but you are insistent upon leaving. Your INR is 2.9 this morning. I would have it checked again in several days. We gave you some vitamin K which will help counteract the effects of the fluconazole but these medications all hang around for a while so your INR may be a little bit difficult to control for a period of time. I want you to resume your previous INR dosing. Additionally you had elevated potassium while you were here in the hospital. This could be due to your spironolactone. I want you to stop taking this for 3 days. If you are having problems with edema go ahead and use the Lasix that she normally uses this will bring your potassium down. Upon discharge your potassium is 4.6. This is just above the normal range. Print Language: Dominican Patient Instructions: Anemia Follow-up Care: Uriel Crystal MD [Primary Care Provider] -
[2025-01-25] MEDS ORDERED: ABIRATERONE 500 MG PO SCH (07:00)
[2025-01-25] MEDS ORDERED: FUROSEMIDE 40 MG TABLET PO SCH (09:00)
== END 2025-01-24 13:35 | disposition home or self-care (01) ==
LOC: ED 19:46 → MS3 19:46
PROVIDERS: ADMIT Internal Medicine; ATTEND Internal Medicine
DX: Z95.2 Presence of prosthetic heart valve; Z79.899 Other long term (current) drug therapy; E87.5 Hyperkalemia; E11.9 Type 2 diabetes mellitus without complications; R19.5 Other fecal abnormalities; I25.10 Atherosclerotic heart disease of native coronary artery without angina pectoris; F17.210 Nicotine dependence, cigarettes, uncomplicated; Z79.4 Long term (current) use of insulin; D68.9 Coagulation defect, unspecified; I48.91 Unspecified atrial fibrillation; Z79.85 Long-term (current) use of injectable non-insulin antidiabetic drugs; R06.02 Shortness of breath; I10 Essential (primary) hypertension; Z79.01 Long term (current) use of anticoagulants; E78.5 Hyperlipidemia, unspecified; D50.9 Iron deficiency anemia, unspecified

== ENCOUNTER 2025-08-13 06:42 | Inpatient (IN) ==
--- NOTE | 2025-08-13 06:58 | ED Physician Documentation ---
PD HPI SYNCOPE Stated complaint Stated Complaint: FALL/WEAKNESS Chief complaint Chief Complaint: Trauma Hd/Nk History obtained from History obtained from: Patient and EMS (The patient's son called EMS, as he found the patient crumpled against the wall less responsive. Presumed fell but patient is not clear on fall or not. He is on Coumadin and some abrasion on his forehead. Otherwise he states he has been feeling weak the last week with some cough.) History of Present Illness Timing - onset: How many days ago (he states he has felt weaker for the past week or so, with some congestion and cough. This morning, feeling weak and does not remember falling by bed. ) Duration: Unknown Preceding symptoms: Light headed and Generalized weakness Associated symptoms: No Nausea / vomiting or Abdominal pain Contributing factors: Just stood up and None; No Recent med change Meds/Allgy Home Medications Ambulatory Orders Medication Instructions Recorded Confirmed albuterol sulfate 90 mcg/actuation 2 puff IH Q6HR PRN shortness of 02/09/24 breath activated powder inhaler breath or wheezing (ProAir RespiClick) ascorbic acid (vitamin C) 1,000 mg 1,000 mg PO DAILY 0 02/09/24 06/07/25 tablet docusate sodium 100 mg capsule 100 mg PO UD PRN consti pation 02/09/24 06/07/25 (Stool Softener) empagliflozin 5 mg-metformin 1,000 1 ea PO BID 4 06/07/25 mg tablet (Synjardy) furosemide 40 mg tablet 80 mg PO UD 02/09/24 5 metoprolol succinate 200 mg 50 mg PO BID 02/09/2405/23 tablet,extended release 24 hr (Toprol XL) nitroglycerin 0.4 mg sublingual 0.4 mg sublingual Q5MI N PRN 02/09/24 06/07/25 tablet Moderate Pain (Level 4-6) rosuvastatin 40 mg tablet (Crestor) 40 mg PO DAILY 06/07/25 semaglutide (weight loss) 0.5 1 mg SQ UD 02/09/2405/23 mg/0.5 mL subcutaneous pen injector (Wegovy) spironolactone 25 mg tablet 12.5 mg PO DAILY 02/09/24 06/07/25 (Aldactone) Held on 01/24/25. Instructions: Resume on 01/27/25. hold for 3 days due to elevated potassium tamsulosin 0.4 mg capsule 0.4 mg PO DAILY PM 02/09/24 06/07/25 warfarin 2.5 mg tablet 5 mg PO UD 04/05/24 06/07/25 insulin regular hum U-500 conc 500 45 unit subcut BID 01/24/25 06/07/25 unit/mL(3 mL) subcut pen (Humulin R U-500 (Conc) Insulin Kwikpen) mupirocin 2 % topical ointment 1 applic topical BID UT N wound care 01/24/25 06/07/25 (Centany) omeprazole 20 mg capsule,delayed 20 mg PO DAILY 06/07/25 release tiotropium 2.5 mcg-olodaterol 2.5 2 puff inhalation DA GODWIN 01/24/25 06/07/25 mcg/actuation mist for inhalation (Stiolto Respimat) abiraterone 500 mg tablet 1,000 mg (2 x 500 mg) PO YAN LY #60 02/02/25 06/07/25 tabs cephalexin 500 mg capsule 500 mg PO Q12H #20 caps 05/2306/07/25 folic acid 1 mg tablet 1 mg PO QDAY #90 tabs prednisone 5 mg tablet 5 mg PO DAILY #90 tabs 07/1207/12/25 Allergies Allergies Allergy/AdvReac Type Severity Reaction Status Date / Time fluconazole AdvReac Mild Unknown Verified 08/13/25 06:53 PFSH Active Problems All Active Problems (Updated 08/13/25 @ 08:46 by Jorje Ramirez MD) Pneumonia (Acute) Sepsis (Acute) Syncope (Acute) Injury of head and neck (Acute) Cellulitis of left ankle (Acute) Encounter for antineoplastic chemotherapy (Acute) Anemia (Acute) Urinary urgency (Acute) Left leg swelling (Acute) Pulmonary nodule, right (Acute) Wound of right lower extremity (Acute) Thrombocytopenia (Acute) Iron deficiency anemia (Acute) Healthcare maintenance (Acute) Recurrent prostate cancer (Acute) Upper respiratory infection (Acute) Strain of chest wall (Acute) Lymphadenopathy (Acute) Prostatitis (Acute) Urethritis (Acute) Dysuria (Acute) Cellulitis (Acute) Left foot pain (Acute) Plantar fasciitis of left foot (Acute) Medical History Medical History (Updated 08/13/25 @ 08:46 by Jorje Ramirez MD) Afib CVA (cerebral vascular accident) Diabetes HTN (hypertension) Hypertension Surgical History Surgical History H/O aortic valve replacement Social History Social History Smoking Status: Current every day smoker Number of Years Smoked: 60 How many cigarettes a day do you smoke? (20 cigarettes=1 Pk): 40 Second hand tobacco smoke exposure: Yes Do you dip or chew tobacco?: No Do you vape?: No Patient requests smoking cessation consult: No Initiate information on smoking cessation: No Marital Status: Support Person: No Level: Independent Do you feel safe in your home environment?: Yes History of physical, verbal, emotional, or financial abuse?: No ETOH Use: Frequency: Occasional Substance Use: denies use Service: Yes POLST Patient has POLST: No Exam Exam Vital Signs: Vital Signs x48h Temp Pulse Resp BP Pulse Ox 08/13/25 08:45 70 16 103/56 L 89 L 08/13/25 07:20 38.3 C H 70 16 114/48 L 94 08/13/25 06:45 37.7 C 70 16 114/57 L 93 Constitutional abnormal general appearance (disheveled) and (chronically ill), no apparent distress and average body habitus HENMT head/scalp traumatic (abrasion) (Right forehead) Neck/C-Spine cervical spine nontender, cervical full ROM noted and supple Lymph no lymphadenopathy noted Chest inspection of chest abnormal (Pacemaker noted on the left chest wall.) and palpation of chest normal Respiratory normal respiratory effort, auscultation abnormal (bronchial breath sounds), wheezing noted (scattered wheezes) and rales noted (base) Cardiovascular regular rhythm noted and no edema Gastrointestinal abdomen soft to palpation and nontender to palpation Back/Pelvis no thoracic spine tenderness and no lumbar spine tenderness Extremities no tenderness and full ROM Neurology no focal motor deficit noted, no sensory deficits noted and speech normal Psychiatry mental status abnormal, thought process abnormality noted (confused), cooperative and affect normal Skin skin color normal and no rash Results Vitals Vitals: Vital Signs - 24 hr 08/13/25 06:45 08/13/25 07:20 08/13/25 08:45 Temperature 37.7 C 38.3 C H Temperature Source Temporal Artery Scan Temporal Artery Scan Pulse Rate 70 70 70 Respiratory Rate 16 16 16 Blood Pressure 114/57 L 114/48 L 103/56 L O2 Saturation 93 94 89 L O2 Source Room air Room air Room air Pain Intensity 0 0 0 Oxygen O2 Source Room air Labs Labs: Laboratory Tests 08/13/25 08/13/25 08/13/25 06:55 07:02 07:30 WBC 24.0 H RBC 5.35 Hgb 14.2 Hct 45.3 MCV 84.7 MCH 26.5 L MCHC 31.3 L RDW 19.3 H Plt Count 87 L MPV 10.0 Neut # (Auto) Not Reportable Lymph # (Auto) Not Reportable [place] # (Auto) Not Reportable Eos # (Auto) Not Reportable Baso # (Auto) Not Reportable Absolute Nucleated RBC Not Reportable Total Counted 100 Band Neuts % (Manual) 15 H Reactive Lymphs % (Man) 1 Abnorm Lymph % (Manual) 0 Metamyelocytes % 2 H Nucleated RBC % Not Reportable Neutrophils # (Manual) 21.8 H Lymphocytes # (Manual) 1.4 L Monocytes # (Manual) 0.2 Eosinophils # (Manual) 0.0 Basophils # (Manual) 0.0 Differential Comment MANUAL DIFFERENTIAL Platelet Estimate DECREASED (<130,000) RBC Morph Micro Appear 4+ ANISOCYTOSIS PT 23.1 H INR 2.1 H Sodium 140 Potassium 3.6 Chloride 104 Carbon Dioxide 24 Anion Gap 12.0 BUN 28 H Creatinine 1.1 Estimated GFR (MDRD) 65 L Glucose 148 H Lactic Acid 3.7 H* Calcium 10.0 Magnesium 1.8 Total Bilirubin 1.2 H AST 39 ALT 24 Alkaline Phosphatase 78 Troponin I High Sens 10.5 Total Protein 6.3 L Albumin 4.4 Globulin 1.9 L Albumin/Globulin Ratio 2.3 H Lipase 31 Procalcitonin Immunoas 20.26 H* Nasal Adenovirus (PCR) DETECTED A Nasal B. parapertussis DNA (PCR) NOT DETECTED Nasal Coronavir 229E PCR NOT DETECTED Nasal Coronavir HKU1 PCR NOT DETECTED Nasal Coronavir NL63 PCR NOT DETECTED Nasal Coronavir OC43 PCR NOT DETECTED Nasal Enterovir/Rhinovir PCR NOT DETECTED Nasal Influenza B PCR NOT DETECTED Nasal Influenza A PCR NOT DETECTED Nasal Parainfluen 1 PCR NOT DETECTED Nasal Parainfluen 2 PCR NOT DETECTED Nasal Parainfluen 3 PCR NOT DETECTED Nasal Parainfluen 4 PCR NOT DETECTED Nasal RSV (PCR) NOT DETECTED Nasal B.pertussis DNA PCR NOT DETECTED Nasal C.pneumoniae (PCR) NOT DETECTED Jj Human Metapneumo PCR NOT DETECTED Nasal M.pneumoniae (PCR) NOT DETECTED Nasal SARS-CoV-2 (PCR) NOT DETECTED Rads (name of study) head CT: Relevant Findings:: Final report received Interpretation: EXAM: [id number] CT/HEADWO ([id number]) PROCEDURE: CT Head WO INDICATIONS: fall, on coumadin, alert and no MANDUJANO TECHNIQUE: CT of the head was performed, without intravenous contrast. Reformats: Coronal and sagittal. For radiation dose reduction, the following was used: automated exposure control, adjustment of mA and/or kV according to patient size. COMPARISON: 03/30/2023 FINDINGS: Image quality: Diagnostic. CSF spaces: Basal cisterns are patent. No extra-axial fluid collections. V entricles are normal in size and shape. Brain: No midline shift. No intracranial mass effect or hemorrhage. Nevarez- white matter interface is normal. Age appropriate volume loss and periventricul ar white matter hypoattenuation, likely chronic ischemic change. Skull and face: Calvarium and visualized facial bones are intact, without suspicious lesions. Sinuses: Visualized sinuses and mastoids are clear. IMPRESSION: No acute intracranial pathology. Reviewed by: Raleigh Anton MD on 08/13/2025 7:[address]: Relevant Findings:: Final report received Interpretation: EXAM: [id number] CT/CSPWO ([id number]) PROCEDURE: CT Cervical Spine WO INDICATIONS: fall/syncope, struck head TECHNIQUE: Noncontrast images acquired from the skull base to the T4 level. Sagittal and coronal reformats were then constructed. For radiation dose reduction, the following was used: automated exposure control, adjustment of mA and/or kV according to patient size. COMPARISON: None. FINDINGS: Image quality: Excellent. Bones: No fractures or dislocations. Severe cervical spondylosis. Multilevel disc height loss and prominent posterior disc osteophyte complexes and uncovertebral joint hypertrophy. There is multilevel canal stenosis spanning from C4-C5 through C6-C7. It is likely moderate to severe at C6-C7. There is multilevel bilateral bony foraminal narrowing. There is prominent left facet hypertrophy at C2-C3 and C3-C4. Visualized superior ribs are intact. Soft tissues: Prevertebral soft tissues are normal in thickness. No paravertebral hematomas. No apical pneumothoraxes. IMPRESSION: No acute, displaced fracture or traumatic subluxation. Severe cervical spondylosis with multilevel canal stenosis and foraminal stenosis. Reviewed by: Raleigh Anton MD on 08/13/2025 7:50 AM [facility] chest xray: Relevant Findings:: Final report received and EMP independent interpretation of test Interpretation: EXAM: [id number] XR/CXR1VW ([id number]) PROCEDURE: XR Chest 1V INDICATIONS: weakness, some recent cough TECHNIQUE: One view of the chest was acquired. COMPARISON: 02/18/2025 FINDINGS: Surgical changes and devices: Pacemaker, TAPVR. Lungs and pleura: No pleural effusions or pneumothorax. Mild patchy bibasilar atelectasis, left greater than right.. Mediastinum: Mediastinal contours appear normal. Heart size is normal. Bones and chest wall: No suspicious bony lesions. Overlying soft tissues appear unremarkable. IMPRESSION: Mild patchy bibasilar atelectasis, left greater than right. Reviewed by: Raleigh Anton MD on 08/13/2025 7:54 AM [facility] PD Medical Decision Making ED course Complexity details: considered differential (likely syncope/fall with some abrasion on head, on DOAC. Will get head and neck CT. However, leaves the issue of why weakness and URI symptoms. Concern for pneumonia, flu-like illness, lytes abnormality, among other things. ) and d/w patient (The patient is awake and conversant. He does display a general weakness with difficulty sitting forward on his own. It does not really remember how he got up against the wall.) ED course: The patient's son called EMS, as he found the patient crumpled against the wall less responsive. Presumed fell but patient is not clear on fall or not. He is on Coumadin and some abrasion on his forehead. Otherwise he states he has been feeling weak the last week with some cough. No fever or chills. No vomiting or diarrhea. He denies currently any headache, chest pain, abdominal pain. He denies any blood or melena in his stool recently. No recent change in medicines. Discharge Plan Discharge Patient Disposition: 64 [facility] DC/Xfer Condition: Stable Clinical Impression: Injury of head and neck, Syncope, Sepsis Prescriptions: No Action abiraterone 500 mg tablet 1,000 mg PO DAILY Qty: 60 4RF folic acid 1 mg tablet 1 mg PO QDAY Qty: 90 2RF ProAir RespiClick 90 MCG aerosol powdr breath activated 2 puff IH Q6HR PRN (Reason: shortness of breath or wheezing) furosemide 40 MG tablet 80 mg PO UD Patient Comments: Taking 80 mg every other day ascorbic acid (vitamin C) 1,000 MG tablet 1,000 mg PO DAILY metoprolol succinate [Toprol XL] 200 MG tablet extended release 24 hr 50 mg PO BID Rx Instructions: 50 mg AM/25 mg PM spironolactone [Aldactone] 25 MG tablet 12.5 mg PO DAILY tamsulosin 0.4 MG capsule 0.4 mg PO DAILY PM Patient Comments: Patient states only taking 1 cap (0.4mg) every night nitroglycerin 0.4 MG tablet, sublingual 0.4 mg sublingual Q5MIN PRN (Reason: Moderate Pain (Level 4-6)) docusate sodium [Stool Softener] 100 MG capsule 100 mg PO UD PRN (Reason: constipation) rosuvastatin [Crestor] 40 MG tablet 40 mg PO DAILY Synjardy 1 EACH tablet 1 ea PO BID Wegovy 0.5 MG/0.5 ML pen injector 1 mg SQ UD Patient Comments: Wednesday warfarin 2.5 MG tablet 5 mg PO UD Rx Instructions: 4 times/week omeprazole 20 mg capsule,delayed release(DR/EC) 20 mg PO DAILY Stiolto Respimat 2.5-2.5 mcg/actuation mist 2 puff inhalation DAILY mupirocin [Centany] 2 % ointment 1 applic topical BID PRN (Reason: wound care) Humulin R U-500 (Conc) Kwikpen 500 unit/mL (3 mL) insulin pen 45 unit subcut BID prednisone 5 mg tablet 5 mg PO DAILY Qty: 90 2RF cephalexin 500 mg capsule 500 mg PO Q12H Qty: 20 0RF Print Language: Liberian
--- OUTSIDE RECORDS SUMMARY | 2025-08-13 06:58 | EXTERNAL MEDICAL SUMMARY RPT | Continuity of Care Document ---
Author Organization [facility] Address [address] [place] [id number] Phone Allergies and Intolerances date description facility reaction severity 2025-02-18 10:00 [id number]^fluconazo le^^flucon azole^^allergy.id [facility] Unknown (no severity) 2025-05-10 10:00 [id number]^fluconazo le^^flucon azole^^allergy.id [facility] Unknown (no severity) 2025-06-07 10:00 [id number]^fluconazo le^^flucon azole^^allergy.id [facility] Unknown (no severity) Problems date description facility 2025-05-31 11:58 Malignant neoplasm of prostate [facility] 2025-05-31 11:58 [facility], [facility]speci [facility]ied [facility] 2025-05-31 11:58 [facility] 2025-05-31 12:00 Malignant neoplasm of prostate [facility] 2025-05-31 12:00 Iron deficiency anemia, unspeci fied [facility] 2025-05-31 12:00 [facility]ination [facility] 2025-05-31 12:35 Malignant neoplasm of prostate [facility] 2025-05-31 12:35 Iron deficiency anemia, unspeci fied [facility] 2025-05-31 12:35 Urgency of urination [facility] 2025-05-31 13:43 Cellulitis of left lower limb [facility] 2025-05-31 13:43 Other specified soft tissue dis orders [facility] 2025-05-31 13:52 [facility] 2025-05-31 13:52 Iron deficiency anemia, unspeci fied [facility] 2025-05-31 13:52 Urgency of urination [facility] 2025-05-31 14:01 [facility]ignant [facility] prostate [facility] 2025-05-31 14:01 Iron deficiency anemia, unspeci fied [facility] 2025-05-31 14:01 Urgency of urination [facility] 2025-06-01 00:04 Malignant neoplasm of prostate [facility] 2025-06-01 00:04 Iron deficiency anemia, unspeci fied [facility] 2025-06-01 11:02 Cellulitis of left lower limb I [facility] 2025-06-01 11:02 Other specified soft tissue dis [facility] 2025-06-04 13:08 Malignant neoplasm of prostate [facility] 2025-06-07 14:13 Essential (primary) hypertensio n [facility] 2025-06-07 14:13 Cellulitis of left lower limb [facility] 2025-06-07 14:13 Cellulitis of unspecified part of limb [facility] 2025-07-03 10:28 Malignant neoplasm of prostate [facility] 2025-07-03 10:28 Iron deficiency anemia, unspeci fied [facility] 2025-07-03 10:28 Urgency of urination [facility] 2025-07-10 13:45 Malignant neoplasm of prostate [facility] 2025-07-10 13:45 Iron deficiency anemia, [facility] 2025-07-10 13:45 Urgency of urination [facility] 2025-07-12 10:51 Malignant neoplasm of prostate [facility] 2025-07-12 10:51 Iron deficiency anemia, unspeci fied [facility] 2025-07-12 10:51 Urgency of urination [facility]ana[facility]belima [facility] 2025-07-12 11:25 Malignant neoplasm of prostate [facility] 2025-07-12 11:25 Iron deficiency anemia, unspeci fied [facility] 2025-07-12 11:25 Urgency of urination [facility]bel[facility] 2025-07-12 12:50 Malignant neoplasm of prostate [facility] 2025-07-12 12:50 Iron deficiency anemia, unspeci fied [facility] 2025-07-12 12:50 Urgency of urination Joanaidbelima [facility] 2025-07-12 12:58 Malignant neoplasm of prostate [facility] 2025-07-12 12:58 Iron deficiency anemia, unspeci fied [facility] 2025-07-12 12:58 Urgency of urination [facility] 2025-07-17 11:26 [facility] Results/Labs test date facility value unit notes Result panel 1 NUCLEATED RED BLOOD CELLS AUTO 2025-05-31 11:34 [facility] 0.0 /100wbc (missing) BASOPHILS # (AUTO) 2025-05-31 11:34 [facility] 0.0 10 3/ul (missing) NRBC ABSOLUTE COUNT (AUTO) 2025-05-31 11:34 [facility] 0.00 x10 3/ul (missing) PSA TOTAL 2025-05-31 11:34 [facility] 0.072 ng/ml [facility] uses a WHO cutoff value of 2.0 ng/mL. EOSINOPHILS # (AUTO) 2025-05-31 11:34 [facility] 0.1 10 3/ul (missing) MONOCYTES # (AUTO) 2025-05-31 11:34 [facility] 0.5 10 3/ul (missing) BILIRUBIN,TOTAL 2025-05-31 11:34 [facility] 0.5 mg/dl As of February 2023 testing method has changed, this may include reference ranges. CREATININE 2025-05-31 11:34 [facility] 0.8 mg/dl As of February 2023 testing method has changed, this may include reference ranges. LYMPHOCYTES # (AUTO) 2025-05-31 11:34 [facility] 1.7 10 3/ul (missing) ALBUMIN/GLOBULIN RATIO 2025-05-31 11:34 [facility] 1.9 (missing) (missing) CHLORIDE 2025-05-31 11:34 [facility] 103 mmol/l As of February 2023 testing method has changed, this may include reference ranges. HGB - HEMOGLOBIN 2025-05-31 11:34 [facility] 11.4 g/dl (missing) SODIUM 2025-05-31 11:34 [facility] 137 mmol/l Unknown BUN - BLOOD UREA NITROGEN 2025-05-31 11:34 [facility] 14 mg/dl As of February 2023 testing method has changed, this may include reference ranges. ALT ALANINE AMINOTRANSFERASE 2025-05-31 11:34 [facility] 15 iu/l As of February 2023 testing method has changed, this may include reference ranges. GLUCOSE 2025-05-31 11:34 [facility] 151 mg/dl As of February 2023 testing method has changed, this may include reference ranges. AST ASPARTATE AMINOTRANSFERASE 2025-05-31 11:34 [facility] 17 iu/l As of February 2023 testing method has changed, this may include reference ranges. GLOBULIN 2025-05-31 11:34 [facility] 2.3 g/dl (missing) RED CELL DISTRIBUTION WIDTH 2025-05-31 11:34 [facility] 21.1 % (missing) MEAN CORPUSCULAR HEMOGLOBIN 2025-05-31 11:34 [facility] 25.3 pg (missing) TRANSFERRIN 2025-05-31 11:34 [facility] 268 mg/dl As of February 2023 testing method has changed, this may include reference ranges. CARBON DIOXIDE - CO2 2025-05-31 11:34 [facility] 28 mmol/l As of February 2023 testing method has changed, this may include reference ranges. MEAN CORPUSCULAR HGB CONC 2025-05-31 11:34 [facility] 29.8 g/dl (missing) POTASSIUM 2025-05-31 11:34 [facility] 3.6 mmol/l As of February 2023 testing method has changed, this may include reference ranges. IRON 2025-05-31 11:34 [facility] 32 ug/dl As of February 2023 testing method has changed, this may include reference ranges. TOTAL IRON BINDING CAPACITY 2025-05-31 11:34 [facility] 375 ug/dl (missing) HCT - HEMATOCRIT 2025-05-31 11:34 [facility] 38.2 % (missing) ALBUMIN 2025-05-31 11:34 [facility] 4.4 g/dl As of February 2023 testing method has changed, this may include reference ranges. RED BLOOD COUNT 2025-05-31 11:34 [facility] 4.51 10 6/ul (missing) NEUTROPHILS # (AUTO) 2025-05-31 11:34 [employer] 5.9 10 3/ul (missing) ANION GAP 2025-05-31 11:34 [facility] 6.0 (missing) (missing) TOTAL PROTEIN 2025-05-31 11:34 [facility] 6.7 g/dl As of February 2023 testing method has changed, this may include reference ranges. FERRITIN 2025-05-31 11:34 [facility] 68.9 ng/ml (missing) ALKALINE PHOSPHATASE 2025-05-31 11:34 [facility] 79 iu/l As of February 2023 testing method has changed, this may include reference ranges. WHITE BLOOD COUNT 2025-05-31 11:34 [facility] 8.2 x10 3/ul (missing) MEAN CORPUSCULAR VOLUME 2025-05-31 11:34 [facility] 84.7 fl (missing) % IRON SATURATION 2025-05-31 11:34 [facility] 9 % (missing) CALCIUM 2025-05-31 11:34 [facility] 9.6 mg/dl As of February 2023 testing method has changed, this may include reference ranges. PLT - PLATELET COUNT 2025-05-31 11:34 [facility] 91 10 3/ul (missing) GFR - MDRD 2025-05-31 11:34 [facility] 94 (missing) The IDMS-traceable MDRD Study Equation has been validated extensively in and populations between the ages of 18 and 70 with impaired kidney function (eGFR < 60 mL/min/1.73m2) and has shown good performance for patients with all common causes of kidney disease. Although this equation has not been validated for patients older than 70, an MDRD-derived eGFR may still be a useful tool for providers caring for patients older than 70. References: http://www.nkdep.n ih.gov/lab-evaluat ion/gfr/creatinine -stand ardization, last updated October 2011. Result panel 2 NUCLEATED RED BLOOD CELLS AUTO 2025-07-10 14:00 [facility] 0.0 /100wbc (missing) BASOPHILS # (AUTO) 2025-07-10 14:00 [facility] 0.0 10 3/ul (missing) EOSINOPHILS # (AUTO) 2025-07-10 14:00 [facility] 0.0 10 3/ul (missing) NRBC ABSOLUTE COUNT (AUTO) 2025-07-10 14:00 [facility] 0.00 x10 3/ul (missing) MONOCYTES # (AUTO) 2025-07-10 14:00 [facility] 0.8 10 3/ul (missing) LYMPHOCYTES # (AUTO) 2025-07-10 14:00 [facility] 0.8 10 3/ul (missing) NEUTROPHILS # (AUTO) 2025-07-10 14:00 [facility] 10.3 10 3/ul (missing) PLT - PLATELET COUNT 2025-07-10 14:00 [facility] 118 10 3/ul (missing) WHITE BLOOD COUNT 2025-07-10 14:00 [facility] 12.0 x10 3/ul (missing) HGB - HEMOGLOBIN 2025-07-10 14:00 [facility] 13.4 g /dl (missing) IRON 2025-07-10 14:00 [facility] 18 ug/dl As of February 2023 testing method has changed, this may include reference ranges. RED CELL DISTRIBUTION WIDTH 2025-07-10 14:00 [facility] 19.2 % (missing) TRANSFERRIN 2025-07-10 14:00 [facility] 202 mg/dl As of February 2023 testing method has changed, this may include reference ranges. FERRITIN 2025-07-10 14:00 [facility] 256.5 ng/ml (missing) MEAN CORPUSCULAR HEMOGLOBIN 2025-07-10 14:00 [facility] 26.2 pg (missing) TOTAL IRON BINDING CAPACITY 2025-07-10 14:00 [facility] 283 ug/dl (missing) MEAN CORPUSCULAR HGB CONC 2025-07-10 14:00 [facility] 31.2 g/dl (missing) HCT - HEMATOCRIT 2025-07-10 14:00 [facility] 43.0 % (missing) RED BLOOD COUNT 2025-07-10 14:00 [facility] 5.11 10 6/ul (missing) % IRON SATURATION 2025-07-10 14:00 [facility] 6 % (missing) MEAN CORPUSCULAR VOLUME 2025-07-10 14:00 [facility] 84.1 fl (missing) MEAN PLATELET VOLUME 2025-07-10 14:00 [facility] 9.9 fl (missing) Social History date description facility
[2025-08-13 07:08] LABS: INR 2.1 (0.8-1.2); PT - PROTHROMBIN TIME 23.1 secs (9.9-12.6)
[2025-08-13 07:11] LABS: HCT - HEMATOCRIT 45.3 % (42.0-52.0); HGB - HEMOGLOBIN 14.2 g/dL (14.0-18.0); MEAN PLATELET VOLUME 10.0 fL (7.4-11.4); PLT - PLATELET COUNT 87 10^3/uL (130-450); RED CELL DISTRIBUTION WIDTH 19.3 % (12.0-15.0)
--- NOTE | 2025-08-13 07:11 | ED Physician Documentation ---
ED Addendum Addendum Addendum: S/O from Dr Menard at 0700 Poss syncope, amnestic, found down by son. Twelve-lead EKG done at 0701 independently interpreted by me demonstrating atrial fibrillation with left bundle branch block, single PVC on rhythm strip, Initial blood work notable for significant leukocytosis to 24,000 with 15% bandemia. He has kind of a soft blood pressure with low diastolic. This is worrisome for sepsis, source not clear but will obtain urinalysis and chest x- ray. I think it is reasonable to give him some presumptive broad-spectrum antibiotics and cefepime ordered at 7:51 AM. Otherwise he is noted to have thrombocytopenia which looks chronic looking at old labs, INR 2.1 and he is anticoagulated. Relatively unremarkable CMP. CT of the head and cervical spine demonstrate no acute changes, chest x-ray read as patchy bibasilar atelectasis, I do wonder if this could be consistent with pneumonia given the clinical circumstances. Will add azithromycin to above ordered cefepime for possible CAP. Critical care time 35 minutes in direct patient care, documentation, discussion with son by phone, multiple fluid boluses, interpretation of labs and consultations. Seen and examined at the bedside, he is a bit encephalopathic, hard to arouse but protecting his airway and agreeable to hospital admission. Call to Dr. Corea for admission at 8:07 AM. Took critical lactate from lab at 8:18 AM. 2 more liters of normal saline ordered for a total of 3 L to complete greater than 30 mL/kg sepsis fluids. Pressure continued to be quite soft after 3 L fluid bolus down into the range of 80s over 40s with maps hovering around 65. As such central line was placed to administer Levophed. Procedure note, central line: Verbal informed consent was obtained, risks including bleeding, infection, pneumothorax, arterial puncture, and need for surgery were discussed with the patient. The patient was prepped twice with ChloraPrep. I wore cap, mask, gown, sterile gloves. Full sterile sheet was utilized. Using real-time ultrasound guidance the right internal jugular vein was accessed and using Seldinger technique a triple-lumen 7 [place] central line was placed in standard fashion and sutured into place without immediate complications. Discharge Plan Discharge Patient Disposition: 64 [facility] DC/Xfer Condition: Stable Clinical Impression: Injury of head and neck, Syncope, Sepsis Prescriptions: No Action abiraterone 500 mg tablet 1,000 mg PO DAILY Qty: 60 4RF folic acid 1 mg tablet 1 mg PO QDAY Qty: 90 2RF ProAir RespiClick 90 MCG aerosol powdr breath activated 2 puff IH Q6HR PRN (Reason: shortness of breath or wheezing) furosemide 40 MG tablet 80 mg PO UD Patient Comments: Taking 80 mg every other day ascorbic acid (vitamin C) 1,000 MG tablet 1,000 mg PO DAILY metoprolol succinate [Toprol XL] 200 MG tablet extended release 24 hr 50 mg PO BID Rx Instructions: 50 mg AM/25 mg PM spironolactone [Aldactone] 25 MG tablet 12.5 mg PO DAILY tamsulosin 0.4 MG capsule 0.4 mg PO DAILY PM Patient Comments: Patient states only taking 1 cap (0.4mg) every night nitroglycerin 0.4 MG tablet, sublingual 0.4 mg sublingual Q5MIN PRN (Reason: Moderate Pain (Level 4-6)) docusate sodium [Stool Softener] 100 MG capsule 100 mg PO UD PRN (Reason: constipation) rosuvastatin [Crestor] 40 MG tablet 40 mg PO DAILY Synjardy 1 EACH tablet 1 ea PO BID Wegovy 0.5 MG/0.5 ML pen injector 1 mg SQ UD Patient Comments: Wednesday warfarin 2.5 MG tablet 5 mg PO UD Rx Instructions: 4 times/week omeprazole 20 mg capsule,delayed release(DR/EC) 20 mg PO DAILY Stiolto Respimat 2.5-2.5 mcg/actuation mist 2 puff inhalation DAILY mupirocin [Centany] 2 % ointment 1 applic topical BID PRN (Reason: wound care) Humulin R U-500 (Conc) Kwikpen 500 unit/mL (3 mL) insulin pen 45 unit subcut BID prednisone 5 mg tablet 5 mg PO DAILY Qty: 90 2RF cephalexin 500 mg capsule 500 mg PO Q12H Qty: 20 0RF Print Language: Brazilian
[2025-08-13 07:17] LABS: ABNORMAL LYMPHS % (MANUAL) 0 %; BASOPHILS # (MANUAL) 0.0 10^3/uL (0-0.1); EOSINOPHILS # (MANUAL) 0.0 10^3/uL (0-0.7)
[2025-08-13 07:21] LABS: ALT ALANINE AMINOTRANSFERASE 24.0 IU/L (10-60); AST ASPARTATE AMINOTRANSFERASE 39.0 IU/L (10-42); BUN - BLOOD UREA NITROGEN 28.0 mg/dL (6-20); CARBON DIOXIDE - CO2 24.0 mmol/L (21-32); CREATININE 1.1 mg/dL (0.6-1.3); GFR - MDRD 65.0 (>89)
[2025-08-13 07:23] LABS: TROPONIN I HIGH SENSITIVITY 10.5 ng/L (2.3-19.7)
[2025-08-13 07:39] LABS: BAND NEUTROPHILS % (MANUAL) 15 %; LYMPHOCYTES # (MANUAL) 1.4 10^3/uL (1.5-3.5); LYMPHOCYTES % (MANUAL) 5 %; METAMYELOCYTES % (MANUAL) 2 %; MONOCYTES # (MANUAL) 0.2 10^3/uL (0.0-1.0); NEUTROPHILS # (MANUAL) 21.8 10^3/uL (1.5-6.6); RBC MORPHOLOGY (MULTIPLE) 4+ ANISOCYTOSIS (NORMAL); REACTIVE LYMPHS % (MANUAL) 1 %
[2025-08-13 07:40] LABS: PLATELET ESTIMATE, MANUAL DECREASED (<130,000) (NORMAL)
[2025-08-13] MEDS: SODIUM CHLORIDE 0.9% 1,000 ML IV STA ×3 (07:45→08:40)
--- NOTE | 2025-08-13 07:52 | CT Report ---
PROCEDURE: CT Head WO INDICATIONS: fall, on coumadin, alert and no MANDUJANO TECHNIQUE: CT of the head was performed, without intravenous contrast. Reformats: Coronal and sagittal. For radiation dose reduction, the following was used: automated exposure control, adjustment of mA and/or kV according to patient size. COMPARISON: 03/30/2023 FINDINGS: Image quality: Diagnostic. CSF spaces: Basal cisterns are patent. No extra-axial fluid collections. Ventricles are normal in size and shape. Brain: No midline shift. No intracranial mass effect or hemorrhage. Nevarez- white matter interface is normal. Age appropriate volume loss and periventricular white matter hypoattenuation, likely chronic ischemic change. Skull and face: Calvarium and visualized facial bones are intact, without suspicious lesions. Sinuses: Visualized sinuses and mastoids are clear. IMPRESSION: No acute intracranial pathology. Reviewed by: Raleigh Anton MD on 08/13/2025 7:48 AM PST Approved by: Raleigh Anton MD on 08/13/2025 7:48 AM PST Station ID: [id number]
--- NOTE | 2025-08-13 07:54 | CT Report ---
PROCEDURE: CT Cervical Spine WO INDICATIONS: fall/syncope, struck head TECHNIQUE: Noncontrast images acquired from the skull base to the T4 level. Sagittal and coronal reformats were then constructed. For radiation dose reduction, the following was used: automated exposure control, adjustment of mA and/or kV according to patient size. COMPARISON: None. FINDINGS: Image quality: Excellent. Bones: No fractures or dislocations. Severe cervical spondylosis. Multilevel disc height loss and prominent posterior disc osteophyte complexes and uncovertebral joint hypertrophy. There is multilevel canal stenosis spanning from C4-C5 through C6-C7. It is likely moderate to severe at C6-C7. There is multilevel bilateral bony foraminal narrowing. There is prominent left facet hypertrophy at C2-C3 and C3-C4. Visualized superior ribs are intact. Soft tissues: Prevertebral soft tissues are normal in thickness. No paravertebral hematomas. No apical pneumothoraxes. IMPRESSION: No acute, displaced fracture or traumatic subluxation. Severe cervical spondylosis with multilevel canal stenosis and foraminal stenosis. Reviewed by: Raleigh Anton MD on 08/13/2025 7:50 AM PST Approved by: Raliegh Anton MD on 08/13/2025 7:50 AM PST Station ID: [id number]
--- NOTE | 2025-08-13 07:58 | XRAY Report ---
PROCEDURE: XR Chest 1V INDICATIONS: weakness, some recent cough TECHNIQUE: One view of the chest was acquired. COMPARISON: 02/18/2025 FINDINGS: Surgical changes and devices: Pacemaker, TAPVR. Lungs and pleura: No pleural effusions or pneumothorax. Mild patchy bibasilar atelectasis, left greater than right.. Mediastinum: Mediastinal contours appear normal. Heart size is normal. Bones and chest wall: No suspicious bony lesions. Overlying soft tissues appear unremarkable. IMPRESSION: Mild patchy bibasilar atelectasis, left greater than right. Reviewed by: Raleigh Anton MD on 08/13/2025 7:54 AM PST Approved by: Raleigh Anton MD on 08/13/2025 7:54 AM PST Station ID: [id number]
[2025-08-13 08:05] LABS: B. PARAPERTUSSIS- RESP PCR PAN NOT DETECTED; B. PERTUSSIS- RESP PCR PANEL NOT DETECTED; C. PNEUMONIAE- RESP PCR PANEL NOT DETECTED; CORONAVIRUS 229E-RESP PCR NOT DETECTED; CORONAVIRUS HKU1-RESP PCR NOT DETECTED; CORONAVIRUS NL63-RESP PCR NOT DETECTED; CORONAVIRUS OC43-RESP PCR NOT DETECTED; HUMAN METAPNEUMOVIRUS NOT DETECTED; INFLUENZA A- RESP PCR PANEL NOT DETECTED; INFLUENZA B - RESP PCR PANEL NOT DETECTED; M. PNEUMONIAE- RESP PCR PANEL NOT DETECTED; PARAINFLUENZA VIRUS 1 NOT DETECTED; PARAINFLUENZA VIRUS 2 NOT DETECTED; PARAINFLUENZA VIRUS 4 NOT DETECTED; RHINOVIRUS/ENTEROVIRUS NOT DETECTED; RSV- RESP PCR PANEL NOT DETECTED; SARS-CoV-2 -RESP PCR PANEL NOT DETECTED
[2025-08-13] MEDS: CEFEPIME 2 GM VIAL IVP STA (08:41)
[2025-08-13] MEDS: AZITHROMYCIN INJ 500 MG in SODIUM CHLORIDE 0.9% 250 ML IV STA (08:42)
--- OUTSIDE RECORDS SUMMARY | 2025-08-13 09:35 | EXTERNAL MEDICAL SUMMARY RPT | Continuity of Care Document ---
Author Organization [facility] Address [address] [place] [id number] Phone Allergies and Intolerances date description facility reaction severity 2025-02-18 10:00 [id number]^fluconazo le^^flucon azole^^allergy.id [facility] Unknown (no severity) 2025-05-10 10:00 [id number]^fluconazo le^^flucon azole^^allergy.id [facility] Unknown (no severity) 2025-06-07 10:00 [id number]^fluconazo le^^flucon azole^^allergy.id [facility] Unknown (no severity) 2025-08-13 10:00 [id number]^fluconazo le^^flucon azole^^allergy.id [facility] Unknown (no severity) Problems date description facility 2025-05-31 11:58 Malignant neoplasm of prostate [facility] 2025-05-31 11:58 Iron deficiency anemia, unspeci fied [facility] [employer] [facility] 2025-05-31 11:58 Urgency of urination [facility] 2025-05-31 12:00 Malignant neoplasm of prostate [facility] 2025-05-31 12:00 Iron deficiency anemia, unspeci fied [facility] 2025-05-31 12:00 Urgency of urination [facility] 2025-05-31 12:35 Malignant neoplasm of prostate [facility] 2025-05-31 12:35 Iron deficiency anemia, unspeci fied [facility] 2025-05-31 12:35 [facility] 2025-[facility]-31 13:43 Cellulitis of left lower limb [facility] 2025-05-31 13:43 Other specified soft tissue dis orders [facility] [employer] [facility] 2025-05-31 13:52 Malignant neoplasm of prostate [facility] 2025-05-31 13:52 Iron deficiency anemia, unspeci fied [facility] 2025-05-31 13:52 [facility]rg[facility] urination [facility] 2025-05-31 14:01 Malignant neoplasm of prostate [facility] 2025-05-31 14:01 Iron deficiency anemia, unspeci fied [facility] 2025-05-31 14:01 Urgency of urination [facility] 2025-06-01 00:04 Malignant neoplasm of prostate [facility] 2025-06-01 00:04 Iron deficiency anemia, unspeci fied [facility] 2025-06-01 11:02 Cellulitis of left lower limb [facility] 2025-06-01 11:02 Other specified soft tissue dis [facility] 2025-06-04 13:08 Malignant neoplasm of prostate [facility] 2025-06-07 14:13 [facility]ential ([facility]ensio n [facility] 14:13 [facility] lower [facility] 2025-[facility]-07 14:13 [facility]ulitis of unspecified part [facility] 2025-07-03 10:28 Malignant neoplasm of prostate [facility] 2025-07-03 10:28 Iron deficiency anemia, unspeci fied [facility] 2025-07-03 10:28 Urgency of urination [facility] 2025-07-10 13:45 Malignant neoplasm of prostate [facility] 2025-07-10 13:45 Iron deficiency anemia, unspeci fied [facility] 2025-07-10 13:45 Urgency of urination [facility] 2025-07-12 10:51 Malignant neoplasm of prostate [facility] 2025-07-12 10:51 Iron deficiency anemia, unspeci fied [facility] 2025-07-12 10:51 Urgency of urination [facility] 2025-07-12 11:25 Malignant neoplasm of prostate [facility] 2025-07-12 11:25 Iron deficiency anemia, unspeci fied [facility] 2025-07-12 11:25 Urgency of urination [facility] 2025-07-12 12:50 Malignant neoplasm of prostate [facility] 2025-07-12 12:50 Iron deficiency anemia, unspeci fied [facility] 2025-07-12 12:50 Urgency of urination [facility] 2025-07-12 12:58 Malignant neoplasm of prostate [facility] 2025-07-12 12:58 Iron deficiency anemia, unspeci fied [facility] 2025-07-12 12:58 Urgency of urination [facility] 2025-07-17 11:26 Malignant neoplasm of prostate [facility] 2025-08-13 09:25 Sepsis, unspecified organism [facility] 2025-08-13 09:25 Pneumonia, unspecified organism [facility] Results/Labs test date facility value unit notes Result panel 1 NUCLEATED RED BLOOD CELLS AUTO 2025-05-31 11:34 [facility] 0.0 /100wbc (missing) BASOPHILS # (AUTO) 2025-05-31 11:34 [facility] 0.0 10 3/ul (missing) NRBC ABSOLUTE COUNT (AUTO) 2025-05-31 11:34 [facility] 0.00 x10 3/ul (missing) PSA TOTAL 2025-05-31 11:34 [facility] 0.072 ng/ml [facility] uses a WHO cutoff value of 2.0 ng/mL. EOSINOPHILS # (AUTO) 2025-05-31 11:34 [facility] 0.1 10 3/ul (missing) MONOCYTES # (AUTO) 2025-05-31 11:34 [facility] 0.5 10 3/ul (missing) BILIRUBIN,TOTAL 2025-05-31 11:34 [facility] 0.5 mg/dl As of February 2023 testing method has changed, this may include reference ranges. CREATININE 2025-05-31 11:34 [facility] 0.8 mg/dl As of February 2023 testing method has changed, this may include reference ranges. LYMPHOCYTES # (AUTO) 2025-05-31 11:34 [facility] 1.7 10 3/ul (missing) ALBUMIN/GLOBULIN RATIO 2025-05-31 11:34 [facility] 1.9 (missing) (missing) CHLORIDE 2025-05-31 11:34 [facility] 103 mmol/l As of February 2023 testing method has changed, this may include reference ranges. HGB - HEMOGLOBIN 2025-05-31 11:34 [facility] 11.4 g/dl (missing) SODIUM 2025-05-31 11:34 [facility] 137 mmol/l Unknown BUN - BLOOD UREA NITROGEN 2025-05-31 11:34 [facility] 14 mg/dl As of February 2023 testing method has changed, this may include reference ranges. ALT ALANINE AMINOTRANSFERASE 2025-05-31 11:34 [facility] 15 iu/l As of February 2023 testing method has changed, this may include reference ranges. GLUCOSE 2025-05-31 11:34 [email or web address] 151 mg/dl As of February 2023 testing method has changed, this may include reference ranges. AST ASPARTATE AMINOTRANSFERASE 2025-05-31 11:34 [email or web address] 17 iu/l As of February 2023 testing method has changed, this may include reference ranges. GLOBULIN 2025-05-31 11:34 [facility] 2.3 g/dl (missing) RED CELL DISTRIBUTION WIDTH 2025-05-31 11:34 [facility] 21.1 % (missing) MEAN CORPUSCULAR HEMOGLOBIN 2025-05-31 11:34 [email or web address] 25.3 pg (missing) TRANSFERRIN 2025-05-31 11:34 [facility] 268 mg/dl As of February 2023 testing method has changed, this may include reference ranges. CARBON DIOXIDE - CO2 2025-05-31 11:34 [email or web address] 28 mmol/l As of February 2023 testing method has changed, this may include reference ranges. MEAN CORPUSCULAR HGB CONC 2025-05-31 11:34 [facility] 29.8 g/dl (missing) POTASSIUM 2025-05-31 11:34 [facility] 3.6 mmol/l As of February 2023 testing method has changed, this may include reference ranges. IRON 2025-05-31 11:34 [facility] 32 ug/dl As of February 2023 testing method has changed, this may include reference ranges. TOTAL IRON BINDING CAPACITY 2025-05-31 11:34 [facility] 375 ug/dl (missing) HCT - HEMATOCRIT 2025-05-31 11:34 [email or web address] 38.2 % (missing) ALBUMIN 2025-05-31 11:34 [email or web address] 4.4 g/dl As of February 2023 testing method has changed, this may include reference ranges. RED BLOOD COUNT 2025-05-31 11:34 [facility] 4.51 10 6/ul (missing) NEUTROPHILS # (AUTO) 2025-05-31 11:34 [facility] 5.9 10 3/ul (missing) ANION GAP 2025-05-31 11:34 [facility] 6.0 (missing) (missing) TOTAL PROTEIN 2025-05-31 11:34 [facility] 6.7 g/dl As of February 2023 testing method has changed, this may include reference ranges. FERRITIN 2025-05-31 11:34 [facility] 68.9 ng/ml (missing) ALKALINE PHOSPHATASE 2025-05-31 11:34 [facility] 79 iu/l As of February 2023 testing method has changed, this may include reference ranges. WHITE BLOOD COUNT 2025-05-31 11:34 [email or web address] 8.2 x10 3/ul (missing) MEAN CORPUSCULAR VOLUME 2025-05-31 11:34 [facility] 84.7 fl (missing) % IRON SATURATION 2025-05-31 11:34 [facility] 9 % (missing) CALCIUM 2025-05-31 11:34 [facility] 9.6 mg/dl As of February 2023 testing method has changed, this may include reference ranges. PLT - PLATELET COUNT 2025-05-31 11:34 [email or web address] 91 10 3/ul (missing) GFR - MDRD 2025-05-31 11:34 [email or web address] 94 (missing) The IDMS-traceable MDRD Study Equation [...] NUCLEATED RED BLOOD CELLS AUTO 2025-07-10 14:00 [facility] 0.0 /100wbc (missing) BASOPHILS # (AUTO) 2025-07-10 14:00 [facility] 0.0 10 3/ul (missing) EOSINOPHILS # (AUTO) 2025-07-10 14:00 [facility] 0.0 10 3/ul (missing) NRBC ABSOLUTE COUNT (AUTO) 2025-07-10 14:00 [facility] 0.00 x10 3/ul (missing) MONOCYTES # (AUTO) 2025-07-10 14:00 [facility] 0.8 10 3/ul (missing) LYMPHOCYTES # (AUTO) 2025-07-10 14:00 [facility] 0.8 10 3/ul (missing) NEUTROPHILS # (AUTO) 2025-07-10 14:00 [facility] 10.3 10 3/ul (missing) PLT - PLATELET COUNT 2025-07-10 14:00 [facility] 118 10 3/ul (missing) WHITE BLOOD COUNT 2025-07-10 14:00 [facility] 12.0 x10 3/ul (missing) HGB - HEMOGLOBIN 2025-07-10 14:00 [facility] 13.4 g /dl (missing) IRON 2025-07-10 14:00 [facility] 18 ug/dl As of February 2023 testing method has changed, this may include reference ranges. RED CELL DISTRIBUTION WIDTH 2025-07-10 14:00 [facility] 19.2 % (missing) TRANSFERRIN 2025-07-10 14:00 [facility] 202 mg/dl As of February 2023 testing method has changed, this may include reference ranges. FERRITIN 2025-07-10 14:00 [facility] 256.5 ng/ml (missing) MEAN CORPUSCULAR HEMOGLOBIN 2025-07-10 14:00 [facility] 26.2 pg (missing) TOTAL IRON BINDING CAPACITY 2025-07-10 14:00 [facility] 283 ug/dl (missing) MEAN CORPUSCULAR HGB CONC 2025-07-10 14:00 [facility] 31.2 g/dl (missing) HCT - HEMATOCRIT 2025-07-10 14:00 [facility] 43.0 % (missing) RED BLOOD COUNT 2025-07-10 14:00 [facility] 5.11 10 6/ul (missing) % IRON SATURATION 2025-07-10 14:00 [facility] 6 % (missing) MEAN CORPUSCULAR VOLUME 2025-07-10 14:00 [facility] 84.1 fl (missing) MEAN PLATELET VOLUME 2025-07-10 14:00 [facility] 9.9 fl (missing) Result panel 3 ABNORMAL LYMPHS % (MANUAL) 2025-08-13 06:55 [facility] 0 % (missing) NUCLEATED RED BLOOD CELLS AUTO 2025-08-13 06:55 [facility] 0.0 /100wbc (missing) BASOPHILS # (MANUAL) 2025-08-13 06:55 [facility] 0.0 10 3/ul (missing) EOSINOPHILS # (MANUAL) 2025-08-13 06:55 [facility] 0.0 10 3/ul (missing) EOSINOPHILS # (AUTO) 2025-08-13 06:55 [facility] 0.0 10 3/ul (missing) NRBC ABSOLUTE COUNT (AUTO) 2025-08-13 06:55 [facility] 0.00 x10 3/ul (missing) BASOPHILS # (AUTO) 2025-08-13 06:55 [facility] 0.1 10 3/ul (missing) MONOCYTES # (MANUAL) 2025-08-13 06:55 [facility] 0.2 10 3/ul (missing) MONOCYTES # (AUTO) 2025-08-13 06:55 [facility] 0.7 10 3/ul (missing) REACTIVE LYMPHS % (MANUAL) 2025-08-13 06:55 [facility] 1 % (missing) CREATININE 2025-08-13 06:55 [facility] 1.1 mg/dl As of February 2023 testing method has changed, this may include reference ranges. BILIRUBIN,TOTAL 2025-08-13 06:55 [facility] 1.2 mg/dl As of February 2023 testing method has changed, this may include reference ranges. LYMPHOCYTES # (AUTO) 2025-08-13 06:55 [facility] 1.4 10 3/ul (missing) LYMPHOCYTES # (MANUAL) 2025-08-13 06:55 [facility] 1[facility] 10 3/ul (missing) MAGNESIUM 2025-08-13 06:55 [facility] 1.8 mg/dl As of February 2023 testing method has changed, this may include reference ranges. GLOBULIN 2025-08-13 06:55 [facility] 1.9 g/dl (missing) MEAN PLATELET VOLUME 2025-08-13 06:55 [facility] 10.0 fl (missing) CALCIUM 2025-08-13 06:55 [facility] 10.0 mg/dl As of February 2023 testing method has changed, this may include reference ranges. TROPONIN I HIGH SENSITIVITY 2025-08-13 06:55 [facility] 10.5 ng/l A HIGH SENSITIVITY TROPONIN result of >= 14.9 ng/L for females is considered POSITIVE. A HIGH SENSITIVITY TROPONIN result of >= 19.8 ng/L for males is considered POSITIVE. A HIGH SENSITIVITY TROPONIN result of >= 17.9 ng/L for unspecified is considered POSITIVE. TOTAL CELLS COUNTED 2025-08-13 06:55 [facility] 100 (missing ) (missing) CHLORIDE 2025-08-13 06:55 [facility] 104 mmol/l As of February 2023 testing method has changed, this may include reference ranges. ANION GAP 2025-08-13 06:55 [facility] 12.0 (missing ) (missing) HGB - HEMOGLOBIN 2025-08-13 06:55 [facility] 14.2 g/dl (missing) SODIUM 2025-08-13 06:55 [facility] 140 mmol/l (missing) GLUCOSE 2025-08-13 06:55 [facility] 148 mg/dl As of February 2023 testing method has changed, this may include reference ranges. BAND NEUTROPHILS % (MANUAL) 2025-08-13 06:55 [facility] 15 % (missing) RED CELL DISTRIBUTION WIDTH 2025-08-13 06:55 [facility] 19.3 % (missing) METAMYELOCYTES % (MANUAL) 2025-08-13 06:55 [facility] 2 % (missing) INR 2025-08-13 06:55 [facility] 2.1 (missing ) Oral Anticoagulant Indication INR range Venous Thrombosis, P.E. 2.0 - 3.0 Mechanical Valve 2.5 - 3.5 ALBUMIN/GLOBULIN RATIO 2025-08-13 06:55 [facility] 2.3 (missing ) (missing) NEUTROPHILS # (AUTO) 2025-08-13 06:55 [facility] 21.7 10 3/ul (missing) NEUTROPHILS # (MANUAL) 2025-08-13 06:55 [facility] 21.8 10 3/ul (missing) PT - PROTHROMBIN TIME 2025-08-13 06:55 [facility] 23.1 secs Y COUMADIN ALT ALANINE AMINOTRANSFERASE 2025-08-13 06:55 [facility] 24 iu/l As of February 2023 testing method has changed, this may include reference ranges. CARBON DIOXIDE - CO2 2025-08-13 06:55 [facility] 24 mmol/l As of February 2023 testing method has changed, this may include reference ranges. WHITE BLOOD COUNT 2025-08-13 06:55 [facility] 24.0 x10 3/ul (missing) MEAN CORPUSCULAR HEMOGLOBIN 2025-08-13 06:55 [facility] 26.5 pg (missing) BUN - BLOOD UREA NITROGEN 2025-08-13 06:55 [facility] 28 mg/dl As of February 2023 testing method has changed, this may include reference ranges. POTASSIUM 2025-08-13 06:55 [facility] 3.6 mmol/l As of February 2023 testing method has changed, this may include reference ranges. LIPASE 2025-08-13 06:55 [facility] 31 u/l As of February 2023 testing method has changed, this may include reference ranges. MEAN CORPUSCULAR HGB CONC 2025-08-13 06:55 [facility] 31.3 g/dl (missing) AST ASPARTATE AMINOTRANSFERASE 2025-08-13 06:55 [facility] 39 iu/l As of February 2023 testing method has changed, this may include reference ranges. RBC MORPHOLOGY (MULTIPLE) 2025-08-13 06:55 [facility] 4+ ANISOCYTOSIS (missing ) (missing) ALBUMIN 2025-08-13 06:55 [facility] 4.4 g/dl As of February 2023 testing method has changed, this may include reference ranges. HCT - HEMATOCRIT 2025-08-13 06:55 [facility] 45.3 % (missing) RED BLOOD COUNT 2025-08-13 06:55 [facility] 5.35 10 6/ul (missing) TOTAL PROTEIN 2025-08-13 06:55 [facility] 6.3 g/dl As of February 2023 testing method has changed, this may include reference ranges. GFR - MDRD 2025-08-13 06:55 [facility] 65 (missing ) The IDMS-traceable MDRD Study Equation has been [...] caring for patients older than 70. References: http://www.nkdep .nih.gov/lab-eugenio luation/gfr/crea tinine-stand ardization, last updated October 2011. ALKALINE PHOSPHATASE 2025-08-13 06: [facility] 78 iu/l As of February 2023 testing method has changed, this may include reference ranges. MEAN CORPUSCULAR VOLUME 2025-08-13 06:55 [facility] 84.7 fl (missing) PLT - PLATELET COUNT 2025-08-13 06:55 [facility] 87 10 3/ul (missing) PLATELET ESTIMATE, MANUAL 2025-08-13 06:55 [facility] DECREASED (<130,000) (missing ) (missing) DIFFERENTIAL COMMENT 2025-08-13 06:55 [facility] MANUAL DIFFERENTIAL (missing ) (missing) Result panel 4 ADENOVIRUS - RESP PCR PANEL 2025-08-13 07:02 [facility] DETECTED (missing) NO Y NO YES NO NO NO NO Adenovirus detected by the [employer] RP2.1 Panel, a multiplexed nucleic acid test intended for the simultaneous qualitative detection and differentiation of nucleic acids from multiple viral and bacterial respiratory organisms. SARS-CoV-2 -RESP PCR PANEL 2025-08-13 07:02 [facility] NOT DETECTED (missing) A negative test result for this test indicates that SARS-CoV-2 RNA was not present in the specimen above the limit of detection. Testing performed on the [employer] RP2.1 Panel, a multiplexed nucleic acid repiratory panel. Negative results do not preclude infection with SARS-CoV-2 virus and should not be the sole basis of a patient management decision. In some patients repeat testing at various time points may be necessary for virus detection. False-negative results may arise from improper sample collection, degradation of viral RNA during shipping or storage, the presence of PCR inhibitors, and/or mutation in the SARS-CoV-2 virus. INFLUENZA A- RESP PCR PANEL 2025-08-13 07: [facility] NOT DETECTED (missing) Influenza A including subtypes H1, H3, and H1-2009 not detected by the [place] [employer] RP2.1 Panel, a multiplexed nucleic acid test intended for the simultaneous qualitative detection and differentiation of nucleic acids from multiple viral and bacterial respiratory organisms. B. PARAPERTUSSIS- RESP PCR MEDINA 2025-08-13 07:02 [facility] NOT DETECTED (missing) Negative results for this organism do not preclude infection with this organism and may require additional laboratory testing (e.g., bacterial and viral culture, immunofluorescence, and radiography) when evaluating a patient with possible respiratory tract infection. B. PERTUSSIS- RESP PCR PANEL 2025-08-13 07:02 [facility] NOT DETECTED (missing) Negative results for this organism do not preclude infection with this organism and may require additional laboratory testing (e.g., bacterial and viral culture, immunofluorescence, and radiography) when evaluating a patient with possible respiratory tract infection. C. PNEUMONIAE- RESP PCR PANEL 2025-08-13 07:02 [facility] NOT DETECTED (missing) Negative results for this organism do not preclude infection with this organism and may require additional laboratory testing (e.g., bacterial and viral culture, immunofluorescence, and radiography) when evaluating a patient with possible respiratory tract infection. M. PNEUMONIAE- RESP PCR PANEL 2025-08-13 07:02 [facility] NOT DETECTED (missing) Negative results for this organism do not preclude infection with this organism and may require additional laboratory testing (e.g., bacterial and viral culture, immunofluorescence, and radiography) when evaluating a patient with possible respiratory tract infection. CORONAVIRUS 229E-RESP PCR 2025-08-13 07:02 [facility] NOT DETECTED (missing) Negative results in the setting ofa respiratory illness may be due to infection with pathogens not detected by this test, or lower respiratory tract infection that may not be detected by nasopharyngeal specimen. CORONAVIRUS HKU1-RESP PCR 2025-08-13 07:02 [facility] NOT DETECTED (missing) Negative results in the setting ofa respiratory illness may be due to infection with pathogens not detected by this test, or lower respiratory tract infection that may not be detected by nasopharyngeal specimen. CORONAVIRUS [id number]-PPIY PCR 2025-08-13 07:02 [facility] NOT DETECTED (missing) Negative results in the setting ofa respiratory illness may be due to infection with pathogens not detected by this test, or lower respiratory tract infection that may not be detected by nasopharyngeal specimen. CORONAVIRUS [id number] PCR 2025-08-13 07:02 [facility] NOT DETECTED (missing) Negative results in the setting ofa respiratory illness may be due to infection with pathogens not detected by this test, or lower respiratory tract infection that may not be detected by nasopharyngeal specimen. HUMAN METAPNEUMOVIRUS 2025-08-13 07:02 [facility] NOT DETECTED (missing) Negative results in the setting ofa respiratory illness may be due to infection with pathogens not detected by this test, or lower respiratory tract infection that may not be detected by nasopharyngeal specimen. INFLUENZA B - RESP PCR PANEL 2025-08-13 07:02 [facility] NOT DETECTED (missing) Negative results in the setting ofa respiratory illness may be due to infection with pathogens not detected by this test, or lower respiratory tract infection that may not be detected by nasopharyngeal specimen. PARAINFLUENZA VIRUS 1 2025-08-13 07:02 [facility] NOT DETECTED (missing) Negative results in the setting ofa respiratory illness may be due to infection with pathogens not detected by this test, or lower respiratory tract infection that may not be detected by nasopharyngeal specimen. PARAINFLUENZA VIRUS 2 2025-08-13 07:02 [facility] NOT DETECTED (missing) Negative results in the setting ofa respiratory illness may be due to infection with pathogens not detected by this test, or lower respiratory tract infection that may not be detected by nasopharyngeal specimen. PARAINFLUENZA VIRUS 3 2025-08-13 07:02 [facility] NOT DETECTED (missing) Negative results in the setting ofa respiratory illness may be due to infection with pathogens not detected by this test, or lower respiratory tract infection that may not be detected by nasopharyngeal specimen. PARAINFLUENZA VIRUS 4 2025-08-13 07:02 [facility] NOT DETECTED (missing) Negative results in the setting ofa respiratory illness may be due to infection with pathogens not detected by this test, or lower respiratory tract infection that may not be detected by nasopharyngeal specimen. RHINOVIRUS/ENTEROVI CJ 2025-08-13 07:02 [facility] NOT DETECTED (missing) Negative results in the setting ofa respiratory illness may be due to infection with pathogens not detected by this test, or lower respiratory tract infection that may not be detected by nasopharyngeal specimen. RSV- RESP PCR PANEL 2025-08-13 07:02 [facility] NOT DETECTED (missing) Negative results in the setting ofa respiratory illness may be due to infection with pathogens not detected by this test, or lower respiratory tract infection that may not be detected by nasopharyngeal specimen. Result panel 5 PROCALCITONIN 2025-08-13 07:30 [facility] 20.26 ng/ml Critical result PrCT 20.26 ng/mL called to and read back by Dr. Stan [facility] at 13-Aug-2025 08:24 by [facility]. PCT Concentration (ng/mL) Children >72hrs old and Adults Interpretation <0.5 Low risk of severe sepsis and/or septic shock >2.0 High risk of severe sepsis and/or septic shock Concentrations under 0.5 ng/mL do not exclude local infections or systemic infections in their initial stages (e.g. under six hours from onset of illness). PCT concentrations between 0.5 and 2.0 ng/mL should be interpreted with consideration of the patient's history. In this range, it is recommended to retest PCT within 6 to 24hours. LACTIC ACID, VENOUS 2025-08-13 07:30 [facility] 3.7 mmol/l N Critical result LA C 3.7 mmol/L called to and read back by Dr. Stan [facility] at 13-Aug-2025 08:16 by [facility]. As of February 2023 testing method has changed, this may include reference ranges. Social History date description facility
--- NOTE | 2025-08-13 09:38 | HISTORY & PHYSICAL EXAMINATION ---
Chief Complaint Chief Complaint Chief Complaint: Found down History of Present Illness Admitted From Admitted From:: Home History Obtained From Records Reviewed: EMR History obtained from: Patient Exam Limitations: Unaware of events leading to admission (?syncopal event) History of Present Illness HPI Comment/Other: Patient is a 74-year-old male with a history of COPD not on home oxygen, atrial fibrillation on Coumadin, s/p TAVR, prostate adenocarcinoma on hormonal therapy who presents for increasing weakness, fevers, chills. Patient states that for the past 2 weeks, he has had a runny nose, and a post nasal drip. He denies any cough, shortness of breath. He does endorse some chills. He has not checked his temperature, but feels hot at times. ER documentation is reviewedpatient son called EMS as he found the patient crumpled against the wall, less responsive. Unclear if he fell. He does not recall the events that led to this. In the ER, patient's blood pressure was initially 114/57, heart rate was 70, temp was 100.9, and he was saturating 94% on room air. He received 3 L of fluid per the sepsis protocol. However, his MAP remained low, and a central line was placed, and he was started on Levophed. Lab work was reviewedpatient has a leukocytosis of 24. His INR is 2.1. BMP is remarkable for slight elevation of glucose of 148. His lactic acid was 3.7 on admission, and increased to 4.2 despite IV fluid resuscitation. His respiratory viral panel was positive for adenovirus. Chest x-ray shows mild patchy bibasilar atelectasis, left greater than right. Head CT and cervical spine CT showed no acute abnormalities. He was admitted to the ICU for septic shock, with likely pneumonia. 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 Medications include prednisone, warfarin, insulin. His illicit drug allergies include fluconazole, but he unclear what the reaction is. Surgical history includes hernia repair, appendectomy, cholecystectomy. Patient is a current smoker, and smokes about a pack a day, 56-year pack history. Drinks 1-2 drinks per week. Lives with his son. Retired [employer]. Meds/Allgy Home Medications Ambulatory Orders Medication Instructions Recorded Confirmed albuterol sulfate 90 mcg/actuation 2 puff IH Q6HR PRN shortness of 02/09/24 08/13/25 breath activated powder inhaler breath or wheezing (ProAir RespiClick) ascorbic acid (vitamin C) 1,000 mg 1,000 mg PO DAILY 0 02/09/24 08/13/25 tablet docusate sodium 100 mg capsule 100 mg PO UD PRN consti pation 02/09/24 08/13/25 (Stool Softener) empagliflozin 5 mg-metformin 1,000 1 ea PO BID 4 08/13/25 mg tablet (Synjardy) furosemide 40 mg tablet 80 mg PO .QOD 02/09/2408/13 nitroglycerin 0.4 mg sublingual 0.4 mg sublingual Q5MI N PRN 02/09/24 08/13/25 tablet Moderate Pain (Level 4-6) rosuvastatin 40 mg tablet (Crestor) 40 mg PO DAILY 08/13/25 semaglutide (weight loss) 0.5 1 mg SQ UD 02/09/2407/24/25 mg/0.5 mL subcutaneous pen injector (Wegovy) spironolactone 25 mg tablet 12.5 mg PO DAILY 02/09/24 08/13/25 (Aldactone) tamsulosin 0.4 mg capsule 0.4 mg PO DAILY PM 02/09/24 08/13/25 warfarin 2.5 mg tablet 5 mg PO DAILY 04/05/2408/13 insulin regular hum U-500 conc 500 45 unit subcut BID 01/24/25 08/13/25 unit/mL(3 mL) subcut pen (Humulin R U-500 (Conc) Insulin Kwikpen) omeprazole 20 mg capsule,delayed 20 mg PO DAILY 08/13/25 release tiotropium 2.5 mcg-olodaterol 2.5 2 puff inhalation DA GODWIN 01/24/25 08/13/25 mcg/actuation mist for inhalation (Stiolto Respimat) abiraterone 500 mg tablet 1,000 mg (2 x 500 mg) PO YAN LY #60 02/02/25 08/13/25 tabs prednisone 5 mg tablet 5 mg PO DAILY #90 tabs 07/1208/13/25 folic acid 1 mg tablet 1 mg PO DAILY 08/13/2508/13 metoprolol succinate 50 mg 50 mg PO BID 08/13/2508/13 tablet,extended release 24 hr Allergies Allergies Allergy/AdvReac Type Severity Reaction Status Date / Time fluconazole AdvReac Mild Unknown Verified 08/13/25 06:53 [facility] Active Problems All Active Problems (Updated 08/13/25 @ 14:25 by Jorje Ramirez MD) Lactic acidosis (Acute) Syncope and collapse (Acute) Septic shock (Acute) Pneumonia (Acute) Sepsis (Acute) Syncope (Acute) Injury of head and neck (Acute) Cellulitis of left ankle (Acute) Encounter for antineoplastic chemotherapy (Acute) Anemia (Acute) Urinary urgency (Acute) Left leg swelling (Acute) Pulmonary nodule, right (Acute) Wound of right lower extremity (Acute) Thrombocytopenia (Acute) Iron deficiency anemia (Acute) Healthcare maintenance (Acute) Recurrent prostate cancer (Acute) Upper respiratory infection (Acute) Strain of chest wall (Acute) Lymphadenopathy (Acute) Prostatitis (Acute) Urethritis (Acute) Dysuria (Acute) Cellulitis (Acute) Left foot pain (Acute) Plantar fasciitis of left foot (Acute) Medical History Medical History Diabetes mellitus Pacemaker VIJAY treated with BiPAP Afib CVA (cerebral vascular accident) Diabetes HTN (hypertension) Hypertension Surgical History Surgical History H/O aortic valve replacement Social History Social History Smoking Status: Current every day smoker Number of Years Smoked: 60 How many cigarettes a day do you smoke? (20 cigarettes=1 Pk): 2 Second hand tobacco smoke exposure: Yes Do you dip or chew tobacco?: No Do you vape?: No Patient requests smoking cessation consult: No Initiate information on smoking cessation: No Marital Status: Support Person: No Level: Independent Do you feel safe in your home environment?: Yes History of physical, verbal, emotional, or financial abuse?: No ETOH Use: Frequency: Occasional Substance Use: denies use Service: Yes POLST Patient has POLST: No POLST on file?: No POLST CPR Status: Attempt Resuscitation (CPR) Level of Medical Intervention: Full Treatment Review of Systems Constitutional Reports: Fatigue, Chills, Malaise, Weakness and Poor appetite; Denies: Fever Eyes Denies: Pain, Irritation, Blurry vision, Vision loss or Diplopia Ears, nose, mouth, and throat Reports: Nasal discharge, Nasal congestion, Post nasal drip and Mouth lesions; Denies: Ear pain, Hearing loss, Tinnitus, Nose bleeds or Neck pain Cardiovascular Reports: Syncope and shortness of breath with exertion; Denies: Irregular heart rate, chest pain, palpitations, edema or shortness of breath when lying down Respiratory Reports: Shortness of breath; Denies: Cough or Sputum production Gastrointestinal Denies: Abdominal pain, Abdominal distention, Nausea, Vomiting, Heartburn, Diarrhea or Constipation Genitourinary Denies: Painful urination, Urinary frequency or Urinary urgency Musculoskeletal Denies: Back pain, Neck pain, Extremity pain, Extremity swelling or Joint pain Integumentary/Breast Denies: Rash, Itching, Dryness, Redness or Skin pain Neurological Reports: General weakness and Weakness in extremities; Denies: Headache, Numbness in extremities, Abnormal gait or Dizziness Psychiatric Denies: Depression, Anxiety, Mood swings or Panic attacks Endocrine Reports: Fatigue; Denies: Excessive urination or Excessive thirst Hematologic/Lymphatic Denies: Anemia, Easy bruising or Easy bleeding Allergic/Immunologic Denies: Hives Prior Level of Functionality: Independent. Lives with son. Exam Exam Vital Signs: Vital Signs x48h Temp Pulse Pulse Resp BP BP Pulse Ox 08/13/25 13:00 70 28 H 108/52 L 91 L 08/13/25 12:29 97.6 F 70 31 H 105/54 L 92 08/13/25 12:17 70 28 H 113/54 L 90 L 08/13/25 12:07 70 24 110/54 L 91 L 08/13/25 12:01 73 28 H 103/53 L 91 L 08/13/25 11:56 70 31 H 95/52 L 92 08/13/25 11:49 70 28 H 102/51 L 90 L 08/13/25 11:44 70 27 H 94/49 L 90 L 08/13/25 11:15 70 89/46 L 08/13/25 11:00 7 L 20 92/48 L 92 08/13/25 10:45 70 18 91/42 L 90 L 08/13/25 10:30 72 18 96/50 L 92 08/13/25 10:15 70 20 86/49 L 93 08/13/25 10:00 70 20 83/48 L 08/13/25 09:50 70 22 80/47 L 94 08/13/25 09:45 70 18 93/52 L 92 08/13/25 09:30 70 16 90/51 L 96 08/13/25 09:15 70 16 99/52 L 88 L 08/13/25 09:00 70 16 99/53 L 89 L 08/13/25 08:45 70 16 103/56 L 89 L 08/13/25 07:20 100.9 F H 70 16 114/48 L 94 08/13/25 06:45 99.9 F 70 16 114/57 L 93 Frail-appearing man, appears stated age. Answering appropriately. Constitutional abnormal general appearance (chronically ill) and (frail appearing), distress noted (mild) and (respiratory) and abnormal body habitus (thin) HENMT normocephalic, head/scalp atraumatic and hearing grossly normal bilaterally Eyes PERRL, EOMs intact bilaterally and conjunctivae normal Chest inspection of chest normal and palpation of chest normal Respiratory breath sounds equal bilaterally and normal respiratory effort Mild rhonchi noted in bibasilar regions. Cardiovascular normal heart rate noted, regular rhythm noted, no gallop, no rub and no murmur Gastrointestinal abdomen normal to inspection, abdomen soft to palpation, nontender to palpation and nontender to percussion Extremities normal to inspection, normal to palpation, no tenderness and full ROM Neurology no movement abnormality noted and no focal motor deficit noted Psychiatry mental status grossly normal, oriented x3, thought process normal, cooperative and affect normal Skin skin color normal, no rash and no lesions Conclusion/Plan Problem List (1) Septic shock: Qualifiers: Sepsis type: sepsis due to unspecified organism Qualified Code(s): A 41.9 - Sepsis, unspecified organism; R65.21 - Severe sepsis with septic shock (2) Pneumonia: Plan: The following plan is for the above two assessments: Patient presented after being found down. Unclear if he syncopized, as he was responsive but altered when found. Hypotensive with a leukocytosis, elevated procalcitonin level, elevated lactic acid. Chest x-ray with patchy infiltrates noted. Respiratory viral panel positive for adenovirus. He notes chills, postnasal drip, sinus congestion, and weakness over the last 2 weeks. With underlying immunocompromised state with prostate cancer, continue broad treatment with Zosyn and vancomycin at this time with concern for possible bacterial pneumonia. Blood cultures ordered x 2. Continue gentle IV fluid rehydration. Despite 3 L of IV fluid resuscitation, patient remained hypotensive. Central line placed, Levsophed started. Wean as tolerated. Patient would like full medical care, including intubation and CPR. Qualifiers: Pneumonia type: due to unspecified organism Laterality: left Lung location: unspecified part of lung Qualified Code(s): J18.9 - Pneumonia, unspecified organism (3) Syncope and collapse: Plan: Unclear if patient syncopized. Found down by son, confused and altered. Continue cardiac telemetry. CT head, CT cervical spine without any acute abnormalities noted. ECHO ordered. (4) Lactic acidosis: Plan: Hypoperfusion in setting of septic shock. Continue gentle IV fluid rehydration. Continue to trend. (5) Iron deficiency anemia: Plan: Hemoglobin 14.2, likely hemoconcentrated in setting of dehydration. Continue to trend. Baseline is around 11. Qualifiers: Iron deficiency anemia type: unspecified iron deficiency Qualified Code(s): D50.9 - Iron deficiency anemia, unspecified (6) Thrombocytopenia: Plan: Low today at 87. Continue to monitor. (7) Diabetes mellitus: Plan: A1c ordered. Last one in system is from 2014. Patient unclear how much insulin he has been using. Continue low-dose sliding scale at this time, and uptitrate as necessary. 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 (9) Afib: Plan: Currently in paced rhythm. Continue Coumadin as per home medication. Qualifiers: Atrial fibrillation type: unspecified Qualified Code(s): I48.91 - Unspecified atrial fibrillation (10) HTN (hypertension): Plan: Patient currently in septic shock. Hold and hypertensives. Qualifiers: Hypertension type: unspecified Qualified Code(s): I10 - Essential (primary) hypertension (11) Recurrent prostate cancer: Plan: Patient on hormonal therapycontinue Synjardy, abiraterone. Lab Results Lab results reviewed: Yes 08/13/25 06:55 08/13/25 06:55 Diagnostic Imaging Results Diagnostic Imaging Results: positive Final report reviewed Core Measures Anticipated LOS I expect patient to be DC'd or transferred within 96 hours.: Yes Issues Hospital Issues and Management Plan: None anticipated. DVT/VTE - Prophylaxis VTE/DVT Device ordered at admit?: No VTE/DVT Prophylaxis med ordered at admit?: Yes
[2025-08-13] MEDS: LACTATED RINGERS 500 ML IV ONE (10:07)
--- NOTE | 2025-08-13 11:31 | PHARMACY PROGRESS NOTE ---
Vancomycin Therapy Monitoring Patient Information Vancomycin Pt Height (inches): 68 Vancomycin Patient Weight (kg): 86.7 Vanco Rx Serum Creatinine (mg/dL): 1.1 Vancomycin Therapy BUN (mg/dL): 28 Vancomycin Therapy Calculated Creatinine Cl (ml/min): 70 Concurrent Antibiotics: ZOSYN Vancomycin Therapy Goals Treatment Indication: SEPSIS/EMPIRIC Vancomycin Target Range: Vancomycin AUC Target Range 400-600 mcg*h/ml Assessment of Current Therapy Vancomycin Loading Dose (GM, if applicable): 2G Current Vancomycin Maintenance Regimen (if applicable): 1G Q12H Vancomycin Current Regimen: Subtherapeutic Levels Estimated Cmax (Peak, mcg/ml): 29.5 Estimated Cmin (Trough, mcg/ml): 18.7 Estimated AUC (mcg*hr/ml): 569 Plan: Pharmacy recommendation: Continue current regimen Vancomycin Level Recommendation: Vancomycin Level Recommendation (TROUGH 12/24 BEFORE NOON DOSE OR RANDOM IF RENAL FUNCTION WORSENS) Areas for additonal monitoring Areas for additional monitoring: Therapy de-escalation based on culture results, QT prolonging medications used in combination and Acute Kidney Injury
[2025-08-13] MEDS: NOREPINEPHRINE/0.9 % NS 8 MG/250 ML BAG IV SCH (11:41)
--- OUTSIDE RECORDS SUMMARY | 2025-08-13 11:54 | EXTERNAL MEDICAL SUMMARY RPT | Continuity of Care Document ---
Author Organization [facility] Address [address] [place] [id number] Phone Allergies and Intolerances date description facility reaction severity 2025-02-18 10:00 [id number]^fluconazo le^^flucon azole^^allergy.id [facility] Unknown (no severity) 2025-05-10 10:00 [id number]^fluconazo le^^flucon azole^^allergy.id [facility] Unknown (no severity) 2025-06-07 10:00 [id number]^fluconazo le^^flucon azole^^allergy.id [facility] Unknown (no severity) 2025-08-13 10:00 [id number]^fluconazo le^^flucon azole^^allergy.id [facility] Unknown (no severity) Problems date description facility 2025-05-31 11:58 [facility] 2025-05-31 11:58 Iron deficiency anemia, unspeci fied [facility] 2025-05-31 11:58 [facility]25-[facility]-31 12:00 [facility] 2025-05-31 12:00 Iron deficiency [facility], [facility]speci fied [facility] 2025-05-31 12:00 [facility] 2025-05-31 12:35 [facility] 2025-05-31 12:35 Iron deficiency anemia, [facility]speci fied [facility] 2025-05-31 12:35 [facility]ination [facility] 2025-05-31 13:43 Cellulitis of left lower limb [facility] 2025-05-31 13:43 Other specified soft tissue dis orders [facility] 2025-05-31 13:52 Malignant neoplasm of prostate [facility] 2025-06-01 11:02 Cellulitis of left lower limb [facility] 2025-06-01 11:02 Other specified soft tissue dis [facility] 2025-06-04 13:08 Malignant neoplasm of prostate [facility] 2025-06-07 14:13 Essential (primary) [facility]ensio n [facility] 2025-06-07 14:13 [facility] left lower [facility] 2025-06-07 14:13 Cellulitis of unspecified part of limb [facility] 2025-07-03 10:28 Malignant neoplasm of prostate [facility] 2025-07-03 10:28 Iron deficiency anemia, unspeci fied [...] alth 2025-07-12 12:58 [facility] 2025-07-12 12:58 Iron deficiency anemia, [facility]speci fied [facility] 2025-07-12 12:58 Urgency of urination [facility] 2025-07-17 11:26 Malignant neoplasm of prostate [facility] 2025-08-13 09:25 Sepsis, unspecified organism [facility] 2025-08-13 09:25 Pneumonia, unspecified organism [facility] 2025-08-13 09:33 Sepsis, unspecified organism [facility] 2025-08-13 09:33 Pneumonia, unspecified organism [facility] 2025-08-13 11:14 Sepsis, unspecified organism [facility] 2025-08-13 11:14 Pneumonia, unspecified organism [facility] 2025-08-13 11:34 Sepsis, unspecified organism [facility] 2025-08-13 11:34 Pneumonia, unspecified organism [facility] Results/Labs test date facility value unit notes Result panel 1 NUCLEATED RED BLOOD CELLS AUTO 2025-05-31 11:34 [facility] 0.0 /100wbc (missing) BASOPHILS # (AUTO) 2025-05-31 11:34 [facility] 0.0 10 3/ul (missing) NRBC ABSOLUTE COUNT (AUTO) 2025-05-31 11:34 [facility] 0.00 x10 3/ul (missing) PSA TOTAL 2025-05-31 11:34 [facility] 0.072 ng/ml [facility] uses a WHO cutoff value of 2.0 ng/mL. EOSINOPHILS # (AUTO) 2025-05-31 11:34 [facility] 0.1 10 3/ul (missing) MONOCYTES # (AUTO) 2025-05-31 11:34 [facility] 0.5 10 3/ul (missing) BILIRUBIN,TOTAL 2025-05-31 11:34 [facility] 0.5 mg/dl As of February 2023 testing method has changed, this may include reference ranges. CREATININE 2025-05-31 11:34 [facility] 0.8 mg/dl As of February 2023 testing method has changed, this may include reference ranges. LYMPHOCYTES # (AUTO) 2025-05-31 11:34 [facility] 1.7 10 3/ul (missing) ALBUMIN/GLOBULIN RATIO 2025-05-31 11:34 [facility] 1.9 (missing) (missing) CHLORIDE 2025-05-31 11:34 [facility] 103 mmol/l As of February 2023 testing method has changed, this may include reference ranges. HGB - HEMOGLOBIN 2025-05-31 11:34 [facility] 11.4 g/dl (missing) SODIUM 2025-05-31 11:34 [facility] 137 mmol/l Unknown BUN - BLOOD UREA NITROGEN 2025-05-31 11:34 [facility] 14 mg/dl As of February 2023 testing method has changed, this may include reference ranges. ALT ALANINE AMINOTRANSFERASE 2025-05-31 11:34 [facility] 15 iu/l As of February 2023 testing method has changed, this may include reference ranges. GLUCOSE 2025-05-31 11:34 [facility] 151 mg/dl As of February 2023 testing method has changed, this may include reference ranges. AST ASPARTATE AMINOTRANSFERASE 2025-05-31 11:34 [facility] 17 iu/l As of February 2023 testing method has changed, this may include reference ranges. GLOBULIN 2025-05-31 11:34 [facility] 2.3 g/dl (missing) RED CELL DISTRIBUTION WIDTH 2025-05-31 11:34 [facility] 21.1 % (missing) MEAN CORPUSCULAR HEMOGLOBIN 2025-05-31 11:34 [facility] 25.3 pg (missing) TRANSFERRIN 2025-05-31 11:34 [facility] 268 mg/dl As of February 2023 testing method has changed, this may include reference ranges. CARBON DIOXIDE - CO2 2025-05-31 11:34 [facility] 28 mmol/l As of February 2023 testing method has changed, this may include reference ranges. MEAN CORPUSCULAR HGB CONC 2025-05-31 11:34 [facility] 29.8 g/dl (missing) POTASSIUM 2025-05-31 11:34 [facility] 3.6 mmol/l As of February 2023 testing method has changed, this may include reference ranges. IRON 2025-05-31 11:34 [facility] 32 ug/dl As of February 2023 testing method has changed, this may include reference ranges. TOTAL IRON BINDING CAPACITY 2025-05-31 11:34 [facility] 375 ug/dl (missing) HCT - HEMATOCRIT 2025-05-31 11:34 [facility] 38.2 % (missing) ALBUMIN 2025-05-31 11:34 [facility] 4.4 g/dl As of February 2023 testing method has changed, this may include reference ranges. RED BLOOD COUNT 2025-05-31 11:34 [facility] 4.51 10 6/ul (missing) NEUTROPHILS # (AUTO) 2025-05-31 11:34 [facility] 5.9 10 3/ul (missing) ANION GAP 2025-05-31 11:34 [facility] 6.0 (missing) (missing) TOTAL PROTEIN 2025-05-31 11:34 [facility] 6.7 g/dl As of February 2023 testing method has changed, this may include reference ranges. FERRITIN 2025-05-31 11:34 [facility] 68.9 ng/ml (missing) ALKALINE PHOSPHATASE 2025-05-31 11:34 [facility] 79 iu/l As of February 2023 testing method has changed, this may include reference ranges. WHITE BLOOD COUNT 2025-05-31 11:34 [facility] 8.2 x10 3/ul (missing) MEAN CORPUSCULAR VOLUME 2025-05-31 11:34 [facility] 84.7 fl (missing) % IRON SATURATION 2025-05-31 11:34 [facility] 9 % (missing) CALCIUM 2025-05-31 11:34 [facility] 9.6 mg/dl As of February 2023 testing method has changed, this may include reference ranges. PLT - PLATELET COUNT 2025-05-31 11:34 [facility] 91 10 3/ul (missing) GFR - MDRD 2025-05-31 11:34 [facility] 94 (missing) The IDMS-traceable MDRD Study Equation [...] NUCLEATED RED BLOOD CELLS AUTO 2025-07-10 14:00 [facility] 0.0 /100wbc (missing) BASOPHILS # (AUTO) 2025-07-10 14:00 [facility] 0.0 10 3/ul (missing) EOSINOPHILS # (AUTO) 2025-07-10 14:00 [facility] 0.0 10 3/ul (missing) NRBC ABSOLUTE COUNT (AUTO) 2025-07-10 14:00 [facility] 0.00 x10 3/ul (missing) MONOCYTES # (AUTO) 2025-07-10 14:00 [facility] 0.8 10 3/ul (missing) LYMPHOCYTES # (AUTO) 2025-07-10 14:00 [facility] 0.8 10 3/ul (missing) NEUTROPHILS # (AUTO) 2025-07-10 14:00 [facility] 10.3 10 3/ul (missing) PLT - PLATELET COUNT 2025-07-10 14:00 [facility] 118 10 3/ul (missing) WHITE BLOOD COUNT 2025-07-10 14:00 [facility] 12.0 x10 3/ul (missing) HGB - HEMOGLOBIN 2025-07-10 14:00 [facility] 13.4 g /dl (missing) IRON 2025-07-10 14:00 [facility] 18 ug/dl As of February 2023 testing method has changed, this may include reference ranges. RED CELL DISTRIBUTION WIDTH 2025-07-10 14:00 [facility] 19.2 % (missing) TRANSFERRIN 2025-07-10 14:00 [facility] 202 mg/dl As of February 2023 testing method has changed, this may include reference ranges. FERRITIN 2025-07-10 14:00 [facility] 256.5 ng/ml (missing) MEAN CORPUSCULAR HEMOGLOBIN 2025-07-10 14:00 [facility] 26.2 pg (missing) TOTAL IRON BINDING CAPACITY 2025-07-10 14:00 [facility] 283 ug/dl (missing) MEAN CORPUSCULAR HGB CONC 2025-07-10 14:00 [facility] 31.2 g/dl (missing) HCT - HEMATOCRIT 2025-07-10 14:00 [facility] 43.0 % (missing) RED BLOOD COUNT 2025-07-10 14:00 [facility] 5.11 10 6/ul (missing) % IRON SATURATION 2025-07-10 14:00 [facility] 6 % (missing) MEAN CORPUSCULAR VOLUME 2025-07-10 14:00 [facility] 84.1 fl (missing) MEAN PLATELET VOLUME 2025-07-10 14:00 [facility] 9.9 fl (missing) Result panel 3 ABNORMAL LYMPHS % (MANUAL) 2025-08-13 06:55 [facility] 0 % (missing) NUCLEATED RED BLOOD CELLS AUTO 2025-08-13 06:55 [facility] 0.0 /100wbc (missing) BASOPHILS # (MANUAL) 2025-08-13 06:55 [facility] 0.0 10 3/ul (missing) EOSINOPHILS # (MANUAL) 2025-08-13 06:55 [facility] 0.0 10 3/ul (missing) EOSINOPHILS # (AUTO) 2025-08-13 06:55 [facility] 0.0 10 3/ul (missing) NRBC ABSOLUTE COUNT (AUTO) 2025-08-13 06:55 [facility] 0.00 x10 3/ul (missing) BASOPHILS # (AUTO) 2025-08-13 06:55 [facility] 0.1 10 3/ul (missing) MONOCYTES # (MANUAL) 2025-08-13 06:55 [facility] 0.2 10 3/ul (missing) MONOCYTES # (AUTO) 2025-08-13 06:55 [facility] 0.7 10 3/ul (missing) REACTIVE LYMPHS % (MANUAL) 2025-08-13 06:55 [facility] 1 % (missing) CREATININE 2025-08-13 06:55 [facility] As of February 2023 testing method has changed, this may include reference ranges. BILIRUBIN,TOTAL 2025-08-13 06:55 [facility] 1.2 mg/dl As of February 2023 testing method has changed, this may include reference ranges. LYMPHOCYTES # (AUTO) 2025-08-13 06:55 [facility] 1.4 10 3/ul (missing) LYMPHOCYTES # (MANUAL) 2025-08-13 06:55 [facility] 1.4 10 3/ul (missing) MAGNESIUM 2025-08-13 06:55 [facility] 1.8 mg/dl As of February 2023 testing method has changed, this may include reference ranges. GLOBULIN 2025-08-13 06:55 [facility] 1.9 g/dl (missing) MEAN PLATELET VOLUME 2025-08-13 06:55 [facility] 10.0 fl (missing) CALCIUM 2025-08-13 06:55 [facility] 10.0 mg/[facility] As of February 2023 testing method has changed, this may include reference ranges. TROPONIN I HIGH SENSITIVITY 2025-08-13 06:55 [facility] 10.5 ng/l A HIGH SENSITIVITY TROPONIN result of >= 14.9 ng/L for females is considered POSITIVE. A HIGH SENSITIVITY TROPONIN result of >= 19.8 ng/L for males is considered POSITIVE. A HIGH SENSITIVITY TROPONIN result of >= 17.9 ng/L for unspecified is considered POSITIVE. TOTAL CELLS COUNTED 2025-08-13 06:55 [facility] 100 (missing ) (missing) CHLORIDE 2025-08-13 06:55 [facility] 104 mmol/l As of February 2023 testing method has changed, this may include reference ranges. ANION GAP 2025-08-13 06:55 [facility] 12.0 (missing ) (missing) HGB - HEMOGLOBIN 2025-08-13 06:55 [facility] 14.2 g/dl (missing) SODIUM 2025-08-13 06:55 [facility] 140 mmol/l (missing) GLUCOSE 2025-08-13 06:55 [facility] 148 mg/dl As of February 2023 testing method has changed, this may include reference ranges. BAND NEUTROPHILS % (MANUAL) 2025-08-13 06:55 [facility] 15 % (missing) RED CELL DISTRIBUTION WIDTH 2025-08-13 06:55 [facility] 19.3 % (missing) METAMYELOCYTES % (MANUAL) 2025-08-13 06:55 [facility] 2 % (missing) INR 2025-08-13 06:55 [facility] 2.1 (missing ) Oral Anticoagulant Indication INR range Venous Thrombosis, P.E. 2.0 - 3.0 Mechanical Valve 2.5 - 3.5 ALBUMIN/GLOBULIN RATIO 2025-08-13 06:55 [facility] 2.3 (missing ) (missing) NEUTROPHILS # (AUTO) 2025-08-13 06:55 [facility] 21.7 10 3/ul (missing) NEUTROPHILS # (MANUAL) 2025-08-13 06:55 [facility] 21.8 10 3/ul (missing) PT - PROTHROMBIN TIME 2025-08-13 06:55 [facility] 23.1 secs Y COUMADIN ALT ALANINE AMINOTRANSFERASE 2025-08-13 06:55 [facility] 24 iu/l As of February 2023 testing method has changed, this may include reference ranges. CARBON DIOXIDE - CO2 2025-08-13 06:55 [facility] 24 mmol/l As of February 2023 testing method has changed, this may include reference ranges. WHITE BLOOD COUNT 2025-08-13 06:55 [facility] 24.0 x10 3/ul (missing) MEAN CORPUSCULAR HEMOGLOBIN 2025-08-13 06:55 [facility] 26.5 pg (missing) BUN - BLOOD UREA NITROGEN 2025-08-13 06:55 [facility] 28 mg/dl As of February 2023 testing method has changed, this may include reference ranges. POTASSIUM 2025-08-13 06:55 [facility] 3.6 mmol/l As of February 2023 testing method has changed, this may include reference ranges. LIPASE 2025-08-13 06:55 [facility] 31 u/l As of February 2023 testing method has changed, this may include reference ranges. MEAN CORPUSCULAR HGB CONC 2025-08-13 06:55 [facility] 31.3 g/dl (missing) AST ASPARTATE AMINOTRANSFERASE 2025-08-13 06:55 [facility] 39 iu/l As of February 2023 testing method has changed, this may include reference ranges. RBC MORPHOLOGY (MULTIPLE) 2025-08-13 06:55 [facility] 4+ ANISOCYTOSIS (missing ) (missing) ALBUMIN 2025-08-13 06:55 [facility] 4.4 g/dl As of February 2023 testing method has changed, this may include reference ranges. HCT - HEMATOCRIT 2025-08-13 06:55 [facility] 45.3 % (missing) RED BLOOD COUNT 2025-08-13 06:55 [facility] 5.35 10 6/ul (missing) TOTAL PROTEIN 2025-08-13 06:55 [facility] 6.3 g/dl As of February 2023 testing method has changed, this may include reference ranges. GFR - MDRD 2025-08-13 06:55 [facility] 65 (missing ) The IDMS-traceable MDRD Study [...] last updated October 2011. ALKALINE PHOSPHATASE 2025-08-13 06:55 [facility] 78 iu/l As of February 2023 testing method has changed, this may include reference ranges. MEAN CORPUSCULAR VOLUME 2025-08-13 06:55 [facility] 84.7 fl (missing) PLT - PLATELET COUNT 2025-08-13 06:55 [facility] 87 10 3/ul (missing) PLATELET ESTIMATE, MANUAL 2025-08-13:55 [facility] DECREASED (<130,000) (missing ) (missing) DIFFERENTIAL COMMENT 2025-08-13 06:55 [facility] MANUAL DIFFERENTIAL (missing ) (missing) Result panel 4 ADENOVIRUS - RESP PCR PANEL 2025-08-13 07:02 [facility] DETECTED (missing) NO Y NO YES NO NO NO NO Adenovirus detected by the [employer] RP2.1 Panel, a multiplexed nucleic acid test intended for the simultaneous qualitative detection and differentiation of nucleic acids from multiple viral and bacterial respiratory organisms. SARS-CoV-2 -RESP PCR PANEL 2025-08-13: [facility] NOT DETECTED (missing) A negative test result for this test indicates that SARS-CoV-2 RNA was not present in the specimen above the limit of detection. Testing performed on the [employer] RP2.1 Panel, a multiplexed nucleic acid repiratory [...] virus. INFLUENZA A- RESP PCR PANEL 2025-08-13 07:02 [facility] NOT DETECTED (missing) Influenza A including subtypes H1, H3, and H1-2009 not detected by the [employer] RP2.1 Panel, a multiplexed nucleic acid test intended for the simultaneous qualitative detection and differentiation of nucleic acids from multiple viral and bacterial respiratory organisms. B. PARAPERTUSSIS- RESP PCR MEDINA 2025-08-13 07:02 [facility] NOT DETECTED (missing) Negative results for this organism do not preclude infection with this organism and may require additional laboratory testing (e.g., bacterial and viral culture, immunofluorescence, and radiography) when evaluating a patient with possible respiratory tract infection. B. PERTUSSIS- RESP PCR PANEL 2025-08-13 07:02 [facility] NOT DETECTED (missing) Negative results for this organism do not preclude infection with this organism and may require additional laboratory testing (e.g., bacterial and viral culture, immunofluorescence, and radiography) when evaluating a patient with possible respiratory tract infection. C. PNEUMONIAE- RESP PCR PANEL 2025-08-13 07:02 [facility] NOT DETECTED (missing) Negative results for this organism do not preclude infection with this organism and may require additional laboratory testing (e.g., bacterial and viral culture, immunofluorescence, and radiography) when evaluating a patient with possible respiratory tract infection. M. PNEUMONIAE- RESP PCR PANEL 2025-08-13 07:02 [facility] NOT DETECTED (missing) Negative results for this organism do not preclude infection with this organism and may require additional laboratory testing (e.g., bacterial and viral culture, immunofluorescence, and radiography) when evaluating a patient with possible respiratory tract infection. CORONAVIRUS 229E-RESP PCR 2025-08-13 07:02 [facility] NOT DETECTED (missing) Negative results in the setting ofa respiratory illness may be due to infection with pathogens not detected by this test, or lower respiratory tract infection that may not be detected by nasopharyngeal specimen. CORONAVIRUS HKU1-RESP PCR 2025-08-13 07:02 [facility] NOT DETECTED (missing) Negative results in the setting ofa respiratory illness may be due to infection with pathogens not detected by this test, or lower respiratory tract infection that may not be detected by nasopharyngeal specimen. CORONAVIRUS [id number]-[id number] PCR 2025-08-13 07:02 [facility] NOT DETECTED (missing) Negative results in the setting ofa respiratory illness may be due to infection with pathogens not detected by this test, or lower respiratory tract infection that may not be detected by nasopharyngeal specimen. CORONAVIRUS [id number] PCR 2025-08-13 07:02 [facility] NOT DETECTED (missing) Negative results in the setting ofa respiratory illness may be due to infection with pathogens not detected by this test, or lower respiratory tract infection that may not be detected by nasopharyngeal specimen. HUMAN METAPNEUMOVIRUS 2025-08-13 07:02 [facility] NOT DETECTED (missing) Negative results in the setting ofa respiratory illness may be due to infection with pathogens not detected by this test, or lower respiratory tract infection that may not be detected by nasopharyngeal specimen. INFLUENZA B - RESP PCR PANEL 2025-08-13 07:02 [facility] NOT DETECTED (missing) Negative results in the setting ofa respiratory illness may be due to infection with pathogens not detected by this test, or lower respiratory tract infection that may not be detected by nasopharyngeal specimen. PARAINFLUENZA VIRUS 1 2025-08-13 07:02 [facility] NOT DETECTED (missing) Negative results in the setting ofa respiratory illness may be due to infection with pathogens not detected by this test, or lower respiratory tract infection that may not be detected by nasopharyngeal specimen. PARAINFLUENZA VIRUS 2 2025-08-13 07:02 [facility] NOT DETECTED (missing) Negative results in the setting ofa respiratory illness may be due to infection with pathogens not detected by this test, or lower respiratory tract infection that may not be detected by nasopharyngeal specimen. PARAINFLUENZA VIRUS 3 2025-08-13 07:02 [facility] NOT DETECTED (missing) Negative results in the setting ofa respiratory illness may be due to infection with pathogens not detected by this test, or lower respiratory tract infection that may not be detected by nasopharyngeal specimen. PARAINFLUENZA VIRUS 4 2025-08-13 07:02 [facility] NOT DETECTED (missing) Negative results in the setting ofa respiratory illness may be due to infection with pathogens not detected by this test, or lower respiratory tract infection that may not be detected by nasopharyngeal specimen. RHINOVIRUS/ENTEROVI CJ 2025-08-13 07:02 [facility] NOT DETECTED (missing) Negative results in the setting ofa respiratory illness may be due to infection with pathogens not detected by this test, or lower respiratory tract infection that may not be detected by nasopharyngeal specimen. RSV- RESP PCR PANEL 2025-08-13 07:02 [facility] NOT DETECTED (missing) Negative results in the setting ofa respiratory illness may be due to infection with pathogens not detected by this test, or lower respiratory tract infection that may not be detected by nasopharyngeal specimen. Result panel 5 PROCALCITONIN 2025-08-13 07:30 [facility] 20.26 ng/ml Critical result PrCT 20.26 ng/mL called to and read back by Dr. Stan [place] at 13-Aug-2025 08:24 by [facility]. PCT Concentration (ng/mL) Children >72hrs old and [...] to 24hours. LACTIC ACID, VENOUS 2025-08-13 07:30 [facility] 3.7 mmol/l N Critical result LA C 3.7 mmol/L called to and read back by Dr. Stan [facility] at 13-Aug-2025 08:16 by annie. As of February 2023 testing method has changed, this may include reference ranges. Result panel 6 LACTIC ACID, VENOUS 2025-08-13 10:44 [facility] 4.2 mmol/l N Critical result LAC 4.2 mmol/L called to and read back by RODNEY Johnston/IZAIAH/ED at 13-Aug-2025 11:11 by gildardo. As of February 2023 testing method has changed, this may include reference ranges. LACTIC ACID, VENOUS 2025-08-13 10:44 [facility] 4.2 mmol/l N Critical result LAC 4.2 mmol/L called to and read back by RODNEY [facility]/IZAIAH/ED at 13-Aug-2025 11:11 by gildardo. GROSS HEMOLYSIS MAY AFFECT RESULTS As of February 2023 testing method has changed, this may include reference ranges. Social History date description facility
--- NOTE | 2025-08-13 12:26 | XRAY Report ---
INDICATIONS: RIJ CVC TECHNIQUE: 2 views of the chest was acquired. COMPARISON: Same day chest radiograph 08/13/2025 at 0701 hours FINDINGS: Surgical changes and devices: Interval placement of right IJ catheter with distal tip projecting over the lower SVC. Left chest wall AICD with cardiac leads. TAVR. Lungs and pleura: No pleural effusions or pneumothorax. Left basilar atelectasis. Mediastinum: Mediastinal contours appear normal. Heart size is normal. Bones and chest wall: No suspicious bony lesions. Overlying soft tissues appear unremarkable. IMPRESSION: Right central venous catheter with distal tip projecting in appropriate position. No pneumothorax. Reviewed by: Kayleen Hill MD, PhD on 08/13/2025 12:23 PM PST Approved by: Kayleen Hill MD, PhD on 08/13/2025 12:23 PM PST Station ID: [id number]
[2025-08-13] MEDS ORDERED: ONDANSETRON 4 MG/2 ML VIAL IVP PRN ×2 (12:27→13:50)
[2025-08-13] MEDS ORDERED: LACTATED RINGERS 1,000 ML IV SCH (12:27)
[2025-08-13] MEDS ORDERED: ONDANSETRON ODT 4 MG TABLET TL PRN ×2 (12:27→13:50)
--- OUTSIDE RECORDS SUMMARY | 2025-08-13 12:28 | EXTERNAL MEDICAL SUMMARY RPT | Continuity of Care Document ---
Author Organization [facility] Address [address] [place] [id number] Phone Allergies and Intolerances date description facility reaction severity 2025-02-18 10:00 [id number]^fluconazo le^^flucon azole^^allergy.id [facility] Unknown (no severity) 2025-05-10 10:00 [id number]^fluconazo le^^flucon azole^^allergy.id [facility] Unknown (no severity) 2025-06-07 10:00 [id number]^fluconazo le^^flucon azole^^allergy.id [facility] Unknown (no severity) 2025-08-13 10:00 [id number]^fluconazo le^^flucon azole^^allergy.id [facility] Unknown (no severity) Problems date description facility 2025-05-31 11:58 [facility]25-05-[facility] 11:58 Iron deficiency anemia, unspeci fied [facility] 2025-05-31 11:58 [facility] 2025-05-31 12:00 [facility] 2025-05-31 12:00 Iron deficiency anemia, unspeci fied [facility] 2025-05-31 12:00 [facility] 2025-05-31 12:35 [facility] 2025-05-31 12:35 Iron deficiency anemia, unspeci fied [facility] 2025-05-31 12:35 [facility] urination [facility] 2025-05-31 13:43 Cellulitis of left lower limb [facility] 2025-05-31 13:43 Other specified soft tissue dis orders [facility] 2025-05-31 13:52 Malignant neoplasm of prostate [facility] 2025-06-01 11:02 Cellulitis of left lower limb [facility] 2025-06-01 11:02 Other specified soft tissue dis [facility] 2025-06-04 13:08 Malignant ne[facility] 2025-06-07 14:13 Essential (primary) [facility]ensio n [facility] 2025-06-07 14:13 [facility] 2025-[facility]-07 14:13 Cellulitis of unspecified part of limb [facility] 2025-07-03 10:28 [facility]ignant neoplasm of prostate [facility] 2025-07-03 10:28 Iron deficiency anemia, unspeci [...] alth 2025-07-12 12:50 [facility] 2025-07-12 12:50 Iron deficiency anemia, unspeci fied [facility] 2025-07-12 12:50 Urgency of urination [facility] 2025-07-12 12:58 [facility] 2025-07-12 12:58 Iron deficiency anemia, unspeci fied [facility] 2025-07-12 12:58 Urgency of urination [facility] 2025-07-17 11:26 Malignant neoplasm of prostate [facility] 2025-08-13 09:25 [facility]epsis, [facility] 2025-08-13 09:25 Pneumonia, unspecified organism [facility] 2025-08-13 09:33 [facility]epsis, unspecified [facility] 2025-08-13 09:33 Pneumonia, unspecified organism [facility] 2025-08-13 11:14 Sepsis, unspecified organism [facility] 2025-08-13 11:14 Pneumonia, unspecified organism [facility] 2025-08-13 11:34 [facility], unspecified [facility] 2025-08-13 11:34 Pneumonia, unspecified [facility] 2025-08-13 11:52 [facility]is, unspecified [facility] 2025-08-13 11:52 Pneumonia, unspecified organism [facility] 2025-08-13 12:20 Sepsis, unspecified organism [facility] 2025-08-13 12:20 Pneumonia, unspecified organism [facility] Results/Labs test date facility value unit notes Result panel 1 NUCLEATED RED BLOOD CELLS AUTO 2025-05-31 11:34 [facility] 0.0 /100wbc (missing) BASOPHILS # (AUTO) 2025-05-31 11:34 [facility] 0.0 10 3/ul (missing) NRBC ABSOLUTE COUNT (AUTO) 2025-05-31 11:34 [facility] 0.00 x10 3/ul (missing) PSA TOTAL 2025-05-31 11:34 [facility] 0.072 ng/ml [facility] uses a WHO cutoff value of 2.0 ng/mL. EOSINOPHILS # (AUTO) 2025-05-31 11:34 [facility] 0.1 10 3/ul (missing) MONOCYTES # (AUTO) 2025-05-31 11:34 [facility] 0.5 10 3/ul (missing) BILIRUBIN,TOTAL 2025-05-31 11:34 [facility] 0.5 mg/dl As of February 2023 testing method has changed, this may include reference ranges. CREATININE 2025-05-31 11:34 [facility] 0.8 mg/dl As of February 2023 testing method has changed, this may include reference ranges. LYMPHOCYTES # (AUTO) 2025-05-31 11:34 [facility] 1.7 10 3/ul (missing) ALBUMIN/GLOBULIN RATIO 2025-05-31 11:34 [facility] 1.9 (missing) (missing) CHLORIDE 2025-05-31 11:34 [facility] 103 mmol/l As of February 2023 testing method has changed, this may include reference ranges. HGB - HEMOGLOBIN 2025-05-31 11:34 [facility] 11.4 g/dl (missing) SODIUM 2025-05-31 11:34 [facility] 137 mmol/l Unknown BUN - BLOOD UREA NITROGEN 2025-05-31 11:34 [facility] 14 mg/dl As of February 2023 testing method has changed, this may include reference ranges. ALT ALANINE AMINOTRANSFERASE 2025-05-31 11:34 [facility] 15 iu/l As of February 2023 testing method has changed, this may include reference ranges. GLUCOSE 2025-05-31 11:34 [facility] 151 mg/dl As of February 2023 testing method has changed, this may include reference ranges. AST ASPARTATE AMINOTRANSFERASE 2025-05-31 11:34 [facility] 17 iu/l As of February 2023 testing method has changed, this may include reference ranges. GLOBULIN 2025-05-31 11:34 [facility] 2.3 g/dl (missing) RED CELL DISTRIBUTION WIDTH 2025-05-31 11:34 [facility] 21.1 % (missing) MEAN CORPUSCULAR HEMOGLOBIN 2025-05-31 11:34 [facility] 25.3 pg (missing) TRANSFERRIN 2025-05-31 11:34 [facility] 268 mg/dl As of February 2023 testing method has changed, this may include reference ranges. CARBON DIOXIDE - CO2 2025-05-31 11:34 [facility] 28 mmol/l As of February 2023 testing method has changed, this may include reference ranges. MEAN CORPUSCULAR HGB CONC 2025-05-31 11:34 [facility] 29.8 g/dl (missing) POTASSIUM 2025-05-31 11:34 [facility] 3.6 mmol/l As of February 2023 testing method has changed, this may include reference ranges. IRON 2025-05-31 11:34 [facility] 32 ug/dl As of February 2023 testing method has changed, this may include reference ranges. TOTAL IRON BINDING CAPACITY 2025-05-31 11:34 [facility] 375 ug/dl (missing) HCT - HEMATOCRIT 2025-05-31 11:34 [facility] 38.2 % (missing) ALBUMIN 2025-05-31 11:34 [facility] 4.4 g/dl As of February 2023 testing method has changed, this may include reference ranges. RED BLOOD COUNT 2025-05-31 11:34 [facility] 4.51 10 6/ul (missing) NEUTROPHILS # (AUTO) 2025-05-31 11:34 [facility] 5.9 10 3/ul (missing) ANION GAP 2025-05-31 11:34 [facility] 6.0 (missing) (missing) TOTAL PROTEIN 2025-05-31 11:34 [facility] 6.7 g/dl As of February 2023 testing method has changed, this may include reference ranges. FERRITIN 2025-05-31 11:34 [facility] 68.9 ng/ml (missing) ALKALINE PHOSPHATASE 2025-05-31 11:34 [facility] 79 iu/l As of February 2023 testing method has changed, this may include reference ranges. WHITE BLOOD COUNT 2025-05-31 11:34 [facility] 8.2 x10 3/ul (missing) MEAN CORPUSCULAR VOLUME 2025-05-31 11:34 [facility] 84.7 fl (missing) % IRON SATURATION 2025-05-31 11:34 [facility] 9 % (missing) CALCIUM 2025-05-31 11:34 [facility] 9.6 mg/dl As of February 2023 testing method has changed, this may include reference ranges. PLT - PLATELET COUNT 2025-05-31 11:34 [facility] 91 10 3/ul (missing) GFR - MDRD 2025-05-31 11:34 [facility] 94 (missing) The IDMS-traceable MDRD Study Equation [...] NUCLEATED RED BLOOD CELLS AUTO 2025-07-10 14:00 [facility] 0.0 /100wbc (missing) BASOPHILS # (AUTO) 2025-07-10 14:00 [facility] 0.0 10 3/ul (missing) EOSINOPHILS # (AUTO) 2025-07-10 14:00 [facility] 0.0 10 3/ul (missing) NRBC ABSOLUTE COUNT (AUTO) 2025-07-10 14:00 [facility] 0.00 x10 3/ul (missing) MONOCYTES # (AUTO) 2025-07-10 14:00 [facility] 0.8 10 3/ul (missing) LYMPHOCYTES # (AUTO) 2025-07-10 14:00 [facility] 0.8 10 3/ul (missing) NEUTROPHILS # (AUTO) 2025-07-10 14:00 [facility] 10.3 10 3/ul (missing) PLT - PLATELET COUNT 2025-07-10 14:00 [facility] 118 10 3/ul (missing) WHITE BLOOD COUNT 2025-07-10 14:00 [facility] 12.0 x10 3/ul (missing) HGB - HEMOGLOBIN 2025-07-10 14:00 [facility] 13.4 g /dl (missing) IRON 2025-07-10 14:00 [facility] 18 ug/dl As of February 2023 testing method has changed, this may include reference ranges. RED CELL DISTRIBUTION WIDTH 2025-07-10 14:00 [facility] 19.2 % (missing) TRANSFERRIN 2025-07-10 14:00 [facility] 202 mg/dl As of February 2023 testing method has changed, this may include reference ranges. FERRITIN 2025-07-10 14:00 [facility] 256.5 ng/ml (missing) MEAN CORPUSCULAR HEMOGLOBIN 2025-07-10 14:00 [facility] 26.2 pg (missing) TOTAL IRON BINDING CAPACITY 2025-07-10 14:00 [facility] 283 ug/dl (missing) MEAN CORPUSCULAR HGB CONC 2025-07-10 14:00 [facility] 31.2 g/dl (missing) HCT - HEMATOCRIT 2025-07-10 14:00 [facility] 43.0 % (missing) RED BLOOD COUNT 2025-07-10 14:00 [facility] 5.11 10 6/ul (missing) % IRON SATURATION 2025-07-10 14:00 [facility] 6 % (missing) MEAN CORPUSCULAR VOLUME 2025-07-10 14:00 [facility] 84.1 fl (missing) MEAN PLATELET VOLUME 2025-07-10 14:00 [facility] 9.9 fl (missing) Result panel 3 ABNORMAL LYMPHS % (MANUAL) 2025-08-13 06:55 [facility] 0 % (missing) NUCLEATED RED BLOOD CELLS AUTO 2025-08-13 06:55 [facility] 0.0 /100wbc (missing) BASOPHILS # (MANUAL) 2025-08-13 06:55 [facility] 0.0 10 3/ul (missing) EOSINOPHILS # (MANUAL) 2025-08-13 06:55 [facility] 0.0 10 3/ul (missing) EOSINOPHILS # (AUTO) 2025-08-13 06:55 [facility] 0.0 10 3/ul (missing) NRBC ABSOLUTE COUNT (AUTO) 2025-08-13 06:55 [facility] 0.00 x10 3/ul (missing) BASOPHILS # (AUTO) 2025-08-13 06:55 [facility] 0.1 10 3/ul (missing) MONOCYTES # (MANUAL) 2025-08-13 06:55 [facility] 0.2 10 3/ul (missing) MONOCYTES # (AUTO) 2025-08-13 06:55 [facility] 0.7 10 3/ul (missing) REACTIVE LYMPHS % (MANUAL) 2025-08-13 06:55 [facility] 1 % (missing) CREATININE 2025-08-13 06:55 [facility] 1.1 mg/dl As of February 2023 testing method has changed, this may include reference ranges. BILIRUBIN,TOTAL 2025-08-13 06:55 [facility] 1.2 mg/dl As of February 2023 testing method has changed, this may include reference ranges. LYMPHOCYTES # (AUTO) 2025-08-13 06:55 [facility] 1.4 10 3/ul (missing) LYMPHOCYTES # (MANUAL) 2025-08-13 06:55 [facility] 1.4 10 3/ul (missing) MAGNESIUM 2025-08-13 06:55 [facility] 1.8 mg/dl As of February 2023 testing method has changed, this may include reference ranges. GLOBULIN 2025-08-13 06:55 [facility] 1.9 g/dl (missing) MEAN PLATELET VOLUME 2025-08-13 06:55 [facility] 10.0 fl (missing) CALCIUM 2025-08-13 06:55 [facility] 10.0 mg/dl As of February 2023 testing method has changed, this may include reference ranges. TROPONIN I HIGH SENSITIVITY 2025-08-13 06:55 [facility] 10.5 ng/l A HIGH SENSITIVITY TROPONIN result of >= 14.9 ng/L for females is considered POSITIVE. A HIGH SENSITIVITY TROPONIN result of >= 19.8 ng/L for males is considered POSITIVE. A HIGH SENSITIVITY TROPONIN result of >= 17.9 ng/L for unspecified is considered POSITIVE. TOTAL CELLS COUNTED 2025-08-13 06:55 [facility] 100 (missing ) (missing) CHLORIDE 2025-08-13 06:55 [facility] 104 mmol/l As of February 2023 testing method has changed, this may include reference ranges. ANION GAP 2025-08-13 06:55 [facility] 12.0 (missing ) (missing) HGB - HEMOGLOBIN 2025-08-13 06:55 [facility] 14.2 g/[facility] (missing) SODIUM 2025-08-13 06:55 [facility] 140 mmol/l (missing) GLUCOSE 2025-08-13 06:55 [facility] 148 mg/dl As of February 2023 testing method has changed, this may include reference ranges. BAND NEUTROPHILS % (MANUAL) 2025-08-13 06:55 [facility] 15 % (missing) RED CELL DISTRIBUTION WIDTH 2025-08-13 06:55 [facility] 19.3 % (missing) METAMYELOCYTES % (MANUAL) 2025-08-13 06:55 [facility] 2 % (missing) INR 2025-08-13 06:55 [facility] 2.1 (missing ) Oral Anticoagulant Indication INR range Venous Thrombosis, P.E. 2.0 - 3.0 Mechanical Valve 2.5 - 3.5 ALBUMIN/GLOBULIN RATIO 2025-08-13 06:55 [facility] 2.3 (missing ) (missing) NEUTROPHILS # (AUTO) 2025-08-13 06:55 [facility] 21.7 10 3/ul (missing) NEUTROPHILS # (MANUAL) 2025-08-13 06:55 [facility] 21.8 10 3/ul (missing) PT - PROTHROMBIN TIME 2025-08-13 06:55 [facility] 23.1 secs Y COUMADIN ALT ALANINE AMINOTRANSFERASE 2025-08-13 06:55 [facility] 24 iu/l As of February 2023 testing method has changed, this may include reference ranges. CARBON DIOXIDE - CO2 2025-08-13 06:55 [facility] 24 mmol/l As of February 2023 testing method has changed, this may include reference ranges. WHITE BLOOD COUNT 2025-08-13 06:55 [facility] 24.0 x10 3/ul (missing) MEAN CORPUSCULAR HEMOGLOBIN 2025-08-13 06:55 [facility] 26.5 pg (missing) BUN - BLOOD UREA NITROGEN 2025-08-13 06:55 [facility] 28 mg/dl As of February 2023 testing method has changed, this may include reference ranges. POTASSIUM 2025-08-13 06:55 [facility] 3.6 mmol/l As of February 2023 testing method has changed, this may include reference ranges. LIPASE 2025-08-13 06:55 [facility] 31 u/l As of February 2023 testing method has changed, this may include reference ranges. MEAN CORPUSCULAR HGB CONC 2025-08-13 06:55 [facility] 31.3 g/dl (missing) AST ASPARTATE AMINOTRANSFERASE 2025-08-13 06:55 [facility] 39 iu/l As of February 2023 testing method has changed, this may include reference ranges. RBC MORPHOLOGY (MULTIPLE) 2025-08-13 06:55 [facility] 4+ ANISOCYTOSIS (missing ) (missing) ALBUMIN 2025-08-13 06:55 [facility] 4.4 g/dl As of February 2023 testing method has changed, this may include reference ranges. HCT - HEMATOCRIT 2025-08-13 06:55 [facility] 45.3 % (missing) RED BLOOD COUNT 2025-08-13 06:55 [facility] 5.35 10 6/ul (missing) TOTAL PROTEIN 2025-08-13 06:55 [facility] 6.3 g/dl As of February 2023 testing method has changed, this may include reference ranges. GFR - MDRD 2025-08-13 06:55 [facility] 65 (missing ) The IDMS-traceable MDRD Study [...] ardization, last updated October 2011. ALKALINE PHOSPHATASE 2025-08-13:55 [facility] 78 iu/l As of February 2023 testing method has changed, this may include reference ranges. MEAN CORPUSCULAR VOLUME 2025-08-13 06:55 [facility] 84.7 fl (missing) PLT - PLATELET COUNT 2025-08-13 06: [facility] 87 10 3/ul (missing) PLATELET ESTIMATE, MANUAL 2025-08-13: [facility] DECREASED (<130,000) (missing ) (missing) DIFFERENTIAL COMMENT 2025-08-13: [facility] MANUAL DIFFERENTIAL (missing ) (missing) Result panel 4 ADENOVIRUS - RESP PCR PANEL 2025-08-13: [facility] DETECTED (missing) NO Y NO YES NO NO NO NO Adenovirus detected by the BioFire RP2.1 Panel, a multiplexed nucleic acid test intended for the simultaneous qualitative detection and differentiation of nucleic acids from multiple viral and bacterial respiratory organisms. SARS-CoV-2 -RESP PCR PANEL 2025-08-13 07: [facility] NOT DETECTED (missing) A negative test result for this test indicates that SARS-CoV-2 RNA was not present in the specimen above the limit of detection. Testing performed on the BioFire RP2.1 Panel, a multiplexed nucleic acid repiratory [...] INFLUENZA A- RESP PCR PANEL 2025-08-13 07:02 [facility] NOT DETECTED (missing) Influenza A including subtypes H1, H3, and H1-2009 not detected by the BioFire RP2.1 Panel, a multiplexed nucleic acid test intended for the simultaneous qualitative detection and differentiation of nucleic acids from multiple viral and bacterial respiratory organisms. B. PARAPERTUSSIS- RESP PCR MEDINA 2025-08-13 07:02 [facility] NOT DETECTED (missing) Negative results for this organism do not preclude infection with this organism and may require additional laboratory testing (e.g., bacterial and viral culture, immunofluorescence, and radiography) when evaluating a patient with possible respiratory tract infection. B. PERTUSSIS- RESP PCR PANEL 2025-08-13 07:02 [facility] NOT DETECTED (missing) Negative results for this organism do not preclude infection with this organism and may require additional laboratory testing (e.g., bacterial and viral culture, immunofluorescence, and radiography) when evaluating a patient with possible respiratory tract infection. C. PNEUMONIAE- RESP PCR PANEL 2025-08-13 07:02 [facility] NOT DETECTED (missing) Negative results for this organism do not preclude infection with this organism and may require additional laboratory testing (e.g., bacterial and viral culture, immunofluorescence, and radiography) when evaluating a patient with possible respiratory tract infection. M. PNEUMONIAE- RESP PCR PANEL 2025-08-13 07:02 [facility] NOT DETECTED (missing) Negative results for this organism do not preclude infection with this organism and may require additional laboratory testing (e.g., bacterial and viral culture, immunofluorescence, and radiography) when evaluating a patient with possible respiratory tract infection. CORONAVIRUS 229E-RESP PCR 2025-08-13 07:02 [facility] NOT DETECTED (missing) Negative results in the setting ofa respiratory illness may be due to infection with pathogens not detected by this test, or lower respiratory tract infection that may not be detected by nasopharyngeal specimen. CORONAVIRUS HKU1-RESP PCR 2025-08-13 07:02 [facility] NOT DETECTED (missing) Negative results in the setting ofa respiratory illness may be due to infection with pathogens not detected by this test, or lower respiratory tract infection that may not be detected by nasopharyngeal specimen. CORONAVIRUS [id number] PCR 2025-08-13 07:02 [facility] NOT DETECTED (missing) Negative results in the setting ofa respiratory illness may be due to infection with pathogens not detected by this test, or lower respiratory tract infection that may not be detected by nasopharyngeal specimen. CORONAVIRUS [id number] PCR 2025-08-13 07:02 [facility] NOT DETECTED (missing) Negative results in the setting ofa respiratory illness may be due to infection with pathogens not detected by this test, or lower respiratory tract infection that may not be detected by nasopharyngeal specimen. HUMAN METAPNEUMOVIRUS 2025-08-13 07:02 [facility] NOT DETECTED (missing) Negative results in the setting ofa respiratory illness may be due to infection with pathogens not detected by this test, or lower respiratory tract infection that may not be detected by nasopharyngeal specimen. INFLUENZA B - RESP PCR PANEL 2025-08-13 07:02 [facility] NOT DETECTED (missing) Negative results in the setting ofa respiratory illness may be due to infection with pathogens not detected by this test, or lower respiratory tract infection that may not be detected by nasopharyngeal specimen. PARAINFLUENZA VIRUS 1 2025-08-13 07:02 [facility] NOT DETECTED (missing) Negative results in the setting ofa respiratory illness may be due to infection with pathogens not detected by this test, or lower respiratory tract infection that may not be detected by nasopharyngeal specimen. PARAINFLUENZA VIRUS 2 2025-08-13 07:02 [facility] NOT DETECTED (missing) Negative results in the setting ofa respiratory illness may be due to infection with pathogens not detected by this test, or lower respiratory tract infection that may not be detected by nasopharyngeal specimen. PARAINFLUENZA VIRUS 3 2025-08-13 07:02 [facility] NOT DETECTED (missing) Negative results in the setting ofa respiratory illness may be due to infection with pathogens not detected by this test, or lower respiratory tract infection that may not be detected by nasopharyngeal specimen. PARAINFLUENZA VIRUS 4 2025-08-13 07:02 [facility] NOT DETECTED (missing) Negative results in the setting ofa respiratory illness may be due to infection with pathogens not detected by this test, or lower respiratory tract infection that may not be detected by nasopharyngeal specimen. RHINOVIRUS/ENTEROVI CJ 2025-08-13 07:02 [facility] NOT DETECTED (missing) Negative results in the setting ofa respiratory illness may be due to infection with pathogens not detected by this test, or lower respiratory tract infection that may not be detected by nasopharyngeal specimen. RSV- RESP PCR PANEL 2025-08-13 07:02 [facility] NOT DETECTED (missing) Negative results in the setting ofa respiratory illness may be due to infection with pathogens not detected by this test, or lower respiratory tract infection that may not be detected by nasopharyngeal specimen. Result panel 5 PROCALCITONIN 2025-08-13 07:30 [facility] 20.26 ng/ml Critical result PrCT 20.26 ng/mL called to and read back by Dr. Stan [facility] at 13-Aug-2025 08:24 by annie. PCT Concentration (ng/mL) Children >72hrs old and [...] to 24hours. LACTIC ACID, VENOUS 2025-08-13 07:30 [facility] 3.7 mmol/l N Critical result LA C 3.7 mmol/L called to and read back by Dr. Stan [facility] at 13-Aug-2025 08:16 by annie. As of February 2023 testing method has changed, this may include reference ranges. Result panel 6 LACTIC ACID, VENOUS 2025-08-13 10:44 [facility] 4.2 mmol/l N Critical result LAC 4.2 mmol/L called to and read back by RODNEY Johnston/IZAIAH/ED at 13-Aug-2025 11:11 by gildardo. As of February 2023 testing method has changed, this may include reference ranges. LACTIC ACID, VENOUS 2025-08-13 10:44 [facility] 4.2 mmol/l N Critical result LAC 4.2 mmol/L called to and read back by RODNEY OWENS/ED at 13-Aug-2025 11:11 by gildardo. GROSS HEMOLYSIS MAY AFFECT RESULTS As of February 2023 testing method has changed, this may include reference ranges. Social History date description facility
[2025-08-13] MEDS ORDERED: SODIUM CHLORIDE 0.9% 500 ML IV ONE (12:30)
[2025-08-13] MEDS ORDERED: SODIUM CHLORIDE 0.9% MINIBAG 100 ML IV ONE (12:32)
[2025-08-13] MEDS: PIPERACILLIN/TAZOBACTAM 3.375 GM in SODIUM CHLORIDE 0.9% MINIBAG 100 ML IV SCH (12:38)
[2025-08-13] MEDS: VANCOMYCIN INJ 2 GM in SODIUM CHLORIDE 0.9% 500 ML IV STA (12:38)
[2025-08-13] MEDS: LACTATED RINGERS 1,000 ML IV SCH ×2 (12:39→19:58)
[2025-08-13] MEDS: INSULIN LISPRO 300 UNIT/3 ML PEN SUBQ SCH (13:32)
[2025-08-13] MEDS: SODIUM CHLORIDE FLUSH 0.9% 10 ML SYRINGE IVP SCH ×2 (13:33→17:45)
[2025-08-13] MEDS ORDERED: SODIUM CHLORIDE FLUSH 0.9% 10 ML SYRINGE IVP PRN (13:50)
--- NOTE | 2025-08-13 14:10 | PHARMACY PROGRESS NOTE ---
Best Possible Medication History Admit Date and Time: 08/13/25 [id number] Home Medications Medication Instructions Recorded Confirmed Type albuterol sulfate 90 mcg/actuation 2 puff IH Q6HR PRN shortness of 02/09/24 08/13/25 History breath activated powder inhaler breath or wheezing (ProAir RespiClick) ascorbic acid (vitamin C) 1,000 mg 1,000 mg PO DAILY 0 02/09/24 08/13/25 History tablet docusate sodium 100 mg capsule 100 mg PO UD PRN consti pation 02/09/24 08/13/25 History (Stool Softener) empagliflozin 5 mg-metformin 1,000 1 ea PO BID 4 08/13/25 History mg tablet (Synjardy) furosemide 40 mg tablet 80 mg PO .QOD 02/09/2408/13 History nitroglycerin 0.4 mg sublingual 0.4 mg sublingual Q5MI N PRN 02/09/24 08/13/25 History tablet Moderate Pain (Level 4-6) rosuvastatin 40 mg tablet (Crestor) 40 mg PO DAILY 08/13/25 History semaglutide (weight loss) 0.5 1 mg SQ UD 02/09/2407/24 History mg/0.5 mL subcutaneous pen injector (Wegovy) spironolactone 25 mg tablet 12.5 mg PO DAILY 02/09/24 08/13/25 History (Aldactone) tamsulosin 0.4 mg capsule 0.4 mg PO DAILY PM 02/09/24 08/13/25 History warfarin 2.5 mg tablet 5 mg PO DAILY 04/05/2408/13 History insulin regular hum U-500 conc 500 45 unit subcut BID 01/24/25 08/13/25 History unit/mL(3 mL) subcut pen (Humulin R U-500 (Conc) Insulin Kwikpen) omeprazole 20 mg capsule,delayed 20 mg PO DAILY 08/13/25 History release tiotropium 2.5 mcg-olodaterol 2.5 2 puff inhalation DA GODWIN 01/24/25 08/13/25 History mcg/actuation mist for inhalation (Stiolto Respimat) abiraterone 500 mg tablet 1,000 mg (2 x 500 mg) PO YAN LY #60 02/02/25 08/13/25 Rx tabs prednisone 5 mg tablet 5 mg PO DAILY #90 tabs 07/1208/13/25 Rx folic acid 1 mg tablet 1 mg PO DAILY 08/13/2508/13 History metoprolol succinate 50 mg 50 mg PO BID 08/13/2508/13 History tablet,extended release 24 hr Processed by: Pharmacy Medications reviewed in ED?: Yes Medication History completed: Yes Patient Interview: Completed Secondary Source(s): Insurance records [facility] Statement: As the person ultimately responsible for medication therapy, providers are able to order a medication from an existing home medication list in [facility] via the "Reconcile Routine" prior to Confirmation of that medication by web support engineer. Such practice is discouraged except when the physician, in their clinical judgment, deems that a medical need exists for a medication without regard to previous use.
[2025-08-13 15:20] LABS: GLUCOSE, URINE (UA) >=1000 mg/dL (NEGATIVE); KETONES,URINE (UA) NEGATIVE (NEGATIVE); OCCULT BLOOD,URINE LARGE (NEGATIVE); SQUAMOUS EPITHELIAL CELL,UR FEW Squamous (<= Few)
[2025-08-13] MEDS: ACETAMINOPHEN 325 MG TABLET PO PRN (18:05)
[2025-08-13] MEDS: IPRATROPIUM/ALBUTEROL 3 ML NEB INH SCH (18:21)
[2025-08-13] MEDS: INSULIN GLARGINE-YFGN 300 UNIT/3 ML PEN SUBQ SCH (21:05)
[2025-08-13] MEDS: ATORVASTATIN 40 MG TABLET PO SCH (21:06)
[2025-08-13 21:11] LABS: ESTIMATED AVERAGE GLUCOSE 166 mg/dL (70-100); HEMOGLOBIN A1c% 7.4 % (4.27-6.07)
[2025-08-14] MEDS: VANCOMYCIN INJ 1 GM in SODIUM CHLORIDE 0.9% 250 ML IV SCH (00:15)
[2025-08-14] MEDS: SODIUM CHLORIDE FLUSH 0.9% 10 ML SYRINGE IVP PRN (00:21)
[2025-08-14 04:43] LABS: VBG PH 7.379 (7.31-7.41)
[2025-08-14 04:53] LABS: HCT - HEMATOCRIT 37.2 % (42.0-52.0); HGB - HEMOGLOBIN 11.7 g/dL (14.0-18.0); MEAN PLATELET VOLUME 11.2 fL (7.4-11.4); PLT - PLATELET COUNT 60.0 10^3/uL (130-450); RED CELL DISTRIBUTION WIDTH 19.3 % (12.0-15.0)
[2025-08-14 04:58] LABS: BUN - BLOOD UREA NITROGEN 28.0 mg/dL (6-20); CARBON DIOXIDE - CO2 26.0 mmol/L (21-32); CREATININE 1.0 mg/dL (0.6-1.3); GFR - MDRD 73.0 (>89); PHOSPHORUS 4.1 mg/dL (2.5-5.0)
[2025-08-14] MEDS: MAGNESIUM OXIDE 400 MG TABLET PO ONE ×2 (06:05→17:39)
[2025-08-14] MEDS: PANTOPRAZOLE 40 MG VIAL IVP SCH (06:08)
[2025-08-14] MEDS: ASCORBIC ACID 500 MG TABLET PO SCH (08:49)
[2025-08-14] MEDS: EMPAGLIFLOZIN 10 MG TABLET PO SCH (08:49)
[2025-08-14] MEDS: FOLIC ACID 1 MG TABLET PO SCH (08:49)
[2025-08-14] MEDS: WARFARIN 5 MG TABLET PO SCH (08:49)
[2025-08-14] MEDS ORDERED: FOLIC ACID 1 MG TABLET PO SCH (09:00)
--- NOTE | 2025-08-14 09:29 | PROVIDER PROGRESS NOTE ---
Subjective Subjective Subjective: Patient feels improved today. He denies fevers, chills, shortness of breath. He is feeling better than yesterday, but still feels weak. We discussed that he will likely need 14 days of IV antibiotics. He states he's had home infusions before. Current Medications Current Medications Current Medications: Current Medications Generic Name Dose Route Start Last Admin Trade Name Freq PRN Reason Stop Dose Admin Acetaminophen 650 mg 08/13/25 12:27 08/14/25 08:54 Acetaminophen 325 Mg Tablet PO 650 mg Q4HR PRN Administration Pain 1 to 4, or Fever Albuterol/Ipratropium 3 ml 08/13/25 15:00 08/14/25 08:14 Ipratropium/Albuterol 3 Ml Neb INH Not Given RTQID DOUGLAS Ascorbic Acid 1,000 mg 08/14/25 09:00 08/14/25 08:49 Ascorbic Acid 500 Mg Tablet PO 1,000 mg DAILY DOUGLAS Administration Atorvastatin Calcium 80 mg 08/13/25 21:00 08/13/25 21:06 Atorvastatin 40 Mg Tablet PO 80 mg QPM DOUGLAS Administration Empagliflozin 5 mg 08/14/25 09:00 08/14/25 08:49 Empagliflozin 10 Mg Tablet PO 5 mg BID DOUGLAS Administration Folic Acid 1 mg 08/14/25 09:00 08/14/25 08:49 Folic Acid 1 Mg Tablet PO 1 mg DAILY DOUGLAS Administration Piperacillin Sod/Tazobactam 100 mls @ 200 mls/hr 08/13/25 12:00 08/14/25 06:47 Sod 3.375 gm/ Sodium Chloride IV Infused Q6HR DOUGLAS Infusion Vancomycin HCl 1 gm/ Sodium 250 mls @ 250 mls/hr 08/13/25 23:55 08/14/25 01:26 Chloride IV Infused Q12H DOUGLAS Infusion Insulin Glargine-yfgn 10 unit 08/13/25 21:00 08/13/25 21:05 Insulin Glargine-Yfgn 300 Unit/3 Ml Pen SUBQ 10 unit QPM DOUGLAS Administration Insulin Human Lispro 1 - 5 unit 08/13/25 12:27 08/14/25 08:31 Insulin Lispro 300 Unit/3 Ml Pen SUBQ Not Given 0800,1200,1700,2100 [facility] Protocol Ondansetron HCl 4 mg 08/13/25 12:27 Ondansetron Odt 4 Mg Tablet TL Q6HR PRN Nausea / Vomiting Ondansetron HCl 4 mg 08/13/25 13:50 Ondansetron Odt 4 Mg Tablet TL Q6HR PRN Nausea / Vomiting Ondansetron HCl 4 mg 08/13/25 13:50 Ondansetron 4 Mg/2 Ml Vial IVP Q6HR PRN Nausea / Vomiting Pantoprazole Sodium 40 mg 08/14/25 07:00 08/14/25 06:08 Pantoprazole 40 Mg Vial IVP 40 mg QDAC DOUGLAS Administration Patient Own Med ( 2 each 08/14/25 09:00 08/14/25 08:55 Abiraterone 500 Mg PO Not Given Tablet) DAILY DOUGLAS Prednisone 5 mg 08/14/25 09:00 08/14/25 08:49 Prednisone 5 Mg Tablet PO 5 mg DAILY DOUGLAS Administration Sodium Chloride 10 ml 08/13/25 12:27 08/14/25 04:30 Sodium Chloride Flush 0.9% 10 Ml Syringe IVP 10 ml PRN PRN Administration NEEDED PER PROVIDER ORDERS Sodium Chloride 10 ml 08/13/25 12:27 08/14/25 08:57 Sodium Chloride Flush 0.9% 10 Ml Syringe IVP 10 ml 0100,0900,1700 DOUGLAS Administration Sodium Chloride 10 ml 08/13/25 17:00 08/14/25 08:57 Sodium Chloride Flush 0.9% 10 Ml Syringe IVP 10 ml 0100,0900,1700 DOUGLAS Administration Sodium Chloride 10 ml 08/13/25 13:50 Sodium Chloride Flush 0.9% 10 Ml Syringe IVP PRN PRN NEEDED PER PROVIDER ORDERS Warfarin Sodium 5 mg 08/14/25 09:00 08/14/25 08:49 Warfarin 5 Mg Tablet PO 5 mg DAILY DOUGLAS Administration Objective Vital Signs/Intake & Output Reviewed Vital Signs: Yes Vital Signs: Vital Signs x48h Temp Pulse Resp BP Pulse Ox 08/14/25 09:00 70 26 H 102/51 L 97 08/14/25 08:00 98.0 F 70 14 106/55 L 92 08/14/25 07:00 70 18 109/55 L 94 08/14/25 06:00 98.1 F 70 18 112/58 L 96 08/14/25 05:00 70 16 109/57 L 95 08/14/25 04:00 97.7 F 70 18 120/80 93 08/14/25 03:00 70 17 127/63 94 08/14/25 02:00 70 17 121/59 L 92 Intake & Output: Intake & Output 08/11/25 08/12/25 08/13/25 08/14/25 23:59 23:59 23:59 23:59 Intake Total 5312 / 5312 1990 Output Total 2532 / 2532 1035 / 1035 Balance 2780 / 2780 956 / 956 Weight (kg) 83 kg 80 kg Objective Comments/Other: Frail-appearing man, appears stated age. Answering appropriately. Constitutional abnormal general appearance (chronically ill) and (frail appearing), distress noted (mild) and (respiratory) and abnormal body habitus (thin) HENMT normocephalic, head/scalp atraumatic and hearing grossly normal bilaterally Eyes PERRL, EOMs intact bilaterally and conjunctivae normal Chest inspection of chest normal and palpation of chest normal Respiratory breath sounds equal bilaterally and normal respiratory effort Mild rhonchi noted in bibasilar regions. Cardiovascular normal heart rate noted, regular rhythm noted, no gallop, no rub and no murmur Gastrointestinal abdomen normal to inspection, abdomen soft to palpation, nontender to palpation and nontender to percussion Extremities normal to inspection, normal to palpation, no tenderness and full ROM Neurology no movement abnormality noted and no focal motor deficit noted Psychiatry mental status grossly normal, oriented x3, thought process normal, cooperative and affect normal Skin skin color normal, no rash and no lesions Lab Results 08/14/25 04:29 08/14/25 04:29 Other Labs: Lab Results x24hrs 08/14/25 08/14/25 08/13/25 Range/Units 07:54 04:29 16:58 WBC 18.0 H (4.8-10.8) x10^3/uL RBC 4.36 L (4.70-6.10) 10^6/uL Hgb 11.7 L (14.0-18.0) g/dL Hct 37.2 L (42.0-52.0) % MCV 85.3 (80.0-94.0) fL MCH 26.8 L (27.0-31.0) pg MCHC 31.5 L (32.0-36.0) g/dL RDW 19.3 H (12.0-15.0) % Plt Count 60 L (130-450) 10^3/uL MPV 11.2 (7.4-11.4) fL VBG pH 7.379 (7.31-7.41) Ionized Calcium 1.20 (1.09-1.30) mmol/L Sodium 142 (135-145) mmol/L Potassium 4.2 (3.5-4.5) mmol/L Chloride 112 H (101-111) mmol/L Carbon Dioxide 26 (21-32) mmol/L Anion Gap 4.0 L (6-13) BUN 28 H (6-20) mg/dL Creatinine 1.0 (0.6-1.3) mg/dL Estimated GFR (MDRD) 73 L (>89) Glucose 141 H (74-104) mg/dL POC Whole Bld Glucose 125 185 (70-100) mg/dL Estimat Average Glucose (70-100) mg/dL Hemoglobin A1c % (4.27-6.07) % Lactic Acid 0.9 (0.5-2.2) mmol/L Calcium 9.0 (8.5-10.3) mg/dL Phosphorus 4.1 (2.5-5.0) mg/dL Magnesium 1.8 (1.7-2.3) mg/dL Urine Color Urine Clarity (CLEAR) Urine pH (5.0-7.5) PH Ur Specific [place] (1.002-1.030) Urine Protein (NEGATIVE) mg/dL Urine Glucose (UA) (NEGATIVE) mg/dL Urine Ketones (NEGATIVE) mg/dL Urine Occult Blood (NEGATIVE) Urine Nitrite (NEGATIVE) Urine Bilirubin (NEGATIVE) Urine Urobilinogen (NORMAL) E.U./dL Ur Leukocyte Esterase (NEGATIVE) Urine RBC (0-5) /HPF Urine WBC (0-3) /HPF Ur Squamous Epith Cells (<= Few) Urine Bacteria (None Seen) /HPF Ur Microscopic Review Urine Culture Comments Nasal Screen MRSA (PCR) (NEGATIVE) 08/13/25 08/13/25 08/13/25 Range/Units 15:33 14:45 12:45 WBC (4.8-10.8) x10^3/uL RBC (4.70-6.10) 10^6/uL Hgb (14.0-18.0) g/dL Hct (42.0-52.0) % MCV (80.0-94.0) fL MCH (27.0-31.0) pg MCHC (32.0-36.0) g/dL RDW (12.0-15.0) % Plt Count (130-450) 10^3/uL MPV (7.4-11.4) fL VBG pH (7.31-7.41) Ionized Calcium (1.09-1.30) mmol/L Sodium (135-145) mmol/L Potassium (3.5-4.5) mmol/L Chloride (101-111) mmol/L Carbon Dioxide (21-32) mmol/L Anion Gap (6-13) BUN (6-20) mg/dL Creatinine (0.6-1.3) mg/dL Estimated GFR (MDRD) (>89) Glucose (74-104) mg/dL POC Whole Bld Glucose 135 (70-100) mg/dL Estimat Average Glucose (70-100) mg/dL Hemoglobin A1c % (4.27-6.07) % Lactic Acid 2.3 H (0.5-2.2) mmol/L Calcium (8.5-10.3) mg/dL Phosphorus (2.5-5.0) mg/dL Magnesium (1.7-2.3) mg/dL Urine Color YELLOW Urine Clarity CLEAR (CLEAR) Urine pH 7.0 (5.0-7.5) PH Ur Specific [place] 1.015 (1.002-1.030) Urine Protein 100 H (NEGATIVE) mg/dL Urine Glucose (UA) >=1000 H (NEGATIVE) mg/dL Urine Ketones NEGATIVE (NEGATIVE) mg/dL Urine Occult Blood LARGE (NEGATIVE) Urine Nitrite NEGATIVE (NEGATIVE) Urine Bilirubin NEGATIVE (NEGATIVE) Urine Urobilinogen 0.2 (NORMAL) (NORMAL) E.U./dL Ur Leukocyte Esterase NEGATIVE (NEGATIVE) Urine RBC 6-10 H (0-5) /HPF Urine WBC 0-3 (0-3) /HPF Ur Squamous Epith Cells FEW Squamous (<= Few) Urine Bacteria Rare (None Seen) /HPF Ur Microscopic Review INDICATED Urine Culture Comments NOT INDICATED Nasal Screen MRSA (PCR) (NEGATIVE) 12/22/25 12/22/25 12/22/25 Range/Units 12:35 10:44 06:55 WBC (4.8-10.8) x10^3/uL RBC (4.70-6.10) 10^6/uL Hgb (14.0-18.0) g/dL Hct (42.0-52.0) % MCV (80.0-94.0) fL MCH (27.0-31.0) pg MCHC (32.0-36.0) g/dL RDW (12.0-15.0) % Plt Count (130-450) 10^3/uL MPV (7.4-11.4) fL VBG pH (7.31-7.41) Ionized Calcium (1.09-1.30) mmol/L Sodium (135-145) mmol/L Potassium (3.5-4.5) mmol/L Chloride (101-111) mmol/L Carbon Dioxide (21-32) mmol/L Anion Gap (6-13) BUN (6-20) mg/dL Creatinine (0.6-1.3) mg/dL Estimated GFR (MDRD) (>89) Glucose (74-104) mg/dL POC Whole Bld Glucose (70-100) mg/dL Estimat Average Glucose 166 H (70-100) mg/dL Hemoglobin A1c % 7.4 H (4.27-6.07) % Lactic Acid 4.2 H* (0.5-2.2) mmol/L Calcium (8.5-10.3) mg/dL Phosphorus (2.5-5.0) mg/dL Magnesium (1.7-2.3) mg/dL Urine Color Urine Clarity (CLEAR) Urine pH (5.0-7.5) PH Ur Specific [place] (1.002-1.030) Urine Protein (NEGATIVE) mg/dL Urine Glucose (UA) (NEGATIVE) mg/dL Urine Ketones (NEGATIVE) mg/dL Urine Occult Blood (NEGATIVE) Urine Nitrite (NEGATIVE) Urine Bilirubin (NEGATIVE) Urine Urobilinogen (NORMAL) E.U./dL Ur Leukocyte Esterase (NEGATIVE) Urine RBC (0-5) /HPF Urine WBC (0-3) /HPF Ur Squamous Epith Cells (<= Few) Urine Bacteria (None Seen) /HPF Ur Microscopic Review Urine Culture Comments Nasal Screen MRSA (PCR) NEGATIVE (NEGATIVE) Assessment/Plan Problem List (1) Bacteremia due to Enterococcus: (2) Septic shock: Qualifiers: Sepsis type: sepsis due to unspecified organism Qualified Code(s): A 41.9 - Sepsis, unspecified organism; R65.21 - Severe sepsis with septic shock (3) Pneumonia: Impression: The following plan is for the above two assessments: Patient presented after being found down. Unclear if he syncopized, as he was responsive but altered when found. Hypotensive with a leukocytosis, elevated procalcitonin level, elevated lactic acid. Chest x-ray with patchy infiltrates noted. Respiratory viral panel positive for adenovirus. He notes chills, postnasal drip, sinus congestion, and weakness over the last 2 weeks. Blood cultures now positive for Enterococcus faecalis. Continue broad treatment with Zosyn and vancomycin; susceptibilities pending. Will order repeat blood cultures in 48 hours. Despite 3 L of IV fluid resuscitation, patient remained hypotensive. Central line placed, Levsophed was started. Weaned off this A.M. Patient would like full medical care, including intubation and CPR. Qualifiers: Laterality: left Lung location: unspecified part of lung Pneumonia type: due to unspecified organism Qualified Code(s): J18.9 - Pneumonia, unspecified organism (4) Syncope and collapse: Impression: Unclear if patient syncopized. Found down by son, confused and altered. Continue cardiac telemetry. CT head, CT cervical spine without any acute abnormalities noted. ECHO ordered. (5) Lactic acidosis: Impression: Hypoperfusion in setting of septic shock, resolved. (6) Iron deficiency anemia: Impression: Hemoglobin 14.2 on admission, likely hemoconcentrated in setting of dehydration. Now back at baseline around 11-12. Qualifiers: Iron deficiency anemia type: unspecified iron deficiency Qualified Code(s): D50.9 - Iron deficiency anemia, unspecified (7) Thrombocytopenia: Impression: Chronically low. Stable. No active bleeding noted. (8) Diabetes mellitus: Impression: A1c of 7.4%. Continue low-dose sliding scale at this time, 10 units Lantus, and uptitrate as necessary. Qualifiers: Diabetes mellitus complication status: with other specified complication Diabetes mellitus ocean transportation intermediary insulin use: unspecified ocean transportation intermediary insulin use status Diabetes mellitus type: type 2 Qualified Code(s): E11.69 - Type 2 diabetes mellitus with other specified complication (9) Pacemaker: Impression: Telemetry reviewed, patient currently in paced rhythm. (10) Afib: Impression: Currently in paced rhythm. Continue Coumadin as per home medication. Qualifiers: Atrial fibrillation type: unspecified Qualified Code(s): I48.91 - Unspecified atrial fibrillation (11) HTN (hypertension): Impression: Resume metoprolol for atrial fibrillation. Qualifiers: Hypertension type: unspecified Qualified Code(s): I10 - Essential (primary) hypertension (12) Recurrent prostate cancer: Impression: Patient on hormonal therapycontinue Synjardy, abiraterone.
--- NOTE | 2025-08-14 10:59 | XRAY Report ---
PROCEDURE: XR Chest 1V INDICATIONS: SHAYNA TECHNIQUE: One view of the chest was acquired. COMPARISON: 08/13/2025 FINDINGS: Surgical changes and devices: Left chest wall generator with cardiac leads. Right IJ central venous catheter tip projects over the low SVC. Prosthetic aortic valve. Lungs and pleura: Dense retrocardiac opacity. Blunting of the left costophrenic angle. Mediastinum: Mediastinal contours appear normal. Heart size is mildly enlarged. Bones and chest wall: No suspicious bony lesions. Overlying soft tissues appear unremarkable. IMPRESSION: Dense retrocardiac opacity, representing atelectasis or infection. Small left pleural effusion. Reviewed by: Alex Oretga MD on 08/14/2025 10:56 AM [facility] Approved by: Alex Ortega MD on 08/14/2025 10:56 AM [facility] Station ID: [id number]
[2025-08-14] MEDS: PIPERACILLIN/TAZOBACTAM 3.375 GM in SODIUM CHLORIDE 0.9% MINIBAG 100 ML IV SCH (12:00)
[2025-08-14] MEDS: FUROSEMIDE 40 MG TABLET PO SCH (19:40)
[2025-08-14] MEDS: TAMSULOSIN 0.4 MG CAPSULE PO SCH (21:03)
[2025-08-14] MEDS: METOPROLOL SUCCINATE 25 MG TABLET PO SCH (21:03)
[2025-08-15 04:28] LABS: HCT - HEMATOCRIT 31.3 % (42.0-52.0); HGB - HEMOGLOBIN 9.8 g/dL (14.0-18.0); MEAN PLATELET VOLUME 9.7 fL (7.4-11.4); PLT - PLATELET COUNT 43.0 10^3/uL (130-450); RED CELL DISTRIBUTION WIDTH 19.6 % (12.0-15.0)
[2025-08-15 04:36] LABS: VBG PH 7.429 (7.31-7.41)
[2025-08-15 04:37] LABS: INR 2.4 (0.8-1.2); PT - PROTHROMBIN TIME 25.8 secs (9.9-12.6)
[2025-08-15 04:42] LABS: BUN - BLOOD UREA NITROGEN 25.0 mg/dL (6-20); CARBON DIOXIDE - CO2 26.0 mmol/L (21-32); CREATININE 0.9 mg/dL (0.6-1.3); GFR - MDRD 82.0 (>89); PHOSPHORUS 2.9 mg/dL (2.5-5.0)
[2025-08-15] MEDS: MAGNESIUM OXIDE 400 MG TABLET PO ONE (06:57)
[2025-08-15] MEDS: EMPAGLIFLOZIN 10 MG TABLET PO SCH (08:21)
[2025-08-15] MEDS: POTASSIUM CHLORIDE 20 MEQ TABLET PO SCH (08:21)
--- NOTE | 2025-08-15 09:34 | PROVIDER PROGRESS NOTE ---
Subjective Subjective Subjective: Patient feels improved today. He denies fevers, chills, shortness of breath. We discussed that he will likely need 14 days of IV antibiotics. He states he's had home infusions before. 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 Current Medications Current Medications Current Medications: Current Medications Generic Name Dose Route Start Last Admin Trade Name Freq PRN Reason Stop Dose Admin Acetaminophen 650 mg 08/13/25 12:27 08/15/25 05:56 Acetaminophen 325 Mg Tablet PO 650 mg Q4HR PRN Administration Pain 1 to 4, or Fever Albuterol/Ipratropium 3 ml 08/13/25 15:00 08/15/25 07:09 Ipratropium/Albuterol 3 Ml Neb INH 3 ml RTQID DOUGLAS Administration Ascorbic Acid 1,000 mg 08/14/25 09:00 08/15/25 08:21 Ascorbic Acid 500 Mg Tablet PO 1,000 mg DAILY DOUGLAS Administration Atorvastatin Calcium 80 mg 08/13/25 21:00 08/14/25 21:03 Atorvastatin 40 Mg Tablet PO 80 mg QPM DOUGLAS Administration Empagliflozin 10 mg 08/15/25 09:00 08/15/25 08:21 Empagliflozin 10 Mg Tablet PO 10 mg DAILY DOUGLAS Administration Folic Acid 1 mg 08/14/25 09:00 08/15/25 08:21 Folic Acid 1 Mg Tablet PO 1 mg DAILY DOUGLAS Administration Furosemide 80 mg 08/14/25 19:00 08/14/25 19:40 Furosemide 40 Mg Tablet PO 80 mg QOD DOUGLAS Administration Vancomycin HCl 1 gm/ Sodium 250 mls @ 250 mls/hr 08/13/25 23:55 08/15/25 02:15 Chloride IV Infused Q12H DOUGLAS Infusion Insulin Glargine-yfgn 10 unit 08/13/25 21:00 08/14/25 21:02 Insulin Glargine-Yfgn 300 Unit/3 Ml Pen SUBQ 10 unit QPM DOUGLAS Administration Insulin Human Lispro 1 - 5 unit 08/13/25 12:27 08/15/25 08:08 Insulin Lispro 300 Unit/3 Ml Pen SUBQ Not Given 0800,1200,1700,2100 [facility] Protocol Metoprolol Succinate 25 mg 08/14/25 21:00 08/15/25 08:21 Metoprolol Succinate 25 Mg Tablet PO 25 mg BID DOUGLAS Administration Ondansetron HCl 4 mg 08/13/25 12:27 Ondansetron Odt 4 Mg Tablet TL Q6HR PRN Nausea / Vomiting Ondansetron HCl 4 mg 08/13/25 13:50 Ondansetron Odt 4 Mg Tablet TL Q6HR PRN Nausea / Vomiting Ondansetron HCl 4 mg 08/13/25 13:50 Ondansetron 4 Mg/2 Ml Vial IVP Q6HR PRN Nausea / Vomiting Pantoprazole Sodium 40 mg 08/14/25 07:00 08/15/25 06:57 Pantoprazole 40 Mg Vial IVP 40 mg QDAC DOUGLAS Administration Abiraterone 500 Mg 2 each 08/14/25 09:00 08/15/25 08:23 Tablet PO 2 each DAILY DOUGLAS Administration Potassium Chloride 20 meq 08/15/25 08:00 08/15/25 08:21 Potassium Chloride 20 Meq Tablet PO 08/15/25 10:01 20 meq Q2H DOUGLAS Administration Protocol Prednisone 5 mg 08/14/25 09:00 08/15/25 08:22 Prednisone 5 Mg Tablet PO 5 mg DAILY DOUGLAS Administration Sodium Chloride 10 ml 08/13/25 12:27 08/14/25 21:03 Sodium Chloride Flush 0.9% 10 Ml Syringe IVP 10 ml PRN PRN Administration NEEDED PER PROVIDER ORDERS Sodium Chloride 10 ml 08/13/25 12:27 08/15/25 08:22 Sodium Chloride Flush 0.9% 10 Ml Syringe IVP 10 ml 0100,0900,1700 DOUGLAS Administration Sodium Chloride 10 ml 08/13/25 17:00 08/15/25 08:22 Sodium Chloride Flush 0.9% 10 Ml Syringe IVP 10 ml 0100,0900,1700 DOUGLAS Administration Sodium Chloride 10 ml 08/13/25 13:50 Sodium Chloride Flush 0.9% 10 Ml Syringe IVP PRN PRN NEEDED PER PROVIDER ORDERS Tamsulosin HCl 0.4 mg 08/14/25 21:00 08/14/25 21:03 Tamsulosin 0.4 Mg Capsule PO 0.4 mg HS DOUGLAS Administration Warfarin Sodium 5 mg 08/14/25 09:00 08/15/25 08:22 Warfarin 5 Mg Tablet PO 5 mg DAILY DOUGLAS Administration Objective Vital Signs/Intake & Output Reviewed Vital Signs: Yes Vital Signs: Vital Signs x48h Temp Pulse Pulse Resp BP Pulse Ox 08/15/25 09:00 78 21 112/59 L 94 08/15/25 08:00 98.3 F 73 26 H 128/69 95 08/15/25 07:10 70 18 08/15/25 07:00 70 21 122/74 93 08/15/25 06:00 70 30 H 120/64 93 08/15/25 05:00 71 17 132/68 H 95 08/15/25 04:00 102 H 22 114/65 98 08/15/25 03:00 70 19 127/65 95 08/15/25 02:00 70 15 125/65 94 Intake & Output: Intake & Output 08/12/25 08/13/25 08/14/25 08/15/25 23:59 23:59 23:59 23:59 Intake Total 5312 / 5312 3357 / 3357 1190 / 1190 Output Total 2532 / 2532 2445 / 2445 2185 / 2185 Balance 2780 / 2780 912 / 912 -995 / -995 Weight (kg) 83 kg 80 kg 80 kg Objective Comments/Other: Frail-appearing man, appears stated age. Answering appropriately. Constitutional normal general appearance and (frail appearing), no distress noted and abnormal body habitus (thin) HENMT normocephalic, head/scalp atraumatic and hearing grossly normal bilaterally Eyes PERRL, EOMs intact bilaterally and conjunctivae normal Chest inspection of chest normal and palpation of chest normal Respiratory breath sounds equal bilaterally and normal respiratory effort Mild rhonchi noted in bibasilar regions. Cardiovascular normal heart rate noted, regular rhythm noted, no gallop, no rub and no murmur - paced rhythm Gastrointestinal abdomen normal to inspection, abdomen soft to palpation, nontender to palpation and nontender to percussion Extremities normal to inspection, normal to palpation, no tenderness and full ROM Neurology no movement abnormality noted and no focal motor deficit noted Psychiatry mental status grossly normal, oriented x3, thought process normal, cooperative and affect normal Skin skin color normal, no rash and no lesions Lab Results 08/15/25 04:22 08/15/25 04:22 Other Labs: Lab Results x24hrs 08/15/25 08/15/25 08/14/25 Range/Units 08:07 04:22 20:42 WBC 9.4 (4.8-10.8) x10^3/uL RBC 3.68 L (4.70-6.10) 10^6/uL Hgb 9.8 L (14.0-18.0) g/dL Hct 31.3 L (42.0-52.0) % MCV 85.1 (80.0-94.0) fL MCH 26.6 L (27.0-31.0) pg MCHC 31.3 L (32.0-36.0) g/dL RDW 19.6 H (12.0-15.0) % Plt Count 43 L (130-450) 10^3/uL MPV 9.7 (7.4-11.4) fL PT 25.8 H (9.9-12.6) secs INR 2.4 H (0.8-1.2) VBG pH 7.429 H (7.31-7.41) Ionized Calcium 1.21 (1.09-1.30) mmol/L Sodium 142 (135-145) mmol/L Potassium 3.5 (3.5-4.5) mmol/L Chloride 110 (101-111) mmol/L Carbon Dioxide 26 (21-32) mmol/L Anion Gap 6.0 (6-13) BUN 25 H (6-20) mg/dL Creatinine 0.9 (0.6-1.3) mg/dL Estimated GFR (MDRD) 82 L (>89) Glucose 121 H (74-104) mg/dL POC Whole Bld Glucose 122 175 (70-100) mg/dL Calcium 9.0 (8.5-10.3) mg/dL Phosphorus 2.9 (2.5-5.0) mg/dL Magnesium 1.7 (1.7-2.3) mg/dL 08/14/25 08/14/25 08/14/25 Range/Units 16:42 12:20 11:45 WBC (4.8-10.8) x10^3/uL RBC (4.70-6.10) 10^6/uL Hgb (14.0-18.0) g/dL Hct (42.0-52.0) % MCV (80.0-94.0) fL MCH (27.0-31.0) pg MCHC (32.0-36.0) g/dL RDW (12.0-15.0) % Plt Count (130-450) 10^3/uL MPV (7.4-11.4) fL PT (9.9-12.6) secs INR (0.8-1.2) VBG pH (7.31-7.41) Ionized Calcium (1.09-1.30) mmol/L Sodium (135-145) mmol/L Potassium (3.5-4.5) mmol/L Chloride (101-111) mmol/L Carbon Dioxide (21-32) mmol/L Anion Gap (6-13) BUN (6-20) mg/dL Creatinine (0.6-1.3) mg/dL Estimated GFR (MDRD) (>89) Glucose (74-104) mg/dL POC Whole Bld Glucose 171 151 (70-100) mg/dL Calcium (8.5-10.3) mg/dL Phosphorus (2.5-5.0) mg/dL Magnesium 1.8 (1.7-2.3) mg/dL 08/13/25 Range/Units 20:54 WBC (4.8-10.8) x10^3/uL RBC (4.70-6.10) 10^6/uL Hgb (14.0-18.0) g/dL Hct (42.0-52.0) % MCV (80.0-94.0) fL MCH (27.0-31.0) pg MCHC (32.0-36.0) g/dL RDW (12.0-15.0) % Plt Count (130-450) 10^3/uL MPV (7.4-11.4) fL PT (9.9-12.6) secs INR (0.8-1.2) VBG pH (7.31-7.41) Ionized Calcium (1.09-1.30) mmol/L Sodium (135-145) mmol/L Potassium (3.5-4.5) mmol/L Chloride (101-111) mmol/L Carbon Dioxide (21-32) mmol/L Anion Gap (6-13) BUN (6-20) mg/dL Creatinine (0.6-1.3) mg/dL Estimated GFR (MDRD) (>89) Glucose (74-104) mg/dL POC Whole Bld Glucose 196 (70-100) mg/dL Calcium (8.5-10.3) mg/dL Phosphorus (2.5-5.0) mg/dL Magnesium (1.7-2.3) mg/dL Assessment/Plan Problem List (1) Bacteremia due to Enterococcus: (2) Septic shock: Qualifiers: Sepsis type: sepsis due to unspecified organism Qualified Code(s): A 41.9 - Sepsis, unspecified organism; R65.21 - Severe sepsis with septic shock (3) Pneumonia: Impression: The following plan is for the above two assessments: Patient presented after being found down. Unclear if he syncopized, as he was responsive but altered when found. Hypotensive with a leukocytosis, elevated procalcitonin level, elevated lactic acid. Chest x-ray with patchy infiltrates noted. Respiratory viral panel positive for adenovirus. He notes chills, postnasal drip, sinus congestion, and weakness over the last 2 weeks. Blood cultures now positive for Enterococcus faecalis. Unclear source for this - UA negative. Enterococcus pneumonia is rare, but a possibility. Patient advised to complete colonoscopy screening on discharge for possible GI translocation source. If repeat blood cultures are positive, he may need ROSA, evaluation of TAVR in place, etc. Initially received broad treatment with Zosyn and vancomycin; susceptibilities confirmed today, switched to ampicillin. Repeat blood cultures ordered 08/15, 48 hours from the first. Patient would prefer home infusions. However, he is significantly debilitated, and PT eval has been ordered for possible SNF placement. Continue discharge planning with social work. Despite 3 L of IV fluid resuscitation, patient remained hypotensive. Central line placed, Levophed was started. Weaned off 08/14. Qualifiers: Laterality: left Lung location: unspecified part of lung Pneumonia type: due to unspecified organism Qualified Code(s): J18.9 - Pneumonia, unspecified organism (4) Syncope and collapse: Impression: Unclear if patient syncopized. Found down by son, confused and altered. Continue cardiac telemetry - remains in paced rhythm. CT head, CT cervical spine without any acute abnormalities noted. ECHO ordered. (5) Lactic acidosis: Impression: Resolved. Hypoperfusion in setting of septic shock. (6) Iron deficiency anemia: Impression: Hemoglobin 14.2 on admission, likely hemoconcentrated in setting of dehydration. Now back at baseline around 11-12. Qualifiers: Iron deficiency anemia type: unspecified iron deficiency Qualified Code(s): D50.9 - Iron deficiency anemia, unspecified (7) Thrombocytopenia: Impression: Stable. No active bleeding noted. (8) Diabetes mellitus: Impression: A1c of 7.4%. Continue low-dose sliding scale at this time, 10 units Lantus, and uptitrate as necessary. At home, he was taking up to 45 units of U-500 insulin (divided in two doses.) Dialysis Clinical Manager consulted. 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 (10) Afib: Impression: Currently in paced rhythm. Continue Coumadin as per home medication. Qualifiers: Atrial fibrillation type: unspecified Qualified Code(s): I48.91 - Unspecified atrial fibrillation (11) HTN (hypertension): Impression: Resume metoprolol. Qualifiers: Hypertension type: unspecified Qualified Code(s): I10 - Essential (primary) hypertension (12) Recurrent prostate cancer: Impression: Patient on hormonal therapycontinue Synjardy, abiraterone, prednisone.
[2025-08-15] MEDS: AMPICILLIN 2 GM in SODIUM CHLORIDE 0.9% MINIBAG 100 ML IV SCH (12:30)
--- NOTE | 2025-08-15 15:36 | PT Plan of Care ---
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 Admitted with sepsis d/t bacteremia, pna and adenovirus. Droplet precautions, cleared for eval by hospitalist. Upon PT eval, pt agreeable to participate. During mobility assessment, pt requires CGA overall for transfers and ambulation. Pt is requiring FWW use for all transfers and in room mobility. Amb distance approx. 30 with good path navigation and fair+ to good balance. Able to self- navigate and self-sequence without skilled cueing. Pt does require modA for lower body dressing but otherwise able to complete seated ADLs during PT eval. Pt presenting below baseline but states he feels confident he can mobilize in his home with FWW and some assistance from his son. Pt may benefit from continued PT in acute setting to progress gait training and balance. When medically clear, PT rec dc home with HHPT for continued balance and gait progression. Goals Improve bed mobility to: Modified Independent Improve supine to sit to: Modified Independent Improve sit to stand to: Modified Independent Improve pivot transfer ability Modified Independent to: Improve sit to supine to: Modified Independent Improve gait ability to: SBA Assistive Device Used: Front Wheeled Walker Improve Standing Balance to: Good PT Plan of Care Duration 3-5x/wk during acute stay Discharge Recommendations Discharge Location Previous Living Situation Support/Services Needed Home Health P.T. DC Equipment Recommended Front wheeled walker Transport Needs at Discharge Personal vehicle
[2025-08-15] MEDS ORDERED: SODIUM CHLORIDE 0.9% MINIBAG 100 ML IV ONE ×3 (17:22→23:52)
[2025-08-16 07:38] LABS: HCT - HEMATOCRIT 34.7 % (42.0-52.0); HGB - HEMOGLOBIN 10.9 g/dL (14.0-18.0); MEAN PLATELET VOLUME 11.7 fL (7.4-11.4); PLT - PLATELET COUNT 65.0 10^3/uL (130-450); RED CELL DISTRIBUTION WIDTH 19.0 % (12.0-15.0)
[2025-08-16 07:49] LABS: BUN - BLOOD UREA NITROGEN 20.0 mg/dL (6-20); CARBON DIOXIDE - CO2 29.0 mmol/L (21-32); CREATININE 0.7 mg/dL (0.6-1.3); GFR - MDRD 110.0 (>89)
[2025-08-16] MEDS: FUROSEMIDE 40 MG TABLET PO SCH (08:44)
--- NOTE | 2025-08-16 08:48 | Discharge Summary ---
"Discharge Summary Admit Date: 08/13/25 Discharge Date: 08/16/25 Discharging Provider: Dr. Jorje Ramirez Primary Care Provider: Uriel Crystal Code Status: Attempt Resuscitation Discharge Facility Name: [facility] DIAGNOSES Discharge Diagnoses with Status of Each Condition: Bacteremia due to Enterococcus, septic shock: Patient presented after being found down. Unclear if he syncopized, as he was responsive but altered when found. Initially hypotensive with a leukocytosis, elevated procalcitonin level, elevated lactic acid. Resolved now. Chest x-ray with patchy infiltrates noted. Respiratory viral panel positive for adenovirus. He notes chills, postnasal drip, sinus congestion, and weakness over the last 2 weeks. Blood cultures positive for Enterococcus faecalis. Unclear source for this - UA negative. Enterococcus pneumonia is rare, but a possibility. Patient advised to complete colonoscopy screening on discharge for possible GI translocation source. Repeat blood cultures at 48 hours positive. Concern for aortic valve, pacemaker infection - he may need ROSA, evaluation of TAVR in place, etc. [facility] transfer center spoken with. Hospitalist agreeable to transfer for further specialty care (cardiology, infectious disease) for persistent bacteremia. Initially received broad treatment with Zosyn and vancomycin; susceptibilities confirmed today, switched to ampicillin. Syncope and collapse Unclear if patient syncopized. Found down by son, confused and altered. Continue cardiac telemetry - remains in paced rhythm. CT head, CT cervical spine without any acute abnormalities noted. ECHO ordered. Lactic acidosis Resolved. Hypoperfusion in setting of septic shock. Iron deficiency anemia: Hemoglobin 14.2 on admission, likely hemoconcentrated in setting of dehydration. Now back at baseline around 11-12. Thrombocytopenia Impression: Stable. No active bleeding noted. Diabetes mellitus A1c of 7.4%. Continue low-dose sliding scale at this time, 10 units Lantus, and uptitrate as necessary. At home, he was taking up to 45 units of U-500 insulin (divided in two doses.) Biomedical Equipment Specialist consulted. Pacemaker Telemetry reviewed, patient currently in paced rhythm. Afib Currently in paced rhythm. Continue Coumadin as per home medication. HTN (hypertension): Resume metoprolol. Recurrent prostate cancer Patient on hormonal therapycontinue abiraterone, prednisone. HPI History of Present Illness: Per Sampson Joaquin: This is a 74 yo male with pmhx of htn, hld, cad, T2dm, afib on coumadin who presented with sob and fatigue and weakness. Pt states started antifungal about 2 weeks ago and had INR checked and was told to hold his coumadin for a day and then pt states began taking coumadin again per instructions. Pt noted INR was 5.1 and was told to hold for 2 doses and states day of presentation INR was unreadable and therefore pt presented to ER given this and symptoms. Pt denies any melena, brbr, no chest pain, no hematemesis. No hematochezia, no fevers or chills. CONSULTS | PROCEDURES Procedures: Chest x-ray08/14dense, retrocardiac opacity. Cervical spine CT08/13no acute displaced fracture or traumatic subluxation. Head CT08/13no acute intracranial pathology. 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 He experienced a potential syncopal episode. He endorsed fevers, chills, sinus congestion prior to admission. He was found to be in septic shock. He required Levophed, and ICU level care initially. He was started on broad-spectrum IV antibiotics. His blood cultures came back positive for Enterococcus faecalis. UA was negative, chest x-ray with retrocardiac opacity although Enterococcus pneumonia is rare. Repeat blood cultures were done after 48 hours of IV antibiotic therapy, and were still positive for gram- positive cocci. TTE was completed here, but patient will likely require ROSA to assess for vegetations. Clinically, he is now vitally stable, not requiring vasopressors, with a normal leukocytosis. However, with prosthetic valve and pacemaker in place, he is at high risk for seeding, and vegetations. I spoke with Dg, hospitalist Dr. Marilu Hardy, who accepted the admission. Patient was transferred in stable condition.Patient is a 74-year-old gentleman with a history of aortic stenosis s/p TAVR, heart block with pacemaker in place who initially presented after being found down by his son. He experienced a potential syncopal episode. He endorsed fevers, chills, sinus congestion prior to admission. He was found to be in septic shock. He required Levophed, and ICU level care initially. He was started on broad-spectrum IV antibiotics. His blood cultures came back positive for Enterococcus faecalis. UA was negative, chest x-ray with retrocardiac opacity although Enterococcus pneumonia is rare. Repeat blood cultures were done after 48 hours of IV antibiotic therapy, and were still positive for gram-positive cocci. TTE was completed here, but patient will likely require ROSA to assess for vegetations. Clinically, he is now vitally stable, not requiring vasopressors, with a normal leukocytosis. However, with prosthetic valve and pacemaker in place, he is at high risk for seeding, and vegetations. I spoke with Dg, hospitalist Dr. Marilu Hardy, who accepted the admission. Patient was transferred in stable condition. ALLERGIES Allergies Allergy/AdvReac Type Severity Reaction Status Date / Time fluconazole AdvReac Mild Unknown Verified 08/13/25 06:53 MEDICATIONS Ambulatory Orders Medication Instructions Recorded Confirmed albuterol sulfate 90 mcg/actuation 2 puff IH Q6HR PRN shortness of 02/09/24 08/13/25 breath activated powder inhaler breath or wheezing (ProAir RespiClick) ascorbic acid (vitamin C) 1,000 mg 1,000 mg PO DAILY 0 02/09/24 08/13/25 tablet docusate sodium 100 mg capsule 100 mg PO UD PRN consti pation 02/09/24 08/13/25 (Stool Softener) empagliflozin 5 mg-metformin 1,000 1 ea PO BID 4 08/13/25 mg tablet (Synjardy) furosemide 40 mg tablet 80 mg PO .QOD 02/09/2408/13 nitroglycerin 0.4 mg sublingual 0.4 mg sublingual Q5MI N PRN 02/09/24 08/13/25 tablet Moderate Pain (Level 4-6) rosuvastatin 40 mg tablet (Crestor) 40 mg PO DAILY 08/13/25 semaglutide (weight loss) 0.5 1 mg SQ UD 02/09/2407/24 mg/0.5 mL subcutaneous pen injector (Wegovy) spironolactone 25 mg tablet 12.5 mg PO DAILY 02/09/24 08/13/25 (Aldactone) tamsulosin 0.4 mg capsule 0.4 mg PO DAILY PM 02/09/24 08/13/25 warfarin 2.5 mg tablet 5 mg PO DAILY 04/05/2408/13 insulin regular hum U-500 conc 500 45 unit subcut BID 01/24/25 08/13/25 unit/mL(3 mL) subcut pen (Humulin R U-500 (Conc) Insulin Kwikpen) omeprazole 20 mg capsule,delayed 20 mg PO DAILY 08/13/25 release tiotropium 2.5 mcg-olodaterol 2.5 2 puff inhalation DA GODWIN 01/24/25 08/13/25 mcg/actuation mist for inhalation (Stiolto Respimat) abiraterone 500 mg tablet 1,000 mg (2 x 500 mg) PO YAN LY #60 02/02/25 08/13/25 tabs prednisone 5 mg tablet 5 mg PO DAILY #90 tabs 07/1208/13/25 folic acid 1 mg tablet 1 mg PO DAILY 08/13/2508/13 metoprolol succinate 50 mg 50 mg PO BID 08/13/2508/13 tablet,extended release 24 hr PHYSICAL EXAM AT DISCHARGE Vital Signs: Vital Signs x48h Temp Pulse Resp BP Pulse Ox 08/16/25 07:43 98.4 F 72 18 126/67 97 Objective Comments/Other: Frail-appearing man, appears stated age. Answering appropriately. Constitutional normal general appearance and (frail appearing), no distress noted and abnormal body habitus (thin) [facility] normocephalic, head/scalp atraumatic and hearing grossly normal bilaterally Eyes PERRL, EOMs intact bilaterally and conjunctivae normal Chest inspection of chest normal and palpation of chest normal Respiratory breath sounds equal bilaterally and normal respiratory effort Mild rhonchi noted in bibasilar regions. Cardiovascular normal heart rate noted, regular rhythm noted, no gallop, no rub and no murmur - paced rhythm Gastrointestinal abdomen normal to inspection, abdomen soft to palpation, nontender to palpation and nontender to percussion Extremities normal to inspection, normal to palpation, no tenderness and full ROM Neurology no movement abnormality noted and no focal motor deficit noted Psychiatry mental status grossly normal, oriented x3, thought process normal, cooperative and affect normal Skin skin color normal, no rash and no lesions LABS 08/16/25 07:20 08/16/25 07:20 SEPSIS Current Stage of Sepsis: Resolved FOLLOW UP Follow Up: Transfer to acute [facility] hospital. TIME SPENT Time Spent in Discharge (Minutes): 35 Discharge Plan Discharge Patient Disposition: 02 Transfer Acute Care Hosp Condition: Stable Prescriptions: Continued abiraterone 500 mg tablet 1,000 mg PO DAILY Qty: 60 4RF ProAir RespiClick 90 MCG aerosol powdr breath activated 2 puff IH Q6HR PRN (Reason: shortness of breath or wheezing) furosemide 40 MG tablet 80 mg PO .QOD Patient Comments: Taking 80 mg every other day ascorbic acid (vitamin C) 1,000 MG tablet 1,000 mg PO DAILY spironolactone [Aldactone] 25 MG tablet 12.5 mg PO DAILY tamsulosin 0.4 MG capsule 0.4 mg PO DAILY PM Patient Comments: Patient states only taking 1 cap (0.4mg) every night nitroglycerin 0.4 MG tablet, sublingual 0.4 mg sublingual Q5MIN PRN (Reason: Moderate Pain (Level 4-6)) docusate sodium [Stool Softener] 100 MG capsule 100 mg PO UD PRN (Reason: constipation) rosuvastatin [Crestor] 40 MG tablet 40 mg PO DAILY Synjardy 1 EACH tablet 1 ea PO BID Wegovy 0.5 MG/0.5 ML pen injector 1 mg SQ UD Patient Comments: Wednesday warfarin 2.5 MG tablet 5 mg PO DAILY omeprazole 20 mg capsule,delayed release(DR/EC) 20 mg PO DAILY Stiolto Respimat 2.5-2.5 mcg/actuation mist 2 puff inhalation DAILY metoprolol succinate 50 mg tablet extended release 24 hr 50 mg PO BID folic acid 1 mg tablet 1 mg PO DAILY prednisone 5 mg tablet 5 mg PO DAILY Qty: 90 2RF Discontinued Humulin R U-500 (Conc) Kwikpen 500 unit/mL (3 mL) insulin pen 45 unit subcut BID Activity Restrictions: Activity as Tolerated Diet: Regular Print Language: Kiswahili Stand Alone Forms: PCP List, SBIRT Follow-up Care: Uriel Crystal MD [Primary Care Provider, Internal Medicine] Report called to and time (if no answer, doc. time of each call attempted): R itu, IZAIAH [facility] - at 0134. Vitals documented within 30 minutes of discharge?: Yes"
[2025-08-16] MEDS ORDERED: SODIUM CHLORIDE 0.9% MINIBAG 100 ML IV ONE (11:41)
--- NOTE | 2025-08-16 12:15 | PROVIDER PROGRESS NOTE ---
Subjective Subjective Subjective: Patient continues to improve. He denies fevers, chills, shortness of breath. He is feeling better. We discussed his repeat blood cultures. With them being positive, we talked about the possibility of pacemaker and valve infection. We also discussed need for likely ROSA and further workup. Current Medications Current Medications Current Medications: Current Medications Generic Name Dose Route Start Last Admin Trade Name Freq PRN Reason Stop Dose Admin Acetaminophen 650 mg 08/13/25 12:27 08/15/25 05:56 Acetaminophen 325 Mg Tablet PO 650 mg Q4HR PRN Administration Pain 1 to 4, or Fever Albuterol/Ipratropium 3 ml 08/13/25 15:00 08/16/25 07:06 Ipratropium/Albuterol 3 Ml Neb INH 3 ml RTQID DOUGLAS Administration Ascorbic Acid 1,000 mg 08/14/25 09:00 08/16/25 08:45 Ascorbic Acid 500 Mg Tablet PO 1,000 mg DAILY DOUGLAS Administration Atorvastatin Calcium 80 mg 08/13/25 21:00 08/15/25 20:39 Atorvastatin 40 Mg Tablet PO 80 mg QPM DOUGLAS Administration Empagliflozin 10 mg 08/15/25 09:00 08/16/25 08:44 Empagliflozin 10 Mg Tablet PO 10 mg DAILY DOUGLAS Administration Folic Acid 1 mg 08/14/25 09:00 08/16/25 08:44 Folic Acid 1 Mg Tablet PO 1 mg DAILY DOUGLAS Administration Furosemide 40 mg 08/16/25 09:00 08/16/25 08:44 Furosemide 40 Mg Tablet PO 40 mg QOD DOUGLAS Administration Ampicillin Sodium 2 gm/ Sodium 100 mls @ 100 mls/hr 08/15/25 12:00 08/16/25 11:45 Chloride IV 100 mls/hr Q6HR DOUGLAS Administration Insulin Glargine-yfgn 10 unit 08/13/25 21:00 08/15/25 20:44 Insulin Glargine-Yfgn 300 Unit/3 Ml Pen SUBQ 10 unit QPM DOUGLAS Administration Insulin Human Lispro 1 - 5 unit 08/13/25 12:27 08/16/25 11:44 Insulin Lispro 300 Unit/3 Ml Pen SUBQ 1 unit 0800,1200,1700,2100 DOUGLAS Administration Protocol Metoprolol Succinate 25 mg 08/14/25 21:00 08/16/25 08:44 Metoprolol Succinate 25 Mg Tablet PO 25 mg BID DOUGLAS Administration Ondansetron HCl 4 mg 08/13/25 12:27 Ondansetron Odt 4 Mg Tablet TL Q6HR PRN Nausea / Vomiting Ondansetron HCl 4 mg 08/13/25 13:50 Ondansetron Odt 4 Mg Tablet TL Q6HR PRN Nausea / Vomiting Ondansetron HCl 4 mg 08/13/25 13:50 Ondansetron 4 Mg/2 Ml Vial IVP Q6HR PRN Nausea / Vomiting Pantoprazole Sodium 40 mg 08/17/25 07:00 Pantoprazole 40 Mg Tablet PO QDAC DOUGLAS Abiraterone 500 Mg 2 each 08/14/25 09:00 08/16/25 08:45 Tablet PO 2 each DAILY DOUGLAS Administration Prednisone 5 mg 08/14/25 09:00 08/16/25 08:44 Prednisone 5 Mg Tablet PO 5 mg DAILY DOUGLAS Administration Sodium Chloride 10 ml 08/13/25 12:27 08/14/25 21:03 Sodium Chloride Flush 0.9% 10 Ml Syringe IVP 10 ml PRN PRN Administration NEEDED PER PROVIDER ORDERS Sodium Chloride 10 ml 08/13/25 12:27 08/16/25 08:46 Sodium Chloride Flush 0.9% 10 Ml Syringe IVP 10 ml 0100,0900,1700 DOUGLAS Administration Sodium Chloride 10 ml 08/13/25 17:00 08/16/25 08:46 Sodium Chloride Flush 0.9% 10 Ml Syringe IVP Not Given 0100,0900,1700 DOUGLAS Sodium Chloride 10 ml 08/13/25 13:50 Sodium Chloride Flush 0.9% 10 Ml Syringe IVP PRN PRN NEEDED PER PROVIDER ORDERS Tamsulosin HCl 0.4 mg 08/14/25 21:00 08/15/25 20:40 Tamsulosin 0.4 Mg Capsule PO 0.4 mg HS DOUGLAS Administration Warfarin Sodium 5 mg 08/14/25 09:00 08/16/25 08:52 Warfarin 5 Mg Tablet PO 5 mg DAILY DOUGLAS Administration Objective Vital Signs/Intake & Output Reviewed Vital Signs: Yes Vital Signs: Vital Signs x48h Temp Pulse Pulse Pulse Resp BP Pulse Ox 08/16/25 07:43 98.4 F 72 18 126/67 97 08/16/25 07:07 70 20 08/16/25 06:00 98.2 F 71 16 132/71 H 96 Intake & Output: Intake & Output 08/13/25 08/14/25 08/15/25 08/16/25 23:59 23:59 23:59 23:59 Intake Total 5312 / 5312 3357 / 3357 2626 / 2626 440 / 440 Output Total 2532 / 2532 2445 / 2445 5010 / 5010 1650 / 1650 Balance 2780 / 2780 912 / 912 -2384 / -2384 -1210 / -1210 Weight (kg) 83 kg 80 kg 80 kg 83.8 kg Objective Comments/Other: Frail-appearing man, appears stated age. Answering appropriately. Constitutional normal general appearance and (frail appearing), no distress noted and abnormal body habitus (thin) [facility] normocephalic, head/scalp atraumatic and hearing grossly normal bilaterally Eyes PERRL, EOMs intact bilaterally and conjunctivae normal Chest inspection of chest normal and palpation of chest normal Respiratory breath sounds equal bilaterally and normal respiratory effort Mild rhonchi noted in bibasilar regions. Cardiovascular normal heart rate noted, regular rhythm noted, no gallop, no rub and no murmur - paced rhythm Gastrointestinal abdomen normal to inspection, abdomen soft to palpation, nontender to palpation and nontender to percussion Extremities normal to inspection, normal to palpation, no tenderness and full ROM Neurology no movement abnormality noted and no focal motor deficit noted Psychiatry mental status grossly normal, oriented x3, thought process normal, cooperative and affect normal Skin skin color normal, no rash and no lesions Lab Results 08/16/25 07:20 08/16/25 07:20 Other Labs: Lab Results x24hrs 08/16/25 08/16/25 08/16/25 Range/Units 11:36 07:28 07:20 WBC 6.4 (4.8-10.8) x10^3/uL RBC 4.08 L (4.70-6.10) 10^6/uL Hgb 10.9 L (14.0-18.0) g/dL Hct 34.7 L (42.0-52.0) % MCV 85.0 (80.0-94.0) fL MCH 26.7 L (27.0-31.0) pg MCHC 31.4 L (32.0-36.0) g/dL RDW 19.0 H (12.0-15.0) % Plt Count 65 L (130-450) 10^3/uL MPV 11.7 H (7.4-11.4) fL Sodium 142 (135-145) mmol/L Potassium 3.7 (3.5-4.5) mmol/L Chloride 107 (101-111) mmol/L Carbon Dioxide 29 (21-32) mmol/L Anion Gap 6.0 (6-13) BUN 20 (6-20) mg/dL Creatinine 0.7 (0.6-1.3) mg/dL Estimated GFR (MDRD) 110 (>89) Glucose 117 H (74-104) mg/dL POC Whole Bld Glucose 146 118 (70-100) mg/dL Calcium 9.2 (8.5-10.3) mg/dL Magnesium 1.7 (1.7-2.3) mg/dL 08/15/25 08/15/25 08/15/25 Range/Units 20:31 17:04 12:19 WBC (4.8-10.8) x10^3/uL RBC (4.70-6.10) 10^6/uL Hgb (14.0-18.0) g/dL Hct (42.0-52.0) % MCV (80.0-94.0) fL MCH (27.0-31.0) pg MCHC (32.0-36.0) g/dL RDW (12.0-15.0) % Plt Count (130-450) 10^3/uL MPV (7.4-11.4) fL Sodium (135-145) mmol/L Potassium (3.5-4.5) mmol/L Chloride (101-111) mmol/L Carbon Dioxide (21-32) mmol/L Anion Gap (6-13) BUN (6-20) mg/dL Creatinine (0.6-1.3) mg/dL Estimated GFR (MDRD) (>89) Glucose (74-104) mg/dL POC Whole Bld Glucose 168 125 161 (70-100) mg/dL Calcium (8.5-10.3) mg/dL Magnesium (1.7-2.3) mg/dL Assessment/Plan Problem List (1) Bacteremia due to Enterococcus: (2) Septic shock: Qualifiers: Sepsis type: sepsis due to unspecified organism Qualified Code(s): A 41.9 - Sepsis, unspecified organism; R65.21 - Severe sepsis with septic shock (3) Pneumonia: Impression: The following plan is for the above two assessments: Patient presented after being found down. Unclear if he syncopized, as he was responsive but altered when found. Hypotensive with a leukocytosis, elevated procalcitonin level, elevated lactic acid. Chest x-ray with patchy infiltrates noted. Respiratory viral panel positive for adenovirus. He notes chills, postnasal drip, sinus congestion, and weakness over the last 2 weeks. Blood cultures positive for Enterococcus faecalis. Unclear source for this - UA negative. Enterococcus pneumonia is rare, but a possibility. Patient advised to complete colonoscopy screening on discharge for possible GI translocation source. Repeat blood cultures at 48 hours positive. Concern for aortic valve, pacemaker infection - he may need ROSA, evaluation of TAVR in place, etc. [facility] spoken with. Hospitalist agreeable to transfer for further specialty care (cardiology, infectious disease) for persistent bacteremia. Awaiting bed placement. Initially received broad treatment with Zosyn and vancomycin; susceptibilities confirmed today, switched to ampicillin.Patient would prefer home infusions. However, he is significantly debilitated, and PT eval has been ordered for possible SNF placement. Despite 3 L of IV fluid resuscitation, patient remained hypotensive. Central line placed, Levophed was started. Weaned off 08/14. Qualifiers: Pneumonia type: due to unspecified organism Laterality: left Lung location: unspecified part of lung Qualified Code(s): J18.9 - Pneumonia, unspecified organism (4) Syncope and collapse: Impression: Unclear if patient syncopized. Found down by son, confused and altered. Continue cardiac telemetry - remains in paced rhythm. CT head, CT cervical spine without any acute abnormalities noted. ECHO ordered. (5) Lactic acidosis: Impression: Resolved. Hypoperfusion in setting of septic shock. (6) Iron deficiency anemia: Impression: Hemoglobin 14.2 on admission, likely hemoconcentrated in setting of dehydration. Now back at baseline around 11-12. Qualifiers: Iron deficiency anemia type: unspecified iron deficiency Qualified Code(s): D50.9 - Iron deficiency anemia, unspecified (7) Thrombocytopenia: Impression: Stable. No active bleeding noted. (8) Diabetes mellitus: Impression: A1c of 7.4%. Continue low-dose sliding scale at this time, 10 units Lantus, and uptitrate as necessary. At home, he was taking up to 45 units of U-500 insulin (divided in two doses.) Broadcaster consulted. Qualifiers: Diabetes mellitus type: type 2 Diabetes mellitus senior care insulin use: unspecified senior care insulin use status Diabetes mellitus complication status: with other specified complication Qualified Code(s): E11.69 - Type 2 diabetes mellitus with other specified complication (9) Pacemaker: Impression: Telemetry reviewed, patient currently in paced rhythm. (10) Afib: Impression: Currently in paced rhythm. Continue Coumadin as per home medication. Qualifiers: Atrial fibrillation type: unspecified Qualified Code(s): I48.91 - Unspecified atrial fibrillation (11) HTN (hypertension): Impression: Resume metoprolol. Qualifiers: Hypertension type: unspecified Qualified Code(s): I10 - Essential (primary) hypertension (12) Recurrent prostate cancer: Impression: Patient on hormonal therapycontinue Synjardy, abiraterone, prednisone.
[2025-08-16 15:29] VITALS: BP 136/73; TEMP 98.1; O2SAT 99
[2025-08-17] MEDS ORDERED: PANTOPRAZOLE 40 MG TABLET PO SCH (07:00)
== END 2025-08-16 15:15 | disposition short-term general hospital (02) | DRG 871 ==
LOC: ED 06:42 → ICU 08:45 → MS2 09:30 → ICU 12:15 → MS2 08-15 13:16
PROVIDERS: ADMIT Internal Medicine; ATTEND Internal Medicine
DX: D69.6 Thrombocytopenia, unspecified; Z79.4 Long term (current) use of insulin; F17.210 Nicotine dependence, cigarettes, uncomplicated; Z79.01 Long term (current) use of anticoagulants; J44.0 Chronic obstructive pulmonary disease with (acute) lower respiratory infection; Z79.899 Other long term (current) drug therapy; I48.91 Unspecified atrial fibrillation; Z79.52 Long term (current) use of systemic steroids; Z95.0 Presence of cardiac pacemaker; E11.69 Type 2 diabetes mellitus with other specified complication; Z11.52 Encounter for screening for COVID-19; A41.81 Sepsis due to Enterococcus; Z86.73 Personal history of transient ischemic attack (TIA), and cerebral infarction without residual deficits; Z95.2 Presence of prosthetic heart valve; I10 Essential (primary) hypertension; G93.40 Encephalopathy, unspecified; I44.2 Atrioventricular block, complete; C61 Malignant neoplasm of prostate; A41.9 Sepsis, unspecified organism; J18.9 Pneumonia, unspecified organism; Z79.84 Long term (current) use of oral hypoglycemic drugs; Z79.85 Long-term (current) use of injectable non-insulin antidiabetic drugs; R65.21 Severe sepsis with septic shock; S00.81XA Abrasion of other part of head, initial encounter; I44.7 Left bundle-branch block, unspecified; W19.XXXA Unspecified fall, initial encounter; E87.20 Acidosis, unspecified; D50.9 Iron deficiency anemia, unspecified; Z63.4 Disappearance and death of family member; R55 Syncope and collapse